=== PATIENT | female | born 1960 | race Caucasian/White ===

== ENCOUNTER 2016-05-05 00:14 | Inpatient (IN) | payer OTHER ==
[~2016-05-05] VITALS: Ht 170.2 cm; Wt 103.9 kg
[2016-05-05] VITALS (23 sets, daily range): BP systolic 76–121; BP diastolic 41–84
[2016-05-05 00:36] LABS: BASO % 1 % (0-3); EOS % 6 % (0-3); HEMATOCRIT 30.6 % (36.0-47.0); HEMOGLOBIN 10.4 g/dL (12.0-15.5); LYMPH % 30 % (24-48); MEAN CORPUSCULAR HEMOGLOBIN 32 pg (25-35); MEAN CORPUSCULAR HGB CONC 34 g/dL (31-37); MEAN CORPUSCULAR VOLUME 94 fL (79-100); MONO % 10 % (0-9); NEUT % 53 % (31-73); PLATELET COUNT 68 x10^3/uL (140-400); RED BLOOD COUNT 3.24 x10^6/uL (3.50-5.40); RED CELL DISTRIBUTION WIDTH 15.7 % (11.5-14.5); WHITE BLOOD COUNT 3.2 x10^3/uL (4.0-11.0)
[2016-05-05 00:43] LABS: INR 1.5 (0.8-1.1); PROTHROMBIN TIME PATIENT 17.4 SEC (11.7-14.0)
[2016-05-05 00:46] LABS: CALCIUM 8.6 mg/dL (8.5-10.1); CREATININE 0.8 mg/dL (0.6-1.0); GFR 74.2
[2016-05-05 00:52] LABS: ETHANOL < 10 mg/dL (0-10)
[2016-05-05 00:53] LABS: ALBUMIN 1.8 g/dL (3.4-5.0); DIRECT BILIRUBIN 0.4 mg/dL (0.0-0.2); TOTAL BILIRUBIN 1.1 mg/dL (0.2-1.0); TOTAL PROTEIN 4.9 g/dL (6.4-8.2)
--- NOTE | 2016-05-05 01:23 | PHYS DOC ---
Past Medical History Past Medical History: Asthma, Depression, GERD, Hypertension, Other Additional Past Medical Histor: PTSD, CIRRHOSIS Past Surgical History: Other Additional Past Surgical Histo: UNKOWN Alcohol Use: None Drug Use: None Adult General Chief Complaint Chief Complaint: OVERDOSE HPI HPI Patient is a 55 year old female who presents by EMS after calling her sister stating that she took multiple drugs to kill herself. Nursing spoke to sister via phone, who stated that the patient called her threatening to kill herself because she cannot stay with her today. Sister has been staying with her because of recent depression. Patient denies suicidality. Patient admits to taking medications today, but she will not tell when she took it, what she took , or how much she took. An empty bottle of Seroquel was found in her home by EMS , this bottle was filled 2 months. She denies Tylenol, aspirin, alcohol intake. She denies hallucinations, headache, vision changes, dizziness, numbness , tingling, weakness, chest pain, dyspnea, abdominal pain, nausea or vomiting, diarrhea, dysuria, fever or chills. Review of Systems Review of Systems Constitutional: Denies fever or chills [] Eyes: Denies change in visual acuity, redness, or eye pain [] HENT: Denies nasal congestion or sore throat [] Respiratory: Denies cough or shortness of breath [] Cardiovascular: No additional information not addressed in HPI [] GI: Denies abdominal pain, nausea, vomiting, bloody stools or diarrhea [] : Denies dysuria or hematuria [] Musculoskeletal: Denies back pain or joint pain [] Integument: Denies rash or skin lesions [] Neurologic: Denies headache, focal weakness or sensory changes [] Endocrine: Denies polyuria or polydipsia [] Current Medications Current Medications Current Medications Medications (Trade) Dose Ordered Sig/Sarah Start Time Stop Time Status Last Admin Dose Admin Acetaminophen (Tylenol) 650 mg PRN Q4HRS PRN 05/05/16 01:30 05/06/16 01:29 Lorazepam (Ativan) 1 mg 1X ONCE 05/05/16 01:45 05/05/16 01:46 UNV 05/05/16 01:45 1 MG Ondansetron HCl (Zofran) 4 mg PRN Q8HRS PRN 05/05/16 01:30 05/06/16 01:29 Allergies Allergies Allergies Coded Allergies Type Severity Reaction Last Updated Verified azithromycin Allergy Intermediate 05/05/16 Yes diphenhydramine Allergy Intermediate 05/05/16 Yes morphine Allergy Intermediate 05/05/16 Yes Physical Exam Physical Exam Constitutional: Well developed, well nourished, no acute distress, non-toxic appearance. [] HENT: Normocephalic, atraumatic, bilateral external ears normal, oropharynx moist, no oral exudates, nose normal. [] Eyes: PERRLA, EOMI, conjunctiva normal, no discharge. [] Neck: Normal range of motion, no tenderness, supple, no stridor. [] Cardiovascular:Heart rate regular rhythm [] Lungs & Thorax: Bilateral breath sounds clear to auscultation [] Abdomen: Bowel sounds normal, soft, no tenderness. [] Skin: Warm, dry, no erythema, no rash. [] Back: No tenderness, no CVA tenderness. [] Extremities: No tenderness, ROM intact, no edema. [] Neurologic: Alert and oriented to self only, normal motor function, normal sensory function, no focal deficits noted, cranial nerves II through XII intact , slightly slurred speech. [] Psychologic: Affect normal, judgement impaired by suspected intoxication, mood tearful. [] Current Patient Data Vital Signs Vital Signs Date Time Temp Pulse Resp B/P Pulse Ox O2 Delivery O2 Flow Rate FiO2 05/05/16 00:15 97.8 69 12 101/55 97 Nasal Cannula 2 97.8 Lab Values Laboratory Tests Test 05/05/16 00:20 White Blood Count 3.2x10^3/uL (4.0-11.0) L Red Blood Count 3.24x10^6/uL (3.50-5.40) L Hemoglobin 10.4g/dL (12.0-15.5) L Hematocrit 30.6% (36.0-47.0) L Mean Corpuscular Volume 94fL (79-100) Mean Corpuscular Hemoglobin 32pg (25-35) Mean Corpuscular Hemoglobin Concent 34g/dL (31-37) Red Cell Distribution Width 15.7% (11.5-14.5) H Platelet Count 68x10^3/uL (140-400) L Neutrophils (%) (Auto) 53% (31-73) Lymphocytes (%) (Auto) 30% (24-48) Monocytes (%) (Auto) 10% (0-9) H Eosinophils (%) (Auto) 6% (0-3) H Basophils (%) (Auto) 1% (0-3) Neutrophils # (Auto) 1.7x10^3uL (1.8-7.7) L Lymphocytes # (Auto) 1.0x10^3/uL (1.0-4.8) Monocytes # (Auto) 0.3x10^3/uL (0.0-1.1) Eosinophils # (Auto) 0.2x10^3/uL (0.0-0.7) Basophils # (Auto) 0.0x10^3/uL (0.0-0.2) Prothrombin Time 17.4SEC (11.7-14.0) H Prothrombin Time INR 1.5 (0.8-1.1) H Sodium Level 143mmol/L (136-145) Potassium Level 4.0mmol/L (3.5-5.1) Chloride Level 110mmol/L (98-107) H Carbon Dioxide Level 28mmol/L (21-32) Anion Gap 5 (6-14) L Blood Urea Nitrogen 16mg/dL (7-20) Creatinine 0.8mg/dL (0.6-1.0) Estimated GFR (Cockcroft-Gault) 74.2 Glucose Level 111mg/dL (70-99) H Calcium Level 8.6mg/dL (8.5-10.1) Total Bilirubin 1.1mg/dL (0.2-1.0) H Direct Bilirubin 0.4mg/dL (0.0-0.2) H Aspartate Amino Transferase (AST) 72U/L (15-37) H Alanine Aminotransferase (ALT) 39U/L (14-59) Alkaline Phosphatase 89U/L (46-116) Total Protein 4.9g/dL (6.4-8.2) L Albumin 1.8g/dL (3.4-5.0) L Salicylates Level < 2.8mg/dL (2.8-20.0) L Salicylate Last Dose Date Unk Salicylate Last Dose Time Unk Acetaminophen Level 4.1mcg/ml (10-30) L Acetaminophen Last Dose Date Unk Acetaminophen Last Dose Time Unk Ethyl Alcohol Level < 10mg/dL (0-10) Laboratory Tests 05/05/16 00:20 Laboratory Tests 05/05/16 00:20 EKG EKG EKG as interpreted by me as normal sinus rhythm, rate 66, no ST-T changes, normal intervals, no ectopy Radiology/Procedures Radiology/Procedures Chest xray as interpreted by me with no acute cardiopulmonary disease process Course & Med Decision Making Course & Med Decision Making Pertinent Labs and Imaging studies reviewed. (See chart for details) Workup is unremarkable. Her vital signs have stayed stable, other than being on 2 L nasal cannula. She has some agitation, of which she was given ativan IV. Due to unknown time of ingestion, the patient remains critical as intoxicants could up titrate. Will admit to ICU for close monitoring of unknown substance overdose. Discussed case with Dr. Bang, who will admit. Dragon Disclaimer Dragon Disclaimer This electronic medical record was generated, in whole or in part, using a voice recognition dictation system. Departure Departure Impression: Primary Impression: Suicidal overdose Additional Impression: Altered mental status Disposition: 09 ADMITTED INPATIENT Condition: CRITICAL Referrals: ILDA WILKINS MD (PCP) Problem Qualifiers Primary Impression: Suicidal overdose Encounter type: initial encounter Qualified Code: T50.902A - Poisoning by unspecified drugs, medicaments and biological substances, intentional self-harm , initial encounter Additional Impression: Altered mental status Altered mental status type: disorientation Qualified Code: R41.0 - Disorientation, unspecified Kevin FREITAS MD May 05, 2016 01:23
[2016-05-05] MEDS ORDERED: ACETAMINOPHEN 325 MG TABLET. PO PRN (01:30)
[2016-05-05] MEDS ORDERED: ONDANSETRON PF 4 MG/2 ML VIAL. IV PRN (01:30)
[2016-05-05] MEDS ORDERED: LORAZEPAM 2 MG/ML VIAL IV ONE (01:45)
[2016-05-05] MEDS ORDERED: RIFA550T PO (04:32)
[2016-05-05] MEDS ORDERED: LANS30CA PO (04:32)
[2016-05-05] MEDS ORDERED: ONDA4TAB12 PO (04:32)
[2016-05-05] MEDS ORDERED: CIPR500T PO (04:32)
[2016-05-05] MEDS ORDERED: SPIR50TA2 PO (04:33)
[2016-05-05] MEDS ORDERED: PROAIR HFA8.5 GM INH (04:33)
[2016-05-05] MEDS ORDERED: PROP10TA PO (04:33)
[2016-05-05] MEDS ORDERED: FOLI1TAB16 PO (04:33)
--- NOTE | 2016-05-05 05:23 | ACF ---
Admission Forms Criteria PSYCHIATRIC DISORDERS Clinical Indications for Inpatient Care (Place 'X' for any and all applicable criteria): Ongoing inpatient care may be needed for ANY ONE of the following(1)(2)(3)(4)(6) (7)(8): [X]I. Danger to self or others not manageable at lower level of care. [ ]II. Grave disability (eg, inability to perform self care necessary at lower level of care) [ ]III. Agitation or inappropriate behavior interfering with care for primary condition (eg, attempting to discontinue lines or drains prematurely, unable to cooperate with respiratory care) [ ]IV. Severe disability or disorder indicated by ALL of the following: [ ]a) Severe behavioral health disorder-related symptoms or condition indicated by ANY ONE of the following: [ ]i) Severe problem with cognition, memory, judgment, or impulse control [ ]ii) Severe clinical manifestations (eg, hallucinations, delusions, other acute psychotic symptoms, jesse, extreme agitation or anxiety) [ ]b) Patient management at lower level of care is not feasible until acute intervention or modification is initiated. Extended stay beyond goal length of stay for the primary condition may be indicated when ANY ONE of the following is present: (1)(2)(3)(4): [ ]a) Patient is a danger to self or others and not manageable at lower level of care. [ ]b) Behavior crisis management, including physical or chemical restraints, is required and is not available at a lower level of care. [ ]c) Behavioral symptoms (e.g., agitation, somnolence, inappropriate behavior) are present, and are not manageable at a lower level of care. [ ]d) Patient cannot understand follow-up treatment and crisis plan. [ ]e) Provider and supports are not sufficiently available at lower level of care. [ ]f) Patient cannot participate (e.g., verify absence of plan for harm) and is in needed of monitoring. The original [employer] content created by [employer] has been revised. The portions of the content which have been revised are identified through the use of italic text or in bold, and [facility] has neither reviewed nor approved the modified material. All other unmodified content is copyright [facility] [employer]. Please see references footnoted in the original [facility] edition 2016 Admission Criteria Met?: Yes TIAN STEWART May 05, 2016 05:23
[2016-05-05] MEDS: IV NORMAL SALINE 1000ML BAG 1,000 ML IV SCH ×2 (07:55→16:45)
--- NOTE | 2016-05-05 08:33 | RAD ---
EXAM: Chest one view. HISTORY: Altered mental status. COMPARISON: 08/23/2009. FINDINGS: A frontal view of the chest is obtained. There are no confluent infiltrates. There is no pneumothorax or pleural effusion. The heart is not enlarged. IMPRESSION: 1. No confluent infiltrates.
[2016-05-05] MEDS: PROPRANOLOL 10 MG TABLET. PO SCH ×2 (09:00→21:00)
[2016-05-05] MEDS: FOLIC ACID 1 MG TABLET PO SCH (09:00)
--- NOTE | 2016-05-05 09:01 | PDOC1 ---
History and Physical Date of Admission Date of Admission DATE: 05/05/16 TIME: 08:53 Identification/Chief Complaint Chief Complaint suicide attempt Source Source: Caregiver, Chart review History of Present Illness History of Present Illness Ms. Powell, is a 55 year old female admit to ICU, admit fos suicide attempt. She called her sister stating that she took multiple drugs to kill herself. Reported full bottle of seroquel. maybe 2 months of doses Given ativan in the ER for restlessness, agitated in the ER, was talking to the ER MD, but now is obtunded and not verbal. reported that her sister has been staying with her because of recent depression. Past Medical History GI: GERD, Irritable bowel disease Psych: Depression Current Problem List Problem List Problems Medical Problems: (1) Altered mental status Status: Acute (2) Suicidal overdose Status: Acute Problems: Current Medications Current Medications Current Medications Ondansetron HCl (Zofran) 4 mg PRN Q8HRS PRN IV NAUSEA/VOMITING; Start 05/05/16 at 01:30; Stop 05/06/16 at 01:29 Acetaminophen (Tylenol) 650 mg PRN Q4HRS PRN PO FEVER; Start 05/05/16 at 01:30 ; Stop 05/06/16 at 01:29 Lorazepam 1 mg 1 mg 1X ONCE IV Last administered on 05/05/16 01:45; Start 02/09 at 01:45; Stop 05/05/16 at 03:23; Status DC Sodium Chloride (Iv Sodium Chloride 0.9% 1000ml Bag) 1,000 ml @ 100 mls/hr Q10H IV Last administered on 05/05/16 07:55; Start 05/05/16 at 08:00 Active Scripts Active Reported Proair Hfa Inhaler (Albuterol Sulfate) 8.5 Gm Hfa.aer.ad 1 Puff INH Folic Acid 1 Mg Tablet 1 Mg PO Spironolactone 50 Mg Tablet 50 Mg PO Propranolol Hcl 10 Mg Tablet 10 Mg PO Lansoprazole 30 Mg Capsule.dr 30 Mg PO Xifaxan (Rifaximin) 550 Mg Tablet 1 Tab PO Ciprofloxacin Hcl 500 Mg Tablet 1 Tab PO Ondansetron Odt (Ondansetron) 4 Mg Tab.rapdis 1 Tab PO Allergies Allergies: Coded Allergies: azithromycin (Verified Allergy, Intermediate, 05/05/16) diphenhydramine (Verified Allergy, Intermediate, 05/05/16) morphine (Verified Allergy, Intermediate, 05/05/16) ROS Review of System unable, pt obtunded Physical Exam Physical Exam tele, reg sinus 65 General: No acute distress, Other (obtunded) HEENT: Atraumatic, PERRLA Lungs: Clear to auscultation, Normal air movement Heart: RRR, no murmurs Abdomen: Normal bowel sounds, Soft Extremities: No clubbing, No edema Skin: No rashes, No significant lesion Neuro: Normal tone, Other Psych/Mental Status: Other Vitals Vitals Vital Signs Date Time Temp Pulse Resp B/P Pulse Ox O2 Delivery O2 Flow Rate FiO2 05/05/16 08:00 98.0 68 13 83/42 99 Nasal Cannula 2.0 98.0 Labs Labs Laboratory Tests Test 05/05/16 00:20 White Blood Count 3.2x10^3/uL (4.0-11.0) Red Blood Count 3.24x10^6/uL (3.50-5.40) Hemoglobin 10.4g/dL (12.0-15.5) Hematocrit 30.6% (36.0-47.0) Mean Corpuscular Volume 94fL (79-100) Mean Corpuscular Hemoglobin 32pg (25-35) Mean Corpuscular Hemoglobin Concent 34g/dL (31-37) Red Cell Distribution Width 15.7% (11.5-14.5) Platelet Count 68x10^3/uL (140-400) Neutrophils (%) (Auto) 53% (31-73) Lymphocytes (%) (Auto) 30% (24-48) Monocytes (%) (Auto) 10% (0-9) Eosinophils (%) (Auto) 6% (0-3) Basophils (%) (Auto) 1% (0-3) Neutrophils # (Auto) 1.7x10^3uL (1.8-7.7) Lymphocytes # (Auto) 1.0x10^3/uL (1.0-4.8) Monocytes # (Auto) 0.3x10^3/uL (0.0-1.1) Eosinophils # (Auto) 0.2x10^3/uL (0.0-0.7) Basophils # (Auto) 0.0x10^3/uL (0.0-0.2) Prothrombin Time 17.4SEC (11.7-14.0) Prothromb Time International Ratio 1.5 (0.8-1.1) Sodium Level 143mmol/L (136-145) Potassium Level 4.0mmol/L (3.5-5.1) Chloride Level 110mmol/L (98-107) Carbon Dioxide Level 28mmol/L (21-32) Anion Gap 5 (6-14) Blood Urea Nitrogen 16mg/dL (7-20) Creatinine 0.8mg/dL (0.6-1.0) Estimated GFR (Cockcroft-Gault) 74.2 Glucose Level 111mg/dL (70-99) Calcium Level 8.6mg/dL (8.5-10.1) Total Bilirubin 1.1mg/dL (0.2-1.0) Direct Bilirubin 0.4mg/dL (0.0-0.2) Aspartate Amino Transf (AST/SGOT) 72U/L (15-37) Alanine Aminotransferase (ALT/SGPT) 39U/L (14-59) Alkaline Phosphatase 89U/L (46-116) Total Protein 4.9g/dL (6.4-8.2) Albumin 1.8g/dL (3.4-5.0) Salicylates Level < 2.8mg/dL (2.8-20.0) Salicylate Last Dose Date Unk Salicylate Last Dose Time Unk Acetaminophen Level 4.1mcg/ml (10-30) Acetaminophen Last Dose Date Unk Acetaminophen Last Dose Time Unk Ethyl Alcohol Level < 10mg/dL (0-10) Laboratory Tests Test 05/05/16 00:20 White Blood Count 3.2x10^3/uL (4.0-11.0) Red Blood Count 3.24x10^6/uL (3.50-5.40) Hemoglobin 10.4g/dL (12.0-15.5) Hematocrit 30.6% (36.0-47.0) Mean Corpuscular Volume 94fL (79-100) Mean Corpuscular Hemoglobin 32pg (25-35) Mean Corpuscular Hemoglobin Concent 34g/dL (31-37) Red Cell Distribution Width 15.7% (11.5-14.5) Platelet Count 68x10^3/uL (140-400) Neutrophils (%) (Auto) 53% (31-73) Lymphocytes (%) (Auto) 30% (24-48) Monocytes (%) (Auto) 10% (0-9) Eosinophils (%) (Auto) 6% (0-3) Basophils (%) (Auto) 1% (0-3) Neutrophils # (Auto) 1.7x10^3uL (1.8-7.7) Lymphocytes # (Auto) 1.0x10^3/uL (1.0-4.8) Monocytes # (Auto) 0.3x10^3/uL (0.0-1.1) Eosinophils # (Auto) 0.2x10^3/uL (0.0-0.7) Basophils # (Auto) 0.0x10^3/uL (0.0-0.2) Prothrombin Time 17.4SEC (11.7-14.0) Prothromb Time International Ratio 1.5 (0.8-1.1) Sodium Level 143mmol/L (136-145) Potassium Level 4.0mmol/L (3.5-5.1) Chloride Level 110mmol/L (98-107) Carbon Dioxide Level 28mmol/L (21-32) Anion Gap 5 (6-14) Blood Urea Nitrogen 16mg/dL (7-20) Creatinine 0.8mg/dL (0.6-1.0) Estimated GFR (Cockcroft-Gault) 74.2 Glucose Level 111mg/dL (70-99) Calcium Level 8.6mg/dL (8.5-10.1) Total Bilirubin 1.1mg/dL (0.2-1.0) Direct Bilirubin 0.4mg/dL (0.0-0.2) Aspartate Amino Transf (AST/SGOT) 72U/L (15-37) Alanine Aminotransferase (ALT/SGPT) 39U/L (14-59) Alkaline Phosphatase 89U/L (46-116) Total Protein 4.9g/dL (6.4-8.2) Albumin 1.8g/dL (3.4-5.0) Salicylates Level < 2.8mg/dL (2.8-20.0) Salicylate Last Dose Date Unk Salicylate Last Dose Time Unk Acetaminophen Level 4.1mcg/ml (10-30) Acetaminophen Last Dose Date Unk Acetaminophen Last Dose Time Unk Ethyl Alcohol Level < 10mg/dL (0-10) VTE Prophylaxis Ordered VTE Prophylaxis Devices: No VTE Pharmacological Prophylaxi: No Assessment/Plan Assessment/Plan suicide attempt seroquel overdose, tele 24 hours, monitor QT interval on EKG major depression ICU admit, 1:1 GERD, irritable bowel overweight, BMI 30 LIZ COULTER MD May 05, 2016 09:01
[2016-05-05] MEDS: PANTOPRAZOLE 40 MG TABLET. PO SCH (09:10)
[2016-05-05] MEDS: RIFAXIMIN 550 MG TABLET PO SCH (09:10)
--- NOTE | 2016-05-05 12:52 | EKG ---
[facility] [address] [place] [address] Test Date: 2016-05-05 Test Time: 00:25:54 Pat Name: ANTONIO LUNDY Department: Room: Gender: F Data Migration Consultant: : 1960 Requested By: Kevin FREITAS Order Number: [id number] Reading MD: Measurements Intervals [place] Rate: 66 P: 59 CT: 142 QRS: 54 QRSD: 78 T: 38 QT: 436 QTc: 459 Interpretive Statements SINUS RHYTHM QRS(T) CONTOUR ABNORMALITY CONSIDER ANTEROLATERAL MYOCARDIAL DAMAGE CONSIDER INFERIOR MYOCARDIAL DAMAGE RI6.01 Unconfirmed report No previous ECG available for comparison
--- NOTE | 2016-05-05 18:24 | RAD ---
PROCEDURE Chest 1 view. HISTORY Wheezing. COMPARISON 05/05/2016 at 1:47. FINDINGS There is a new mild airspace opacity in the right base. Hyperinflation suggests chronic obstructive pulmonary disease or air trapping. There is no pneumothorax or pleural effusion. The heart is not enlarged. IMPRESSION - Hyperinflation suggests air trapping. - New mild atelectasis or infiltrate in the right base. Electronically signed by: Alex Gray (May 05, 2016 18:23:20)
[2016-05-06] VITALS (17 sets, daily range): BP systolic 94–153; BP diastolic 47–83
[2016-05-06] MEDS: IV NORMAL SALINE 1000ML BAG 1,000 ML IV SCH ×3 (01:53→20:26)
[2016-05-06 05:27] LABS: BASO % 1 % (0-3); EOS % 5 % (0-3); HEMATOCRIT 30.6 % (36.0-47.0); HEMOGLOBIN 10.4 g/dL (12.0-15.5); LYMPH # 0.6 x10^3/uL (1.0-4.8); LYMPH % 32 % (24-48); MEAN CORPUSCULAR HEMOGLOBIN 32 pg (25-35); MEAN CORPUSCULAR HGB CONC 34 g/dL (31-37); MEAN CORPUSCULAR VOLUME 94 fL (79-100); MONO % 10 % (0-9); NEUT % 52 % (31-73); PLATELET COUNT 52 x10^3/uL (140-400); RED BLOOD COUNT 3.26 x10^6/uL (3.50-5.40); RED CELL DISTRIBUTION WIDTH 16.2 % (11.5-14.5)
[2016-05-06 05:51] LABS: ALBUMIN 1.7 g/dL (3.4-5.0); ALBUMIN/GLOBULIN RATIO 0.5 (1.0-1.7); CALCIUM 7.8 mg/dL (8.5-10.1); CREATININE 0.7 mg/dL (0.6-1.0); GFR 86.6; POTASSIUM 3.9 mmol/L (3.5-5.1); TOTAL BILIRUBIN 0.8 mg/dL (0.2-1.0); TOTAL PROTEIN 4.8 g/dL (6.4-8.2)
[2016-05-06] MEDS: RIFAXIMIN 550 MG TABLET PO SCH (08:48)
[2016-05-06] MEDS: PANTOPRAZOLE 40 MG TABLET. PO SCH (08:48)
[2016-05-06] MEDS: PROPRANOLOL 10 MG TABLET. PO SCH ×2 (08:48→20:27)
[2016-05-06] MEDS: FOLIC ACID 1 MG TABLET PO SCH (08:48)
--- NOTE | 2016-05-06 09:50 | PDOC ---
PROGRESS NOTES Chief Complaint Chief Complaint Intentional drug overdose Suicide attempt ASSESSMENT AND PLAN: 1. Drug overdose: Seroquel ingestion w/o cardiac impairment. monitor on tele for now 2. Sedation: drug induced. await spontaneous recovery 3. SA: PAT team osiris 4. Dispo: transfer to floor Vitals Vitals Vital Signs Date Time Temp Pulse Resp B/P Pulse Ox O2 Delivery O2 Flow Rate FiO2 05/06/16 09:00 69 14 138/71 97 Nasal Cannula 2.0 05/06/16 07:00 97.6 97.6 Physical Exam General: No acute distress, Other (lethargic) Heart: Regular rate Lungs: Clear Abdomen: Normal bowel sounds, Soft Extremities: No clubbing, No edema Skin: No rashes Labs LABS Laboratory Tests Test 05/06/16 04:47 White Blood Count 2.0x10^3/uL (4.0-11.0) Red Blood Count 3.26x10^6/uL (3.50-5.40) Hemoglobin 10.4g/dL (12.0-15.5) Hematocrit 30.6% (36.0-47.0) Mean Corpuscular Volume 94fL (79-100) Mean Corpuscular Hemoglobin 32pg (25-35) Mean Corpuscular Hemoglobin Concent 34g/dL (31-37) Red Cell Distribution Width 16.2% (11.5-14.5) Platelet Count 52x10^3/uL (140-400) Neutrophils (%) (Auto) 52% (31-73) Lymphocytes (%) (Auto) 32% (24-48) Monocytes (%) (Auto) 10% (0-9) Eosinophils (%) (Auto) 5% (0-3) Basophils (%) (Auto) 1% (0-3) Neutrophils # (Auto) 1.1x10^3uL (1.8-7.7) Lymphocytes # (Auto) 0.6x10^3/uL (1.0-4.8) Monocytes # (Auto) 0.2x10^3/uL (0.0-1.1) Eosinophils # (Auto) 0.1x10^3/uL (0.0-0.7) Basophils # (Auto) 0.0x10^3/uL (0.0-0.2) Sodium Level 143mmol/L (136-145) Potassium Level 3.9mmol/L (3.5-5.1) Chloride Level 113mmol/L (98-107) Carbon Dioxide Level 26mmol/L (21-32) Anion Gap 4 (6-14) Blood Urea Nitrogen 14mg/dL (7-20) Creatinine 0.7mg/dL (0.6-1.0) Estimated GFR (Cockcroft-Gault) 86.6 BUN/Creatinine Ratio 20 (6-20) Glucose Level 78mg/dL (70-99) Calcium Level 7.8mg/dL (8.5-10.1) Total Bilirubin 0.8mg/dL (0.2-1.0) Aspartate Amino Transf (AST/SGOT) 93U/L (15-37) Alanine Aminotransferase (ALT/SGPT) 45U/L (14-59) Alkaline Phosphatase 69U/L (46-116) Total Protein 4.8g/dL (6.4-8.2) Albumin 1.7g/dL (3.4-5.0) Albumin/Globulin Ratio 0.5 (1.0-1.7) Review of Systems Review of Systems lethargic, states she is tired, but denies pain. not hungry DASIA SHARP MD May 06, 2016 09:50
[2016-05-07] VITALS (7 sets, daily range): BP systolic 119–145; BP diastolic 68–85
[2016-05-07] MEDS: TRAMADOL 50 MG TABLET. PO PRN ×2 (02:26→20:07)
[2016-05-07] MEDS ORDERED: IPRATRPIUM/ALBUTEROL 0.5/2.5MG 3 ML NEBU. ONE (03:41)
[2016-05-07] MEDS: IV NORMAL SALINE 1000ML BAG 1,000 ML IV SCH ×2 (06:05→18:00)
[2016-05-07] MEDS: PANTOPRAZOLE 40 MG TABLET. PO SCH (09:04)
[2016-05-07] MEDS: RIFAXIMIN 550 MG TABLET PO SCH (09:04)
[2016-05-07] MEDS: FOLIC ACID 1 MG TABLET PO SCH (09:04)
[2016-05-07] MEDS: PROPRANOLOL 10 MG TABLET. PO SCH ×2 (09:04→20:36)
--- NOTE | 2016-05-07 11:52 | PDOC ---
PROGRESS NOTES Chief Complaint Chief Complaint Intentional drug overdose Suicide attempt History of Present Illness History of Present Illness Patient was transferred from the ICU. No acute events overnight. She remains slightly groggy but responds to questions. She is now stating that she does not want to receive inpatient psychiatric treatment. Social work is following and helping with re-evaluation and placement. Vitals Vitals Vital Signs Date Time Temp Pulse Resp B/P Pulse Ox O2 Delivery O2 Flow Rate FiO2 05/07/16 11:04 98.4 72 18 132/73 94 Nasal Cannula 2.0 98.4 Physical Exam General: Alert, Cooperative, No acute distress, Other (lethargic) Heart: Regular rate, No murmurs Lungs: Clear, Other (no wheezing) Abdomen: Soft, No tenderness Extremities: No cyanosis, No edema Skin: No breakdown Review of Systems Review of Systems Denies chest pain and shortness of breath. Denies fever and chills. Assessment and Plan Assessmemt and Plan Problems Medical Problems: (1) Altered mental status Status: Acute (2) Suicidal overdose Status: Acute ASSESSMENT: 1. Drug overdose: Seroquel ingestion w/o cardiac impairment. 2. Sedation: drug induced. 3. Suicide attempt PLAN: Awaiting re-evaluation for possibility of outpatient psychiatric treatment since patient is no longer agreeable to inpatient treatment Continue tramadol Continue IVF, NS at 100ml/hr Continue 1:1 monitoring Continue to monitor daily labs PT/OT eval and treat Problems: Comment Review of Relevant I have reviewed the following items taamr (where applicable) has been applied. Labs Laboratory Tests Test 05/06/16 04:47 White Blood Count 2.0x10^3/uL (4.0-11.0) Red Blood Count 3.26x10^6/uL (3.50-5.40) Hemoglobin 10.4g/dL (12.0-15.5) Hematocrit 30.6% (36.0-47.0) Mean Corpuscular Volume 94fL (79-100) Mean Corpuscular Hemoglobin 32pg (25-35) Mean Corpuscular Hemoglobin Concent 34g/dL (31-37) Red Cell Distribution Width 16.2% (11.5-14.5) Platelet Count 52x10^3/uL (140-400) Neutrophils (%) (Auto) 52% (31-73) Lymphocytes (%) (Auto) 32% (24-48) Monocytes (%) (Auto) 10% (0-9) Eosinophils (%) (Auto) 5% (0-3) Basophils (%) (Auto) 1% (0-3) Neutrophils # (Auto) 1.1x10^3uL (1.8-7.7) Lymphocytes # (Auto) 0.6x10^3/uL (1.0-4.8) Monocytes # (Auto) 0.2x10^3/uL (0.0-1.1) Eosinophils # (Auto) 0.1x10^3/uL (0.0-0.7) Basophils # (Auto) 0.0x10^3/uL (0.0-0.2) Sodium Level 143mmol/L (136-145) Potassium Level 3.9mmol/L (3.5-5.1) Chloride Level 113mmol/L (98-107) Carbon Dioxide Level 26mmol/L (21-32) Anion Gap 4 (6-14) Blood Urea Nitrogen 14mg/dL (7-20) Creatinine 0.7mg/dL (0.6-1.0) Estimated GFR (Cockcroft-Gault) 86.6 BUN/Creatinine Ratio 20 (6-20) Glucose Level 78mg/dL (70-99) Calcium Level 7.8mg/dL (8.5-10.1) Total Bilirubin 0.8mg/dL (0.2-1.0) Aspartate Amino Transf (AST/SGOT) 93U/L (15-37) Alanine Aminotransferase (ALT/SGPT) 45U/L (14-59) Alkaline Phosphatase 69U/L (46-116) Total Protein 4.8g/dL (6.4-8.2) Albumin 1.7g/dL (3.4-5.0) Albumin/Globulin Ratio 0.5 (1.0-1.7) Medications Current Medications Ondansetron HCl (Zofran) 4 mg PRN Q8HRS PRN IV NAUSEA/VOMITING; Start 05/05/16 at 01:30; Stop 05/06/16 at 01:29; Status DC Acetaminophen (Tylenol) 650 mg PRN Q4HRS PRN PO FEVER Last administered on 05/05t 21:30; Start 05/05/16 at 01:30; Stop 05/06/16 at 01:29; Status DC Lorazepam 1 mg 1 mg 1X ONCE IV Last administered on 05/05/16 01:45; Start 02/09 at 01:45; Stop 05/05/16 at 03:23; Status DC Sodium Chloride (Iv Sodium Chloride 0.9% 1000ml Bag) 1,000 ml @ 100 mls/hr Q10H IV Last administered on 05/07/16 06:05; Start 05/05/16 at 08:00 Folic Acid (Folic Acid) 1 mg DAILY PO Last administered on 05/07/16 09:04; Start 05/05/16 at 09:00 Propranolol HCl (Inderal) 10 mg BID PO Last administered on 05/07/16 09:04; Start 05/05/16 at 09:00 Rifaximin (Xifaxan) 550 mg DAILY PO Last administered on 05/07/16 09:04; Start 05/05/16 at 10:00 Pantoprazole Sodium (Protonix) 40 mg DAILYAC PO Last administered on 05/07/16 09:04; Start 05/05/16 at 10:00 Tramadol HCl (Ultram) 50 mg PRN Q6HRS PRN PO PAIN Last administered on 02:26; Start 05/07/16 at 02:15 Albuterol Sulfate (Ventolin Neb Soln) 2.5 mg PRN QID PRN NEB COUGH; Start 05/07 at 03:15 Albuterol/ Ipratropium (Duoneb) 3 ml STK-MED ONCE .ROUTE ; Start 05/07/16 at 03: 41; Stop 05/07/16 at 03:51; Status DC Active Scripts Active Reported Proair Hfa Inhaler (Albuterol Sulfate) 8.5 Gm Hfa.aer.ad 1 Puff INH Folic Acid 1 Mg Tablet 1 Mg PO Spironolactone 50 Mg Tablet 50 Mg PO Propranolol Hcl 10 Mg Tablet 10 Mg PO Lansoprazole 30 Mg Capsule.dr 30 Mg PO Xifaxan (Rifaximin) 550 Mg Tablet 1 Tab PO Ciprofloxacin Hcl 500 Mg Tablet 1 Tab PO Ondansetron Odt (Ondansetron) 4 Mg Tab.rapdis 1 Tab PO Vitals/I & O Vital Sign - Last 24 Hours 05/06/16 05/06/16 05/06/16 05/06/16 12:00 12:00 16:00 16:42 Temp 98.0 98.3 98.0 98.3 Pulse 73 71 74 Resp 24 14 22 B/P 128/71 113/70 133/72 Pulse Ox 97 97 95 O2 Delivery Nasal Cannula Nasal Cannula Nasal Cannula Nasal Cannula O2 Flow Rate 2.0 2.0 2.0 2.0 05/06/16 05/06/16 05/06/16 05/06/16 19:22 20:00 20:27 23:14 Temp 98.0 98.3 98.0 98.3 Pulse 75 75 75 Resp 16 16 B/P 137/65 137/65 130/72 Pulse Ox 93 94 O2 Delivery Nasal Cannula Nasal Cannula Nasal Cannula O2 Flow Rate 2.0 2.0 2.0 05/07/16 05/07/16 05/07/16 05/07/16 02:26 03:00 04:00 07:15 Temp 97.9 98.7 97.9 98.7 Pulse 85 73 Resp 18 30 22 20 B/P 135/82 140/85 Pulse Ox 91 95 O2 Delivery Nasal Cannula Nasal Cannula Nasal Cannula Nasal Cannula O2 Flow Rate 2.0 2.0 2.0 2.0 05/07/16 05/07/16 05/07/16 09:04 09:06 11:04 Temp 98.4 98.4 Pulse 73 72 Resp 18 B/P 140/85 132/73 Pulse Ox 89 94 O2 Delivery Room Air Nasal Cannula O2 Flow Rate 2.0 Intake and Output 05/06/16 05/06/16 05/07/16 15:00 23:00 07:00 Intake Total 160 ml 1037 ml 600 ml Output Total 510 ml 60 ml 850 ml Balance -350 ml 977 ml -250 ml SIRISHA LEMONS III DO May 07, 2016 11:52
[2016-05-08] MEDS: IV NORMAL SALINE 1000ML BAG 1,000 ML IV SCH ×2 (01:57→11:33)
[2016-05-08 02:50] VITALS: BP 130/66
[2016-05-08] MEDS: TRAMADOL 50 MG TABLET. PO PRN ×2 (03:10→11:32)
[2016-05-08 06:51] LABS: CALCIUM 7.4 mg/dL (8.5-10.1); CREATININE 0.5 mg/dL (0.6-1.0); GFR 127.6; POTASSIUM 4.1 mmol/L (3.5-5.1)
[2016-05-08] MEDS: PANTOPRAZOLE 40 MG TABLET. PO SCH (07:18)
[2016-05-08 07:33] VITALS: BP 137/75
[2016-05-08 07:40] LABS: BASO # 0.1 x10^3/uL (0.0-0.2); BASO % 1 % (0-3); EOS % 7 % (0-3); HEMATOCRIT 36.4 % (36.0-47.0); HEMOGLOBIN 12.1 g/dL (12.0-15.5); LYMPH # 1.3 x10^3/uL (1.0-4.8); LYMPH % 20 % (24-48); MEAN CORPUSCULAR HEMOGLOBIN 32 pg (25-35); MEAN CORPUSCULAR HGB CONC 33 g/dL (31-37); MEAN CORPUSCULAR VOLUME 96 fL (79-100); MONO % 9 % (0-9); NEUT % 63 % (31-73); PLATELET COUNT 88 x10^3/uL (140-400); RED BLOOD COUNT 3.78 x10^6/uL (3.50-5.40); RED CELL DISTRIBUTION WIDTH 16.2 % (11.5-14.5); WHITE BLOOD COUNT 6.4 x10^3/uL (4.0-11.0)
[2016-05-08] MEDS: PROPRANOLOL 10 MG TABLET. PO SCH ×2 (08:39→21:10)
[2016-05-08] MEDS: FOLIC ACID 1 MG TABLET PO SCH (08:39)
[2016-05-08] MEDS: RIFAXIMIN 550 MG TABLET PO SCH (08:39)
[2016-05-08 10:54] VITALS: BP 160/84
[2016-05-08] MEDS: ALBUTEROL SULFATE 2.5 MG/3 ML NEBU. NEB PRN ×2 (12:02→14:51)
[2016-05-08 12:33] LABS: HCO3 ABG 27 mmol/L (21-28); PCO2 ABG 59 mmHg (35-46); PH ABG 7.28 (7.35-7.45); PO2 ABG 78 mmHg (75-108); SAT O2 ABG 95 % (92-99)
[2016-05-08 12:36] LABS: FIO2 ABG 32
--- NOTE | 2016-05-08 12:52 | RAD ---
Indication: Change in respiratory status. Technique: Upright portable chest radiograph was obtained. Comparison is from 3 days earlier. Findings: There is basilar atelectasis and/or infiltrate, right greater than left, with the right hemidiaphragm now obscured and the left hemidiaphragm partially obscured. The heart is not enlarged and there is no definite heart failure. Bony structures are intact. Impression: New basilar atelectasis and or infiltrate, right greater than left.
--- NOTE | 2016-05-08 13:55 | PDOC ---
PROGRESS NOTES Chief Complaint Chief Complaint Intentional drug overdose Suicide attempt History of Present Illness History of Present Illness Patient sitting up in bed with son at bedside when evaluated this AM. 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 [place] [facility] [place] reports that pt was hypoxic with O2 sat of 82 when trialed on room air. Pt now with obvious wheeze and has some shortness of breath. Pt agreeable to pulmonary workup. Vitals Vitals Vital Signs Date Time Temp Pulse Resp B/P Pulse Ox O2 Delivery O2 Flow Rate FiO2 05/08/16 12:07 95 Nasal Cannula 3.0 05/08/16 10:54 97.5 67 24 160/84 97.5 Physical Exam General: Alert, Cooperative, No acute distress, Other (lethargic) Heart: Regular rate, No murmurs Lungs: Wheezing Abdomen: Soft, No tenderness Extremities: No cyanosis, No edema Skin: No breakdown Labs LABS Laboratory Tests Test 05/08/16 06:15 05/08/16 12:01 White Blood Count 6.4x10^3/uL (4.0-11.0) Red Blood Count 3.78x10^6/uL (3.50-5.40) Hemoglobin 12.1g/dL (12.0-15.5) Hematocrit 36.4% (36.0-47.0) Mean Corpuscular Volume 96fL (79-100) Mean Corpuscular Hemoglobin 32pg (25-35) Mean Corpuscular Hemoglobin Concent 33g/dL (31-37) Red Cell Distribution Width 16.2% (11.5-14.5) Platelet Count 88x10^3/uL (140-400) Neutrophils (%) (Auto) 63% (31-73) Lymphocytes (%) (Auto) 20% (24-48) Monocytes (%) (Auto) 9% (0-9) Eosinophils (%) (Auto) 7% (0-3) Basophils (%) (Auto) 1% (0-3) Neutrophils # (Auto) 4.0x10^3uL (1.8-7.7) Lymphocytes # (Auto) 1.3x10^3/uL (1.0-4.8) Monocytes # (Auto) 0.6x10^3/uL (0.0-1.1) Eosinophils # (Auto) 0.5x10^3/uL (0.0-0.7) Basophils # (Auto) 0.1x10^3/uL (0.0-0.2) Sodium Level 141mmol/L (136-145) Potassium Level 4.1mmol/L (3.5-5.1) Chloride Level 111mmol/L (98-107) Carbon Dioxide Level 28mmol/L (21-32) Anion Gap 2 (6-14) Blood Urea Nitrogen 9mg/dL (7-20) Creatinine 0.5mg/dL (0.6-1.0) Estimated GFR (Cockcroft-Gault) 127.6 Glucose Level 115mg/dL (70-99) Calcium Level 7.4mg/dL (8.5-10.1) O2 Saturation 95% (92-99) Arterial Blood pH 7.28 (7.35-7.45) Arterial Blood pCO2 at Patient Temp 59mmHg (35-46) Arterial Blood pO2 at Patient Temp 78mmHg (75-108) Arterial Blood HCO3 27mmol/L (21-28) Arterial Blood Base Excess -1mmol/L (-3-3) FiO2 32 Review of Systems Review of Systems denies fever, chills + wheeze, shortness of air, hypoxia denies chest pain Assessment and Plan Assessmemt and Plan ASSESSMENT: 1. Drug overdose: Seroquel ingestion w/o cardiac impairment. 2. Sedation: drug induced. 3. Suicide attempt PLAN: - director agricultural services working on psych placement. [facility], admission acceptance pending. - consult Pulmonology; pt now with wheeze and has been hypoxic when off supplemental O2. - ABG and CXR in preparation for Pulmonary visit - cont tramadol - cont IVF, NS at 100ml/hr - cont 1:1 monitoring - cont to monitor daily labs - PT/OT eval and treat Problems: Comment Review of Relevant I have reviewed the following items tamar (where applicable) has been applied. Labs Laboratory Tests Test 05/08/16 06:15 05/08/16 12:01 White Blood Count 6.4x10^3/uL (4.0-11.0) Red Blood Count 3.78x10^6/uL (3.50-5.40) Hemoglobin 12.1g/dL (12.0-15.5) Hematocrit 36.4% (36.0-47.0) Mean Corpuscular Volume 96fL (79-100) Mean Corpuscular Hemoglobin 32pg (25-35) Mean Corpuscular Hemoglobin Concent 33g/dL (31-37) Red Cell Distribution Width 16.2% (11.5-14.5) Platelet Count 88x10^3/uL (140-400) Neutrophils (%) (Auto) 63% (31-73) Lymphocytes (%) (Auto) 20% (24-48) Monocytes (%) (Auto) 9% (0-9) Eosinophils (%) (Auto) 7% (0-3) Basophils (%) (Auto) 1% (0-3) Neutrophils # (Auto) 4.0x10^3uL (1.8-7.7) Lymphocytes # (Auto) 1.3x10^3/uL (1.0-4.8) Monocytes # (Auto) 0.6x10^3/uL (0.0-1.1) Eosinophils # (Auto) 0.5x10^3/uL (0.0-0.7) Basophils # (Auto) 0.1x10^3/uL (0.0-0.2) Sodium Level 141mmol/L (136-145) Potassium Level 4.1mmol/L (3.5-5.1) Chloride Level 111mmol/L (98-107) Carbon Dioxide Level 28mmol/L (21-32) Anion Gap 2 (6-14) Blood Urea Nitrogen 9mg/dL (7-20) Creatinine 0.5mg/dL (0.6-1.0) Estimated GFR (Cockcroft-Gault) 127.6 Glucose Level 115mg/dL (70-99) Calcium Level 7.4mg/dL (8.5-10.1) O2 Saturation 95% (92-99) Arterial Blood pH 7.28 (7.35-7.45) Arterial Blood pCO2 at Patient Temp 59mmHg (35-46) Arterial Blood pO2 at Patient Temp 78mmHg (75-108) Arterial Blood HCO3 27mmol/L (21-28) Arterial Blood Base Excess -1mmol/L (-3-3) FiO2 32 Laboratory Tests Test 05/08/16 06:15 05/08/16 12:01 White Blood Count 6.4x10^3/uL (4.0-11.0) Red Blood Count 3.78x10^6/uL (3.50-5.40) Hemoglobin 12.1g/dL (12.0-15.5) Hematocrit 36.4% (36.0-47.0) Mean Corpuscular Volume 96fL (79-100) Mean Corpuscular Hemoglobin 32pg (25-35) Mean Corpuscular Hemoglobin Concent 33g/dL (31-37) Red Cell Distribution Width 16.2% (11.5-14.5) Platelet Count 88x10^3/uL (140-400) Neutrophils (%) (Auto) 63% (31-73) Lymphocytes (%) (Auto) 20% (24-48) Monocytes (%) (Auto) 9% (0-9) Eosinophils (%) (Auto) 7% (0-3) Basophils (%) (Auto) 1% (0-3) Neutrophils # (Auto) 4.0x10^3uL (1.8-7.7) Lymphocytes # (Auto) 1.3x10^3/uL (1.0-4.8) Monocytes # (Auto) 0.6x10^3/uL (0.0-1.1) Eosinophils # (Auto) 0.5x10^3/uL (0.0-0.7) Basophils # (Auto) 0.1x10^3/uL (0.0-0.2) Sodium Level 141mmol/L (136-145) Potassium Level 4.1mmol/L (3.5-5.1) Chloride Level 111mmol/L (98-107) Carbon Dioxide Level 28mmol/L (21-32) Anion Gap 2 (6-14) Blood Urea Nitrogen 9mg/dL (7-20) Creatinine 0.5mg/dL (0.6-1.0) Estimated GFR (Cockcroft-Gault) 127.6 Glucose Level 115mg/dL (70-99) Calcium Level 7.4mg/dL (8.5-10.1) O2 Saturation 95% (92-99) Arterial Blood pH 7.28 (7.35-7.45) Arterial Blood pCO2 at Patient Temp 59mmHg (35-46) Arterial Blood pO2 at Patient Temp 78mmHg (75-108) Arterial Blood HCO3 27mmol/L (21-28) Arterial Blood Base Excess -1mmol/L (-3-3) FiO2 32 Medications Current Medications Ondansetron HCl (Zofran) 4 mg PRN Q8HRS PRN IV NAUSEA/VOMITING; Start 05/05/16 at 01:30; Stop 05/06/16 at 01:29; Status DC Acetaminophen (Tylenol) 650 mg PRN Q4HRS PRN PO FEVER Last administered on 05/05 21:30; Start 05/05/16 at 01:30; Stop 05/06/16 at 01:29; Status DC Lorazepam 1 mg 1 mg 1X ONCE IV Last administered on 05/05/16 01:45; Start 02/09 at 01:45; Stop 05/05/16 at 03:23; Status DC Sodium Chloride (Iv Sodium Chloride 0.9% 1000ml Bag) 1,000 ml @ 100 mls/hr Q10H IV Last administered on 05/08/16 11:33; Start 05/05/16 at 08:00 Folic Acid (Folic Acid) 1 mg DAILY PO Last administered on 05/08/16 08:39; Start 05/05/16 at 09:00 Propranolol HCl (Inderal) 10 mg BID PO Last administered on 05/08/16 08:39; Start 05/05/16 at 09:00 Rifaximin (Xifaxan) 550 mg DAILY PO Last administered on 05/08/16 08:39; Start 05/05/16 at 10:00 Pantoprazole Sodium (Protonix) 40 mg DAILYAC PO Last administered on 05/08/16 07:18; Start 05/05/16 at 10:00 Tramadol HCl (Ultram) 50 mg PRN Q6HRS PRN PO PAIN Last administered on 11:32; Start 05/07/16 at 02:15 Albuterol Sulfate (Ventolin Neb Soln) 2.5 mg PRN QID PRN NEB COUGH Last administered on 05/08/16 12:02; Start 05/07/16 at 03:15 Albuterol/ Ipratropium (Duoneb) 3 ml STK-MED ONCE .ROUTE ; Start 05/07/16 at 03: 41; Stop 05/07/16 at 03:51; Status DC Active Scripts Active Reported Proair Hfa Inhaler (Albuterol Sulfate) 8.5 Gm Hfa.aer.ad 1 Puff INH Folic Acid 1 Mg Tablet 1 Mg PO Spironolactone 50 Mg Tablet 50 Mg PO Propranolol Hcl 10 Mg Tablet 10 Mg PO Lansoprazole 30 Mg Capsule.dr 30 Mg PO Xifaxan (Rifaximin) 550 Mg Tablet 1 Tab PO Ciprofloxacin Hcl 500 Mg Tablet 1 Tab PO Ondansetron Odt (Ondansetron) 4 Mg Tab.rapdis 1 Tab PO Vitals/I & O Vital Sign - Last 24 Hours 05/07/16 05/07/16 05/07/16 05/07/16 15:10 19:00 20:00 20:07 Temp 98.0 98.2 98.0 98.2 Pulse 70 62 Resp 20 18 20 B/P 130/75 145/82 Pulse Ox 94 94 95 O2 Delivery Nasal Cannula Nasal Cannula Nasal Cannula Nasal Cannula O2 Flow Rate 2.0 2.0 2.0 2.0 05/07/16 05/07/16 05/07/16 05/08/16 20:34 20:36 23:03 02:50 Temp 97.6 97.9 97.6 97.9 Pulse 64 64 67 63 Resp 18 20 B/P 119/68 119/68 126/69 130/66 Pulse Ox 97 94 O2 Delivery Nasal Cannula Nasal Cannula O2 Flow Rate 2.0 2.0 05/08/16 05/08/16 05/08/16 05/08/16 03:10 04:15 07:33 08:05 Temp 97.6 97.6 Pulse 63 Resp 18 20 16 B/P 137/75 Pulse Ox 94 93 95 O2 Delivery Nasal Cannula Nasal Cannula Nasal Cannula Nasal Cannula O2 Flow Rate 2.0 2.0 2.0 2.0 05/08/16 05/08/16 05/08/16 05/08/16 08:39 10:54 11:32 12:07 Temp 97.5 97.5 Pulse 63 67 Resp 24 B/P 137/75 160/84 Pulse Ox 94 95 O2 Delivery Nasal Cannula Nasal Cannula Nasal Cannula O2 Flow Rate 4.0 2.0 3.0 Intake and Output 05/07/16 05/07/1605/08/17 15:00 23:00 07:00 Intake Total 280 ml 120 ml 620 ml Output Total 400 ml 425 ml Balance 280 ml -280 ml 195 ml SIRISHA LEMONS III DO May 08, 2016 13:55
[2016-05-08 15:13] VITALS: BP 155/80
[2016-05-08] MEDS ORDERED: ALBUTEROL SULFATE 2.5 MG/3 ML NEBU. NEB PRN (17:45)
[2016-05-08] MEDS: PREDNISONE 20 MG TABLET PO SCH (18:19)
[2016-05-08] MEDS: AMOXICILLIN/K CLAV 875/125MG TABLET. PO SCH ×2 (18:19→21:09)
[2016-05-08 19:00] VITALS: BP 134/82
[2016-05-08 22:58] VITALS: BP 138/68
[2016-05-09] MEDS: IV NORMAL SALINE 1000ML BAG 1,000 ML IV SCH ×3 (02:00→20:54)
[2016-05-09 03:00] VITALS: BP 145/85
--- NOTE | 2016-05-09 03:55 | CONS ---
DATE OF CONSULTATION: 05/08/2016 ATTENDING PHYSICIAN: Dr. Kramer. REASON FOR CONSULTATION: The patient is seen in pulmonary consultation at the request of Dr. Peguero for increasing shortness of air. HISTORY OF PRESENT ILLNESS: The patient is a 55-year-old that was admitted with suicide attempt. Today, she was having increasing shortness of air, some wheezing. I was asked to see her in consultation. Chest x-ray was obtained. I reviewed the x-ray. There is some basilar atelectasis and/or infiltrate, right greater than left, which is new. The patient denies productive cough, no hemoptysis. No fever, chills or night sweats. She thinks she is slightly more short of breath than when she first came in. PAST MEDICAL HISTORY: Depression, gastroesophageal reflux and irritable bowel disease. ALLERGIES: TO ____, DIPHENHYDRAMINE, MORPHINE. CURRENT MEDICATIONS: List was reviewed. Please see the MRAD. SOCIAL HISTORY: She ____ smokes. Denies any significant alcohol intake. REVIEW OF SYSTEMS: As indicated above, otherwise, a 10-point system was reviewed and negative. PHYSICAL EXAMINATION: VITAL SIGNS: Stable. O2 saturation currently on 2 liters was 92%. HEENT: Eyes, the sclerae were nonicteric. NECK: Jugular venous distention was not elevated. No lymphadenopathy. CHEST: Full expansion. LUNGS: Adequate airway flow with no wheezes. CARDIOVASCULAR: Regular rate and rhythm with S1, S2. No S3. ABDOMEN: Soft, nontender, nondistended. EXTREMITIES: No clubbing, cyanosis or edema. NEUROLOGIC: The patient was awake, was sleepy, but arousable, in no significant respiratory distress. Arterial blood gas revealed a pH of 7.28, PaCO2 of 59, pO2 of 78. White count was not elevated. Chest x-ray today revealed new atelectasis or infiltrate, right greater than left. IMPRESSION: 1. Abnormal x-ray, possible pneumonia. 2. Acute exacerbation of chronic obstructive pulmonary disease. 3. Suicide attempt. 4. Acute hypercapnic respiratory failure. PLAN: 1. Avoid over sedation. 2. Initiate Augmentin p.o. 3. Nebulized treatments. 4. Oxygen supplementation. I do appreciate the privilege in sharing in the patient's care. SHANTELL PAL MD DR: [place] JOB#: [id number] / [id number]
[2016-05-09 04:51] LABS: BASO # 0.1 x10^3/uL (0.0-0.2); BASO % 1 % (0-3); EOS % 1 % (0-3); HEMATOCRIT 38.5 % (36.0-47.0); LYMPH % 13 % (24-48); MEAN CORPUSCULAR HEMOGLOBIN 32 pg (25-35); MEAN CORPUSCULAR HGB CONC 34 g/dL (31-37); MEAN CORPUSCULAR VOLUME 96 fL (79-100); MONO % 4 % (0-9); NEUT % 80 % (31-73); PLATELET COUNT 113 x10^3/uL (140-400); RED BLOOD COUNT 4.02 x10^6/uL (3.50-5.40); RED CELL DISTRIBUTION WIDTH 16.1 % (11.5-14.5); WHITE BLOOD COUNT 7.4 x10^3/uL (4.0-11.0)
[2016-05-09 05:15] LABS: CALCIUM 7.7 mg/dL (8.5-10.1); CREATININE 0.5 mg/dL (0.6-1.0); GFR 127.6; POTASSIUM 4.2 mmol/L (3.5-5.1)
[2016-05-09 06:53] VITALS: BP 142/84
[2016-05-09] MEDS: ALBUTEROL SULFATE 2.5 MG/3 ML NEBU. NEB SCH ×3 (07:41→20:28)
[2016-05-09] MEDS: PREDNISONE 20 MG TABLET PO SCH (08:10)
[2016-05-09] MEDS: AMOXICILLIN/K CLAV 875/125MG TABLET. PO SCH ×2 (08:10→20:53)
[2016-05-09] MEDS: RIFAXIMIN 550 MG TABLET PO SCH (08:11)
[2016-05-09] MEDS: PANTOPRAZOLE 40 MG TABLET. PO SCH (08:11)
[2016-05-09] MEDS: PROPRANOLOL 10 MG TABLET. PO SCH ×2 (08:11→20:53)
[2016-05-09] MEDS: FOLIC ACID 1 MG TABLET PO SCH (08:11)
[2016-05-09 10:42] VITALS: BP 142/73
--- NOTE | 2016-05-09 11:12 | PDOC ---
PULMONARY PROGRESS NOTES Subjective pt still sleepy no soa Vitals Vital Signs Date Time Temp Pulse Resp B/P Pulse Ox O2 Delivery O2 Flow Rate FiO2 05/09/16 10:42 97.9 65 18 142/73 95 Nasal Cannula 2.0 97.9 General: Lethargic Lungs: Clear Cardiovascular: S1, S2 Abdomen: Soft Extremities: No Edema Skin: Warm Labs Laboratory Tests Test 05/08/16 06:15 05/08/16 12:01 05/09/16 04:27 White Blood Count 6.4x10^3/uL (4.0-11.0) 7.4x10^3/uL (4.0-11.0) Red Blood Count 3.78x10^6/uL (3.50-5.40) 4.02x10^6/uL (3.50-5.40) Hemoglobin 12.1g/dL (12.0-15.5) 13.0g/dL (12.0-15.5) Hematocrit 36.4% (36.0-47.0) 38.5% (36.0-47.0) Mean Corpuscular Volume 96fL (79-100) 96fL (79-100) Mean Corpuscular Hemoglobin 32pg (25-35) 32pg (25-35) Mean Corpuscular Hemoglobin Concent 33g/dL (31-37) 34g/dL (31-37) Red Cell Distribution Width 16.2% (11.5-14.5) 16.1% (11.5-14.5) Platelet Count 88x10^3/uL (140-400) 113x10^3/uL (140-400) Neutrophils (%) (Auto) 63% (31-73) 80% (31-73) Lymphocytes (%) (Auto) 20% (24-48) 13% (24-48) Monocytes (%) (Auto) 9% (0-9) 4% (0-9) Eosinophils (%) (Auto) 7% (0-3) 1% (0-3) Basophils (%) (Auto) 1% (0-3) 1% (0-3) Neutrophils # (Auto) 4.0x10^3uL (1.8-7.7) 6.0x10^3uL (1.8-7.7) Lymphocytes # (Auto) 1.3x10^3/uL (1.0-4.8) 1.0x10^3/uL (1.0-4.8) Monocytes # (Auto) 0.6x10^3/uL (0.0-1.1) 0.3x10^3/uL (0.0-1.1) Eosinophils # (Auto) 0.5x10^3/uL (0.0-0.7) 0.1x10^3/uL (0.0-0.7) Basophils # (Auto) 0.1x10^3/uL (0.0-0.2) 0.1x10^3/uL (0.0-0.2) Sodium Level 141mmol/L (136-145) 142mmol/L (136-145) Potassium Level 4.1mmol/L (3.5-5.1) 4.2mmol/L (3.5-5.1) Chloride Level 111mmol/L (98-107) 110mmol/L (98-107) Carbon Dioxide Level 28mmol/L (21-32) 29mmol/L (21-32) Anion Gap 2 (6-14) 3 (6-14) Blood Urea Nitrogen 9mg/dL (7-20) 9mg/dL (7-20) Creatinine 0.5mg/dL (0.6-1.0) 0.5mg/dL (0.6-1.0) Estimated GFR (Cockcroft-Gault) 127.6 127.6 Glucose Level 115mg/dL (70-99) 152mg/dL (70-99) Calcium Level 7.4mg/dL (8.5-10.1) 7.7mg/dL (8.5-10.1) O2 Saturation 95% (92-99) Arterial Blood pH 7.28 (7.35-7.45) Arterial Blood pCO2 at Patient Temp 59mmHg (35-46) Arterial Blood pO2 at Patient Temp 78mmHg (75-108) Arterial Blood HCO3 27mmol/L (21-28) Arterial Blood Base Excess -1mmol/L (-3-3) FiO2 32 Laboratory Tests Test 05/08/16 12:01 3/16/17 04:27 O2 Saturation 95% (92-99) Arterial Blood pH 7.28 (7.35-7.45) Arterial Blood pCO2 at Patient Temp 59mmHg (35-46) Arterial Blood pO2 at Patient Temp 78mmHg (75-108) Arterial Blood HCO3 27mmol/L (21-28) Arterial Blood Base Excess -1mmol/L (-3-3) FiO2 32 White Blood Count 7.4x10^3/uL (4.0-11.0) Red Blood Count 4.02x10^6/uL (3.50-5.40) Hemoglobin 13.0g/dL (12.0-15.5) Hematocrit 38.5% (36.0-47.0) Mean Corpuscular Volume 96fL (79-100) Mean Corpuscular Hemoglobin 32pg (25-35) Mean Corpuscular Hemoglobin Concent 34g/dL (31-37) Red Cell Distribution Width 16.1% (11.5-14.5) Platelet Count 113x10^3/uL (140-400) Neutrophils (%) (Auto) 80% (31-73) Lymphocytes (%) (Auto) 13% (24-48) Monocytes (%) (Auto) 4% (0-9) Eosinophils (%) (Auto) 1% (0-3) Basophils (%) (Auto) 1% (0-3) Neutrophils # (Auto) 6.0x10^3uL (1.8-7.7) Lymphocytes # (Auto) 1.0x10^3/uL (1.0-4.8) Monocytes # (Auto) 0.3x10^3/uL (0.0-1.1) Eosinophils # (Auto) 0.1x10^3/uL (0.0-0.7) Basophils # (Auto) 0.1x10^3/uL (0.0-0.2) Sodium Level 142mmol/L (136-145) Potassium Level 4.2mmol/L (3.5-5.1) Chloride Level 110mmol/L (98-107) Carbon Dioxide Level 29mmol/L (21-32) Anion Gap 3 (6-14) Blood Urea Nitrogen 9mg/dL (7-20) Creatinine 0.5mg/dL (0.6-1.0) Estimated GFR (Cockcroft-Gault) 127.6 Glucose Level 152mg/dL (70-99) Calcium Level 7.7mg/dL (8.5-10.1) Medications Active Scripts Medications Dose Route/Sig Days Date Category Proair Hfa Inhaler (Albuterol Sulfate) 8.5 Gm Hfa.aer.ad 1 Puff INH 05/05/16 Reported Folic Acid 1 Mg Tablet 1 Mg PO 05/05/16 Reported Spironolactone 50 Mg Tablet 50 Mg PO 05/05/16 Reported Propranolol Hcl 10 Mg Tablet 10 Mg PO 05/05/16 Reported Lansoprazole 30 Mg Capsule.dr 30 Mg PO 05/05/16 Reported Xifaxan (Rifaximin) 550 Mg Tablet 1 Tab PO 05/05/16 Reported Ciprofloxacin Hcl 500 Mg Tablet 1 Tab PO 05/05/16 Reported Ondansetron Odt (Ondansetron) 4 Mg Tab.rapdis 1 Tab PO 05/05/16 Reported Impression . 1. Abnormal x-ray, possible pneumonia. 2. Acute exacerbation of chronic obstructive pulmonary disease. 3. Suicide attempt. 4. Acute hypercapnic respiratory failure. Plan . ABG noted needs more time for drugs to wear off. 1. Avoid over sedation. 2. Initiate Augmentin p.o. 3. Nebulized treatments. 4. Oxygen supplementation. SHANTELL PAL MD May 09, 2016 11:12
--- NOTE | 2016-05-09 13:18 | PDOC ---
PROGRESS NOTES Chief Complaint Chief Complaint Intentional drug overdose Suicide attempt depression History of Present Illness History of Present Illness Patient sitting up in chair when evaluated this AM without new complaints. Overall, pt was more alert and coherent. Pt reports that she does not feel suicidal, and didn't feel suicidal at the time of the ingestion of seroquel. She state that had she wanted to kill herself, she would have finished off the bottle instead of just taking a couple pills. It remains unclear what her motives were when she overdosed. She does admit to a longstanding depression that has been worsened with the of two daughters last fall; both suicides. She reports that the seroquel was prescribed for the treatment of her depression. Vitals Vitals Vital Signs Date Time Temp Pulse Resp B/P Pulse Ox O2 Delivery O2 Flow Rate FiO2 05/09/16 10:42 97.9 65 18 142/73 95 Nasal Cannula 2.0 97.9 Physical Exam General: Alert, Cooperative, No acute distress Heart: Regular rate, No murmurs Lungs: Wheezing Abdomen: Soft, No tenderness Extremities: No cyanosis, No edema Skin: No breakdown Labs LABS Laboratory Tests Test 05/09/16 04:27 White Blood Count 7.4x10^3/uL (4.0-11.0) Red Blood Count 4.02x10^6/uL (3.50-5.40) Hemoglobin 13.0g/dL (12.0-15.5) Hematocrit 38.5% (36.0-47.0) Mean Corpuscular Volume 96fL (79-100) Mean Corpuscular Hemoglobin 32pg (25-35) Mean Corpuscular Hemoglobin Concent 34g/dL (31-37) Red Cell Distribution Width 16.1% (11.5-14.5) Platelet Count 113x10^3/uL (140-400) Neutrophils (%) (Auto) 80% (31-73) Lymphocytes (%) (Auto) 13% (24-48) Monocytes (%) (Auto) 4% (0-9) Eosinophils (%) (Auto) 1% (0-3) Basophils (%) (Auto) 1% (0-3) Neutrophils # (Auto) 6.0x10^3uL (1.8-7.7) Lymphocytes # (Auto) 1.0x10^3/uL (1.0-4.8) Monocytes # (Auto) 0.3x10^3/uL (0.0-1.1) Eosinophils # (Auto) 0.1x10^3/uL (0.0-0.7) Basophils # (Auto) 0.1x10^3/uL (0.0-0.2) Sodium Level 142mmol/L (136-145) Potassium Level 4.2mmol/L (3.5-5.1) Chloride Level 110mmol/L (98-107) Carbon Dioxide Level 29mmol/L (21-32) Anion Gap 3 (6-14) Blood Urea Nitrogen 9mg/dL (7-20) Creatinine 0.5mg/dL (0.6-1.0) Estimated GFR (Cockcroft-Gault) 127.6 Glucose Level 152mg/dL (70-99) Calcium Level 7.7mg/dL (8.5-10.1) Review of Systems Review of Systems denies fever, chills denies chest pain denies suicidality + wheeze, shortness of air Assessment and Plan Assessmemt and Plan ASSESSMENT: 1. drug overdose: Seroquel ingestion w/o cardiac impairment. 2. sedation: drug induced. 3. suicide attempt 4. depression PLAN: - psych placement pending; but pt states she is not suicidal at this time - CXR showing new basilar atelectasis or infiltrate R worse than L. compared to 05/05 - cont antibiotics - cont tramadol - cont IVF, NS at 100ml/hr - cont 1:1 monitoring - cont to monitor daily labs - PT/OT - appreciate subspecialist input Problems: Comment Review of Relevant I have reviewed the following items tamar (where applicable) has been applied. Labs Laboratory Tests Test 05/08/16 06:15 05/08/16 12:01 05/09/16 04:27 White Blood Count 6.4x10^3/uL (4.0-11.0) 7.4x10^3/uL (4.0-11.0) Red Blood Count 3.78x10^6/uL (3.50-5.40) 4.02x10^6/uL (3.50-5.40) Hemoglobin 12.1g/dL (12.0-15.5) 13.0g/dL (12.0-15.5) Hematocrit 36.4% (36.0-47.0) 38.5% (36.0-47.0) Mean Corpuscular Volume 96fL (79-100) 96fL (79-100) Mean Corpuscular Hemoglobin 32pg (25-35) 32pg (25-35) Mean Corpuscular Hemoglobin Concent 33g/dL (31-37) 34g/dL (31-37) Red Cell Distribution Width 16.2% (11.5-14.5) 16.1% (11.5-14.5) Platelet Count 88x10^3/uL (140-400) 113x10^3/uL (140-400) Neutrophils (%) (Auto) 63% (31-73) 80% (31-73) Lymphocytes (%) (Auto) 20% (24-48) 13% (24-48) Monocytes (%) (Auto) 9% (0-9) 4% (0-9) Eosinophils (%) (Auto) 7% (0-3) 1% (0-3) Basophils (%) (Auto) 1% (0-3) 1% (0-3) Neutrophils # (Auto) 4.0x10^3uL (1.8-7.7) 6.0x10^3uL (1.8-7.7) Lymphocytes # (Auto) 1.3x10^3/uL (1.0-4.8) 1.0x10^3/uL (1.0-4.8) Monocytes # (Auto) 0.6x10^3/uL (0.0-1.1) 0.3x10^3/uL (0.0-1.1) Eosinophils # (Auto) 0.5x10^3/uL (0.0-0.7) 0.1x10^3/uL (0.0-0.7) Basophils # (Auto) 0.1x10^3/uL (0.0-0.2) 0.1x10^3/uL (0.0-0.2) Sodium Level 141mmol/L (136-145) 142mmol/L (136-145) Potassium Level 4.1mmol/L (3.5-5.1) 4.2mmol/L (3.5-5.1) Chloride Level 111mmol/L (98-107) 110mmol/L (98-107) Carbon Dioxide Level 28mmol/L (21-32) 29mmol/L (21-32) Anion Gap 2 (6-14) 3 (6-14) Blood Urea Nitrogen 9mg/dL (7-20) 9mg/dL (7-20) Creatinine 0.5mg/dL (0.6-1.0) 0.5mg/dL (0.6-1.0) Estimated GFR (Cockcroft-Gault) 127.6 127.6 Glucose Level 115mg/dL (70-99) 152mg/dL (70-99) Calcium Level 7.4mg/dL (8.5-10.1) 7.7mg/dL (8.5-10.1) O2 Saturation 95% (92-99) Arterial Blood pH 7.28 (7.35-7.45) Arterial Blood pCO2 at Patient Temp 59mmHg (35-46) Arterial Blood pO2 at Patient Temp 78mmHg (75-108) Arterial Blood HCO3 27mmol/L (21-28) Arterial Blood Base Excess -1mmol/L (-3-3) FiO2 32 Laboratory Tests Test 05/09/16 04:27 White Blood Count 7.4x10^3/uL (4.0-11.0) Red Blood Count 4.02x10^6/uL (3.50-5.40) Hemoglobin 13.0g/dL (12.0-15.5) Hematocrit 38.5% (36.0-47.0) Mean Corpuscular Volume 96fL (79-100) Mean Corpuscular Hemoglobin 32pg (25-35) Mean Corpuscular Hemoglobin Concent 34g/dL (31-37) Red Cell Distribution Width 16.1% (11.5-14.5) Platelet Count 113x10^3/uL (140-400) Neutrophils (%) (Auto) 80% (31-73) Lymphocytes (%) (Auto) 13% (24-48) Monocytes (%) (Auto) 4% (0-9) Eosinophils (%) (Auto) 1% (0-3) Basophils (%) (Auto) 1% (0-3) Neutrophils # (Auto) 6.0x10^3uL (1.8-7.7) Lymphocytes # (Auto) 1.0x10^3/uL (1.0-4.8) Monocytes # (Auto) 0.3x10^3/uL (0.0-1.1) Eosinophils # (Auto) 0.1x10^3/uL (0.0-0.7) Basophils # (Auto) 0.1x10^3/uL (0.0-0.2) Sodium Level 142mmol/L (136-145) Potassium Level 4.2mmol/L (3.5-5.1) Chloride Level 110mmol/L (98-107) Carbon Dioxide Level 29mmol/L (21-32) Anion Gap 3 (6-14) Blood Urea Nitrogen 9mg/dL (7-20) Creatinine 0.5mg/dL (0.6-1.0) Estimated GFR (Cockcroft-Gault) 127.6 Glucose Level 152mg/dL (70-99) Calcium Level 7.7mg/dL (8.5-10.1) Medications Current Medications Ondansetron HCl (Zofran) 4 mg PRN Q8HRS PRN IV NAUSEA/VOMITING; Start 05/05/16 at 01:30; Stop 05/06/16 at 01:29; Status DC Acetaminophen (Tylenol) 650 mg PRN Q4HRS PRN PO FEVER Last administered on 05/05 21:30; Start 05/05/16 at 01:30; Stop 05/06/16 at 01:29; Status DC Lorazepam 1 mg 1 mg 1X ONCE IV Last administered on 05/05/16 01:45; Start 02/09 at 01:45; Stop 05/05/16 at 03:23; Status DC Sodium Chloride (Iv Sodium Chloride 0.9% 1000ml Bag) 1,000 ml @ 100 mls/hr Q10H IV Last administered on 05/08/16 11:33; Start 05/05/16 at 08:00 Folic Acid (Folic Acid) 1 mg DAILY PO Last administered on 05/09/16 08:11; Start 05/05/16 at 09:00 Propranolol HCl (Inderal) 10 mg BID PO Last administered on 05/09/16 08:11; Start 05/05/16 at 09:00 Rifaximin (Xifaxan) 550 mg DAILY PO Last administered on 05/09/16 08:11; Start 05/05/16 at 10:00 Pantoprazole Sodium (Protonix) 40 mg DAILYAC PO Last administered on 05/09/16 08:11; Start 05/05/16 at 10:00 Tramadol HCl (Ultram) 50 mg PRN Q6HRS PRN PO PAIN Last administered on 11:32; Start 05/07/16 at 02:15 Albuterol Sulfate (Ventolin Neb Soln) 2.5 mg PRN QID PRN NEB COUGH Last administered on 05/08/16 14:51; Start 05/07/16 at 03:15; Stop 05/08/16 at 17:48 ; Status DC Albuterol/ Ipratropium (Duoneb) 3 ml STK-MED ONCE .ROUTE ; Start 05/07/16 at 03: 41; Stop 05/07/16 at 03:51; Status DC Amoxicillin/ Clavulanate Potassium (Augmentin 875/ 125mg) 1 tab BID PO Last administered on 05/09/16 08:10; Start 05/08/16 at 18:30 Albuterol Sulfate (Ventolin Neb Soln) 2.5 mg QID NEB Last administered on 07:41; Start 05/08/16 at 21:00 Albuterol Sulfate (Ventolin Neb Soln) 2.5 mg PRN Q2HR PRN NEB DYSPNEA; Start at 17:45 Prednisone (Prednisone) 20 mg DAILY PO Last administered on 05/09/16 08:10; Start 05/08/16 at 18:30 Active Scripts Active Reported Proair Hfa Inhaler (Albuterol Sulfate) 8.5 Gm Hfa.aer.ad 1 Puff INH Folic Acid 1 Mg Tablet 1 Mg PO Spironolactone 50 Mg Tablet 50 Mg PO Propranolol Hcl 10 Mg Tablet 10 Mg PO Lansoprazole 30 Mg Capsule.dr 30 Mg PO Xifaxan (Rifaximin) 550 Mg Tablet 1 Tab PO Ciprofloxacin Hcl 500 Mg Tablet 1 Tab PO Ondansetron Odt (Ondansetron) 4 Mg Tab.rapdis 1 Tab PO Vitals/I & O Vital Sign - Last 24 Hours 05/08/16 05/08/16 05/08/16 05/08/16 14:54 15:13 19:00 20:15 Temp 97.4 97.7 97.4 97.7 Pulse 64 63 Resp 22 19 B/P 155/80 134/82 Pulse Ox 90 95 O2 Delivery Nasal Cannula Nasal Cannula Nasal Cannula Nasal Cannula O2 Flow Rate 2.0 2.0 2.0 2.0 05/08/16 05/08/16 05/09/16 05/09/16 21:10 22:58 03:00 06:53 Temp 98.2 98.0 98.0 98.2 98.0 98.0 Pulse 69 71 69 70 Resp 20 18 18 B/P 148/87 138/68 145/85 142/84 Pulse Ox 94 95 95 O2 Delivery Nasal Cannula Nasal Cannula Nasal Cannula O2 Flow Rate 2.0 2.0 2.0 05/09/16 05/09/16 05/09/16 05/09/16 07:42 08:00 08:11 10:42 Temp 97.9 97.9 Pulse 70 65 Resp 18 B/P 142/84 142/73 Pulse Ox 96 95 O2 Delivery Nasal Cannula Nasal Cannula Nasal Cannula O2 Flow Rate 2.0 2.0 2.0 Intake and Output 05/08/16 05/08/16 05/09/16 15:00 23:00 07:00 Intake Total 520 ml Output Total 500 ml 300 ml Balance 20 ml -300 ml SIRISHA LEMONS III DO May 09, 2016 13:18
[2016-05-09] MEDS ORDERED: ONDANSETRON PF 4 MG/2 ML VIAL. IV PRN (13:45)
[2016-05-09 14:47] VITALS: BP 145/80
[2016-05-09 19:00] VITALS: BP 137/67
[2016-05-09 23:00] VITALS: BP 149/69
[2016-05-10 03:00] VITALS: BP 149/72
[2016-05-10 06:58] LABS: BASO % 1 % (0-3); EOS % 9 % (0-3); HEMATOCRIT 38.2 % (36.0-47.0); HEMOGLOBIN 12.9 g/dL (12.0-15.5); LYMPH % 28 % (24-48); MEAN CORPUSCULAR HEMOGLOBIN 32 pg (25-35); MEAN CORPUSCULAR HGB CONC 34 g/dL (31-37); MEAN CORPUSCULAR VOLUME 95 fL (79-100); MONO % 7 % (0-9); NEUT % 56 % (31-73); PLATELET COUNT 109 x10^3/uL (140-400); RED BLOOD COUNT 4.02 x10^6/uL (3.50-5.40); RED CELL DISTRIBUTION WIDTH 16.5 % (11.5-14.5); WHITE BLOOD COUNT 7.2 x10^3/uL (4.0-11.0)
[2016-05-10 07:06] LABS: CALCIUM 7.9 mg/dL (8.5-10.1); CREATININE 0.5 mg/dL (0.6-1.0); GFR 127.6; POTASSIUM 3.7 mmol/L (3.5-5.1)
[2016-05-10 07:17] VITALS: BP 137/71
[2016-05-10] MEDS: IV NORMAL SALINE 1000ML BAG 1,000 ML IV SCH ×2 (08:00→18:00)
[2016-05-10] MEDS: PROPRANOLOL 10 MG TABLET. PO SCH ×2 (08:23→21:04)
[2016-05-10] MEDS: PANTOPRAZOLE 40 MG TABLET. PO SCH (08:23)
[2016-05-10] MEDS: RIFAXIMIN 550 MG TABLET PO SCH (08:24)
[2016-05-10] MEDS: PREDNISONE 20 MG TABLET PO SCH (08:24)
[2016-05-10] MEDS: AMOXICILLIN/K CLAV 875/125MG TABLET. PO SCH ×2 (08:24→21:03)
[2016-05-10] MEDS: FOLIC ACID 1 MG TABLET PO SCH (08:24)
--- NOTE | 2016-05-10 10:36 | PDOC ---
PULMONARY PROGRESS NOTES Subjective pt still sleepy, has cough, sob, no pain, is tired Vitals Vital Signs Date Time Temp Pulse Resp B/P Pulse Ox O2 Delivery O2 Flow Rate FiO2 05/10/16 08:23 64 137/71 05/10/16 07:41 98 Nasal Cannula 2.0 05/10/16 07:17 97.9 18 97.9 Comments ros as mentioned as above other sys otherwise neg General: Lethargic HEENT: Other (nc at perrl ) Lungs: Clear Cardiovascular: S1, S2 Abdomen: Soft Extremities: No Edema Skin: Warm Labs Laboratory Tests Test 05/08/16 12:01 05/09/16 04:27 05/10/16 06:12 O2 Saturation 95% (92-99) Arterial Blood pH 7.28 (7.35-7.45) Arterial Blood pCO2 at Patient Temp 59mmHg (35-46) Arterial Blood pO2 at Patient Temp 78mmHg (75-108) Arterial Blood HCO3 27mmol/L (21-28) Arterial Blood Base Excess -1mmol/L (-3-3) FiO2 32 White Blood Count 7.4x10^3/uL (4.0-11.0) 7.2x10^3/uL (4.0-11.0) Red Blood Count 4.02x10^6/uL (3.50-5.40) 4.02x10^6/uL (3.50-5.40) Hemoglobin 13.0g/dL (12.0-15.5) 12.9g/dL (12.0-15.5) Hematocrit 38.5% (36.0-47.0) 38.2% (36.0-47.0) Mean Corpuscular Volume 96fL (79-100) 95fL (79-100) Mean Corpuscular Hemoglobin 32pg (25-35) 32pg (25-35) Mean Corpuscular Hemoglobin Concent 34g/dL (31-37) 34g/dL (31-37) Red Cell Distribution Width 16.1% (11.5-14.5) 16.5% (11.5-14.5) Platelet Count 113x10^3/uL (140-400) 109x10^3/uL (140-400) Neutrophils (%) (Auto) 80% (31-73) 56% (31-73) Lymphocytes (%) (Auto) 13% (24-48) 28% (24-48) Monocytes (%) (Auto) 4% (0-9) 7% (0-9) Eosinophils (%) (Auto) 1% (0-3) 9% (0-3) Basophils (%) (Auto) 1% (0-3) 1% (0-3) Neutrophils # (Auto) 6.0x10^3uL (1.8-7.7) 4.0x10^3uL (1.8-7.7) Lymphocytes # (Auto) 1.0x10^3/uL (1.0-4.8) 2.0x10^3/uL (1.0-4.8) Monocytes # (Auto) 0.3x10^3/uL (0.0-1.1) 0.5x10^3/uL (0.0-1.1) Eosinophils # (Auto) 0.1x10^3/uL (0.0-0.7) 0.6x10^3/uL (0.0-0.7) Basophils # (Auto) 0.1x10^3/uL (0.0-0.2) 0.0x10^3/uL (0.0-0.2) Sodium Level 142mmol/L (136-145) 143mmol/L (136-145) Potassium Level 4.2mmol/L (3.5-5.1) 3.7mmol/L (3.5-5.1) Chloride Level 110mmol/L (98-107) 110mmol/L (98-107) Carbon Dioxide Level 29mmol/L (21-32) 32mmol/L (21-32) Anion Gap 3 (6-14) 1 (6-14) Blood Urea Nitrogen 9mg/dL (7-20) 11mg/dL (7-20) Creatinine 0.5mg/dL (0.6-1.0) 0.5mg/dL (0.6-1.0) Estimated GFR (Cockcroft-Gault) 127.6 127.6 Glucose Level 152mg/dL (70-99) 98mg/dL (70-99) Calcium Level 7.7mg/dL (8.5-10.1) 7.9mg/dL (8.5-10.1) Laboratory Tests Test 05/10/16 06:12 White Blood Count 7.2x10^3/uL (4.0-11.0) Red Blood Count 4.02x10^6/uL (3.50-5.40) Hemoglobin 12.9g/dL (12.0-15.5) Hematocrit 38.2% (36.0-47.0) Mean Corpuscular Volume 95fL (79-100) Mean Corpuscular Hemoglobin 32pg (25-35) Mean Corpuscular Hemoglobin Concent 34g/dL (31-37) Red Cell Distribution Width 16.5% (11.5-14.5) Platelet Count 109x10^3/uL (140-400) Neutrophils (%) (Auto) 56% (31-73) Lymphocytes (%) (Auto) 28% (24-48) Monocytes (%) (Auto) 7% (0-9) Eosinophils (%) (Auto) 9% (0-3) Basophils (%) (Auto) 1% (0-3) Neutrophils # (Auto) 4.0x10^3uL (1.8-7.7) Lymphocytes # (Auto) 2.0x10^3/uL (1.0-4.8) Monocytes # (Auto) 0.5x10^3/uL (0.0-1.1) Eosinophils # (Auto) 0.6x10^3/uL (0.0-0.7) Basophils # (Auto) 0.0x10^3/uL (0.0-0.2) Sodium Level 143mmol/L (136-145) Potassium Level 3.7mmol/L (3.5-5.1) Chloride Level 110mmol/L (98-107) Carbon Dioxide Level 32mmol/L (21-32) Anion Gap 1 (6-14) Blood Urea Nitrogen 11mg/dL (7-20) Creatinine 0.5mg/dL (0.6-1.0) Estimated GFR (Cockcroft-Gault) 127.6 Glucose Level 98mg/dL (70-99) Calcium Level 7.9mg/dL (8.5-10.1) Medications Active Scripts Medications Dose Route/Sig Days Date Category Proair Hfa Inhaler (Albuterol Sulfate) 8.5 Gm Hfa.aer.ad 1 Puff INH 05/05/16 Reported Folic Acid 1 Mg Tablet 1 Mg PO 05/05/16 Reported Spironolactone 50 Mg Tablet 50 Mg PO 05/05/16 Reported Propranolol Hcl 10 Mg Tablet 10 Mg PO 05/05/16 Reported Lansoprazole 30 Mg Capsule.dr 30 Mg PO 05/05/16 Reported Xifaxan (Rifaximin) 550 Mg Tablet 1 Tab PO 05/05/16 Reported Ciprofloxacin Hcl 500 Mg Tablet 1 Tab PO 05/05/16 Reported Ondansetron Odt (Ondansetron) 4 Mg Tab.rapdis 1 Tab PO 05/05/16 Reported Comments cxr reviewed. Impression . 1. Abnormal x-ray, possible pneumonia. 2. Acute exacerbation of chronic obstructive pulmonary disease. 3. Suicide attempt. 4. Acute hypercapnic respiratory failure. Plan . ABG noted needs more time for drugs to wear off. 1. Avoid over sedation. 2. Initiate Augmentin p.o. 3. Nebulized treatments. 4. Oxygen supplementation. 5. elevate hob discussed w pt and rn MIKO MOROCHO MD May 10, 2016 10:36
--- NOTE | 2016-05-10 11:04 | PDOC ---
PROGRESS NOTES Chief Complaint Chief Complaint Intentional drug overdose Suicide attempt depression History of Present Illness History of Present Illness Patient sleeping and difficult to arouse this AM. Just yesterday she was up in the chair and conversing. However, since yesterday afternoon the pt has been increasingly sleepy and lethargic. Pt only briefly able to answer questions in one word answers. 1:1 sitter reports that pt was a bit more talkative this AM while eating breakfast. Vitals Vitals Vital Signs Date Time Temp Pulse Resp B/P Pulse Ox O2 Delivery O2 Flow Rate FiO2 05/10/16 08:23 64 137/71 05/10/16 07:41 98 Nasal Cannula 2.0 05/10/16 07:17 97.9 18 97.9 Physical Exam General: No acute distress, Other (sleepy, decreased alertness) Heart: Regular rate, No murmurs Lungs: Clear Abdomen: Soft, No tenderness Extremities: No cyanosis, No edema Skin: No breakdown Labs LABS Laboratory Tests Test 05/10/16 06:12 White Blood Count 7.2x10^3/uL (4.0-11.0) Red Blood Count 4.02x10^6/uL (3.50-5.40) Hemoglobin 12.9g/dL (12.0-15.5) Hematocrit 38.2% (36.0-47.0) Mean Corpuscular Volume 95fL (79-100) Mean Corpuscular Hemoglobin 32pg (25-35) Mean Corpuscular Hemoglobin Concent 34g/dL (31-37) Red Cell Distribution Width 16.5% (11.5-14.5) Platelet Count 109x10^3/uL (140-400) Neutrophils (%) (Auto) 56% (31-73) Lymphocytes (%) (Auto) 28% (24-48) Monocytes (%) (Auto) 7% (0-9) Eosinophils (%) (Auto) 9% (0-3) Basophils (%) (Auto) 1% (0-3) Neutrophils # (Auto) 4.0x10^3uL (1.8-7.7) Lymphocytes # (Auto) 2.0x10^3/uL (1.0-4.8) Monocytes # (Auto) 0.5x10^3/uL (0.0-1.1) Eosinophils # (Auto) 0.6x10^3/uL (0.0-0.7) Basophils # (Auto) 0.0x10^3/uL (0.0-0.2) Sodium Level 143mmol/L (136-145) Potassium Level 3.7mmol/L (3.5-5.1) Chloride Level 110mmol/L (98-107) Carbon Dioxide Level 32mmol/L (21-32) Anion Gap 1 (6-14) Blood Urea Nitrogen 11mg/dL (7-20) Creatinine 0.5mg/dL (0.6-1.0) Estimated GFR (Cockcroft-Gault) 127.6 Glucose Level 98mg/dL (70-99) Calcium Level 7.9mg/dL (8.5-10.1) Review of Systems Review of Systems mostly unobtainable due to decreased alertness + wheeze, shortness of air Assessment and Plan Assessmemt and Plan ASSESSMENT: 1. drug overdose: Seroquel ingestion w/o cardiac impairment. 2. sedation: drug induced. 3. suicide attempt 4. depression PLAN: - CT head and Neurology consult for altered consciousness - check ammonia level - SW coordinating psych placement - cont antibiotics - cont tramadol - cont IVF, NS at 100ml/hr - cont 1:1 monitoring - cont to monitor daily labs - appreciate subspecialist input Problems: Comment Review of Relevant I have reviewed the following items tamar (where applicable) has been applied. Labs Laboratory Tests Test 05/08/16 12:01 05/09/16 04:27 05/10/16 06:12 O2 Saturation 95% (92-99) Arterial Blood pH 7.28 (7.35-7.45) Arterial Blood pCO2 at Patient Temp 59mmHg (35-46) Arterial Blood pO2 at Patient Temp 78mmHg (75-108) Arterial Blood HCO3 27mmol/L (21-28) Arterial Blood Base Excess -1mmol/L (-3-3) FiO2 32 White Blood Count 7.4x10^3/uL (4.0-11.0) 7.2x10^3/uL (4.0-11.0) Red Blood Count 4.02x10^6/uL (3.50-5.40) 4.02x10^6/uL (3.50-5.40) Hemoglobin 13.0g/dL (12.0-15.5) 12.9g/dL (12.0-15.5) Hematocrit 38.5% (36.0-47.0) 38.2% (36.0-47.0) Mean Corpuscular Volume 96fL (79-100) 95fL (79-100) Mean Corpuscular Hemoglobin 32pg (25-35) 32pg (25-35) Mean Corpuscular Hemoglobin Concent 34g/dL (31-37) 34g/dL (31-37) Red Cell Distribution Width 16.1% (11.5-14.5) 16.5% (11.5-14.5) Platelet Count 113x10^3/uL (140-400) 109x10^3/uL (140-400) Neutrophils (%) (Auto) 80% (31-73) 56% (31-73) Lymphocytes (%) (Auto) 13% (24-48) 28% (24-48) Monocytes (%) (Auto) 4% (0-9) 7% (0-9) Eosinophils (%) (Auto) 1% (0-3) 9% (0-3) Basophils (%) (Auto) 1% (0-3) 1% (0-3) Neutrophils # (Auto) 6.0x10^3uL (1.8-7.7) 4.0x10^3uL (1.8-7.7) Lymphocytes # (Auto) 1.0x10^3/uL (1.0-4.8) 2.0x10^3/uL (1.0-4.8) Monocytes # (Auto) 0.3x10^3/uL (0.0-1.1) 0.5x10^3/uL (0.0-1.1) Eosinophils # (Auto) 0.1x10^3/uL (0.0-0.7) 0.6x10^3/uL (0.0-0.7) Basophils # (Auto) 0.1x10^3/uL (0.0-0.2) 0.0x10^3/uL (0.0-0.2) Sodium Level 142mmol/L (136-145) 143mmol/L (136-145) Potassium Level 4.2mmol/L (3.5-5.1) 3.7mmol/L (3.5-5.1) Chloride Level 110mmol/L (98-107) 110mmol/L (98-107) Carbon Dioxide Level 29mmol/L (21-32) 32mmol/L (21-32) Anion Gap 3 (6-14) 1 (6-14) Blood Urea Nitrogen 9mg/dL (7-20) 11mg/dL (7-20) Creatinine 0.5mg/dL (0.6-1.0) 0.5mg/dL (0.6-1.0) Estimated GFR (Cockcroft-Gault) 127.6 127.6 Glucose Level 152mg/dL (70-99) 98mg/dL (70-99) Calcium Level 7.7mg/dL (8.5-10.1) 7.9mg/dL (8.5-10.1) Laboratory Tests Test 05/10/16 06:12 White Blood Count 7.2x10^3/uL (4.0-11.0) Red Blood Count 4.02x10^6/uL (3.50-5.40) Hemoglobin 12.9g/dL (12.0-15.5) Hematocrit 38.2% (36.0-47.0) Mean Corpuscular Volume 95fL (79-100) Mean Corpuscular Hemoglobin 32pg (25-35) Mean Corpuscular Hemoglobin Concent 34g/dL (31-37) Red Cell Distribution Width 16.5% (11.5-14.5) Platelet Count 109x10^3/uL (140-400) Neutrophils (%) (Auto) 56% (31-73) Lymphocytes (%) (Auto) 28% (24-48) Monocytes (%) (Auto) 7% (0-9) Eosinophils (%) (Auto) 9% (0-3) Basophils (%) (Auto) 1% (0-3) Neutrophils # (Auto) 4.0x10^3uL (1.8-7.7) Lymphocytes # (Auto) 2.0x10^3/uL (1.0-4.8) Monocytes # (Auto) 0.5x10^3/uL (0.0-1.1) Eosinophils # (Auto) 0.6x10^3/uL (0.0-0.7) Basophils # (Auto) 0.0x10^3/uL (0.0-0.2) Sodium Level 143mmol/L (136-145) Potassium Level 3.7mmol/L (3.5-5.1) Chloride Level 110mmol/L (98-107) Carbon Dioxide Level 32mmol/L (21-32) Anion Gap 1 (6-14) Blood Urea Nitrogen 11mg/dL (7-20) Creatinine 0.5mg/dL (0.6-1.0) Estimated GFR (Cockcroft-Gault) 127.6 Glucose Level 98mg/dL (70-99) Calcium Level 7.9mg/dL (8.5-10.1) Medications Current Medications Ondansetron HCl (Zofran) 4 mg PRN Q8HRS PRN IV NAUSEA/VOMITING; Start 05/05/16 at 01:30; Stop 05/06/16 at 01:29; Status DC Acetaminophen (Tylenol) 650 mg PRN Q4HRS PRN PO FEVER Last administered on 05/05 21:30; Start 05/05/16 at 01:30; Stop 05/06/16 at 01:29; Status DC Lorazepam 1 mg 1 mg 1X ONCE IV Last administered on 05/05/16 01:45; Start 02/09 at 01:45; Stop 05/05/16 at 03:23; Status DC Sodium Chloride (Iv Sodium Chloride 0.9% 1000ml Bag) 1,000 ml @ 100 mls/hr Q10H IV Last administered on 05/08/16 11:33; Start 05/05/16 at 08:00 Folic Acid (Folic Acid) 1 mg DAILY PO Last administered on 05/10/16 08:24; Start 05/05/16 at 09:00 Propranolol HCl (Inderal) 10 mg BID PO Last administered on 05/10/16 08:23; Start 05/05/16 at 09:00 Rifaximin (Xifaxan) 550 mg DAILY PO Last administered on 05/10/16 08:24; Start 05/05/16 at 10:00 Pantoprazole Sodium (Protonix) 40 mg DAILYAC PO Last administered on 05/10/16 08:23; Start 05/05/16 at 10:00 Tramadol HCl (Ultram) 50 mg PRN Q6HRS PRN PO PAIN Last administered on 11:32; Start 05/07/16 at 02:15 Albuterol Sulfate (Ventolin Neb Soln) 2.5 mg PRN QID PRN NEB COUGH Last administered on 05/08/16 14:51; Start 05/07/16 at 03:15; Stop 05/08/16 at 17:48 ; Status DC Albuterol/ Ipratropium (Duoneb) 3 ml STK-MED ONCE .ROUTE Last administered on 07:37; Start 05/07/16 at 03:41; Stop 05/07/16 at 03:51; Status DC Amoxicillin/ Clavulanate Potassium (Augmentin 875/ 125mg) 1 tab BID PO Last administered on 05/10/16 08:24; Start 05/08/16 at 18:30 Albuterol Sulfate (Ventolin Neb Soln) 2.5 mg QID NEB Last administered on 20:28; Start 05/08/16 at 21:00 Albuterol Sulfate (Ventolin Neb Soln) 2.5 mg PRN Q2HR PRN NEB DYSPNEA; Start at 17:45 Prednisone (Prednisone) 20 mg DAILY PO Last administered on 05/10/16 08:24; Start 05/08/16 at 18:30 Ondansetron HCl (Zofran) 4 mg PRN Q6HRS PRN IV NAUSEA/VOMITING; Start 05/09/16 at 13:45 Active Scripts Active Reported Proair Hfa Inhaler (Albuterol Sulfate) 8.5 Gm Hfa.aer.ad 1 Puff INH Folic Acid 1 Mg Tablet 1 Mg PO Spironolactone 50 Mg Tablet 50 Mg PO Propranolol Hcl 10 Mg Tablet 10 Mg PO Lansoprazole 30 Mg Capsule.dr 30 Mg PO Xifaxan (Rifaximin) 550 Mg Tablet 1 Tab PO Ciprofloxacin Hcl 500 Mg Tablet 1 Tab PO Ondansetron Odt (Ondansetron) 4 Mg Tab.rapdis 1 Tab PO Vitals/I & O Vital Sign - Last 24 Hours 05/09/16 05/09/16 05/09/16 05/09/16 14:47 15:27 19:00 20:00 Temp 97.9 97.8 97.9 97.8 Pulse 67 68 Resp 18 20 B/P 145/80 137/67 Pulse Ox 94 97 O2 Delivery Nasal Cannula Nasal Cannula Nasal Cannula Nasal Cannula O2 Flow Rate 2.0 2.0 2.0 2.0 05/09/16 05/09/16 05/09/16 05/10/16 20:28 20:53 23:00 03:00 Temp 98.2 97.6 98.2 97.6 Pulse 60 61 63 Resp 20 20 B/P 137/67 149/69 149/72 Pulse Ox 98 93 94 O2 Delivery Nasal Cannula Nasal Cannula Nasal Cannula O2 Flow Rate 2.0 2.0 2.0 05/10/16 05/10/16 05/10/16 07:17 07:41 08:23 Temp 97.9 97.9 Pulse 64 64 Resp 18 B/P 137/71 137/71 Pulse Ox 95 98 O2 Delivery Nasal Cannula Nasal Cannula O2 Flow Rate 2.0 2.0 Intake and Output 05/09/16 05/09/16 05/10/16 15:00 23:00 07:00 Intake Total 540 ml 520 ml 100 ml Output Total 200 ml 600 ml Balance 540 ml 320 ml -500 ml SIRISHA LEMONS III DO May 10, 2016 11:04
[2016-05-10 11:21] VITALS: BP 122/60
--- NOTE | 2016-05-10 13:08 | RAD ---
Examination: CT head without contrast History: History of altered mental status. Comparison: 10/29/2008 Technique: Axial CT images of the head was performed without contrast. PQRS Compliance Statement: One or more of the following individualized dose reduction techniques were utilized for this examination: 1. Automated exposure control 2. Adjustment of the mA and/or kV according to patient size 3. Use of iterative reconstruction technique Findings: There is no evidence of midline shift. There is no acute intracranial bleed or extra axial fluid collection identified. Aneurysmal coiling changes identified on the right, which causes streak artifact limiting evaluation. Grossly no obvious mass effect visualized. The basal cisterns are uneffaced Mild bilateral periventricular white matter hypodensities likely chronic small vessel ischemic disease. The visualized paranasal sinuses, mastoid air cells are clear. Impression: No acute intracranial findings. Examination limited due to aneurysmal coiling changes artifact.
--- NOTE | 2016-05-10 13:17 | PDOC2 ---
NEUROLOGY CONSULT Date of Admission Date of Admission DATE: 05/10/16 TIME: 13:08 Reason for Consult Reason for Consult: Altered mental status Referring Physician Referring Physician: Dr. Peguero Source Source: Chart review, Patient History of Present Illness History of Present Illness The patient is a 55-year-old right-handed female admitted 5 days ago for a Seroquel overdose. She is mourning the of 2 of her daughters in the past 2 years. She has long-standing bipolar disorder. There is also history of intracranial aneurysm. The patient has had no history of stroke or seizure. At baseline, she lives on her own, a sister lives down the hallway, but the patient does her own cooking, cleaning, driving, and shopping. osIt was decided to consult neurology as she has been intermittently drowsy and confused. Past Medical History Cardiovascular: HTN Pulmonary: Asthma, Other CENTRAL NERVOUS SYSTEM: Other (intracranial aneurysm) GI: GERD Hepatobiliary: Hep A/B/C (C) Psych: Bipolar, Other (PTSD) Past Surgical History Past Surgical History: Other (aneurysm resection) Family History Family History: No pertinent hx (negative for seizures) Social History Social History No alcohol, tobacco, street drugs, lives on her own, recent deaths of her 2 daughters as already described above Current Medications Current Medications Current Medications Ondansetron HCl (Zofran) 4 mg PRN Q8HRS PRN IV NAUSEA/VOMITING; Start 05/05/16 at 01:30; Stop 05/06/16 at 01:29; Status DC Acetaminophen (Tylenol) 650 mg PRN Q4HRS PRN PO FEVER Last administered on 05/05 21:30; Start 05/05/16 at 01:30; Stop 05/06/16 at 01:29; Status DC Lorazepam 1 mg 1 mg 1X ONCE IV Last administered on 05/05/16 01:45; Start 02/09 at 01:45; Stop 05/05/16 at 03:23; Status DC Sodium Chloride (Iv Sodium Chloride 0.9% 1000ml Bag) 1,000 ml @ 100 mls/hr Q10H IV Last administered on 05/08/16 11:33; Start 05/05/16 at 08:00 Folic Acid (Folic Acid) 1 mg DAILY PO Last administered on 05/10/16 08:24; Start 05/05/16 at 09:00 Propranolol HCl (Inderal) 10 mg BID PO Last administered on 05/10/16 08:23; Start 05/05/16 at 09:00 Rifaximin (Xifaxan) 550 mg DAILY PO Last administered on 05/10/16 08:24; Start 05/05/16 at 10:00 Pantoprazole Sodium (Protonix) 40 mg DAILYAC PO Last administered on 05/10/16 08:23; Start 05/05/16 at 10:00 Tramadol HCl (Ultram) 50 mg PRN Q6HRS PRN PO PAIN Last administered on 11:32; Start 05/07/16 at 02:15 Albuterol Sulfate (Ventolin Neb Soln) 2.5 mg PRN QID PRN NEB COUGH Last administered on 05/08/16 14:51; Start 05/07/16 at 03:15; Stop 05/08/16 at 17:48 ; Status DC Albuterol/ Ipratropium (Duoneb) 3 ml STK-MED ONCE .ROUTE Last administered on 07:37; Start 05/07/16 at 03:41; Stop 05/07/16 at 03:51; Status DC Amoxicillin/ Clavulanate Potassium (Augmentin 875/ 125mg) 1 tab BID PO Last administered on 05/10/16 08:24; Start 05/08/16 at 18:30 Albuterol Sulfate (Ventolin Neb Soln) 2.5 mg QID NEB Last administered on 20:28; Start 05/08/16 at 21:00 Albuterol Sulfate (Ventolin Neb Soln) 2.5 mg PRN Q2HR PRN NEB DYSPNEA; Start at 17:45 Prednisone (Prednisone) 20 mg DAILY PO Last administered on 05/10/16 08:24; Start 05/08/16 at 18:30 Ondansetron HCl (Zofran) 4 mg PRN Q6HRS PRN IV NAUSEA/VOMITING; Start 05/09/16 at 13:45 Active Scripts Active Reported Proair Hfa Inhaler (Albuterol Sulfate) 8.5 Gm Hfa.aer.ad 1 Puff INH Folic Acid 1 Mg Tablet 1 Mg PO Spironolactone 50 Mg Tablet 50 Mg PO Propranolol Hcl 10 Mg Tablet 10 Mg PO Lansoprazole 30 Mg Capsule.dr 30 Mg PO Xifaxan (Rifaximin) 550 Mg Tablet 1 Tab PO Ciprofloxacin Hcl 500 Mg Tablet 1 Tab PO Ondansetron Odt (Ondansetron) 4 Mg Tab.rapdis 1 Tab PO Allergies Allergies: Coded Allergies: azithromycin (Verified Allergy, Intermediate, 05/05/16) diphenhydramine (Verified Allergy, Intermediate, 05/05/16) morphine (Verified Allergy, Intermediate, 05/05/16) ROS Review of System Patient denies fevers, chills, weight loss, dyspnea, angina, abdominal pain, change in bowels, or dysuria. 14 point review of systems is negative. Physical Exam Physical Examination PHYSICAL EXAMINATION: Vital signs: see above. General appearance is normal and in no acute distress. HEENT: Normocephalic and nontraumatic. Eyes, nose, ears, and throat are unremarkable. Neck is supple. No lymphadenopathy. No bruits are heard over the carotid artery. No crepitus. Cardiovascular: S1, S2, regular rate and rhythm. NEUROLOGICAL EXAMINATION: Mental Status Examination: Alert. She is sitting in the bed with a one-to-one sitter. She walks back and forth. She tells me her name and she says that she is in the hospital, but on the date, she Keeps repeating the word, "March." Then I asked her about her aneurysm, and she fluently tells me that it was a long time ago and that she has had no problems from it. Then I asked her to name objects and she goes back to saying "March." She does follow commands. She is able to lie down in the bed without any difficulties. At first I thought she may be having some mild clonus, but these movements all appear voluntary. Pupils are equal round and reactive to light and accommodation. Funduscopic exam: No papilledema. Extraocular movements are intact. Visual field exam shows no defect on the direct confrontation. No motor or sensory deficits on the facial exam. Uvula in the midline and the soft palate elevated symmetrically. No deviation of the tongue to any direction. Gross hearing is normal. Shoulder shrug normal. Muscle tone is normal. Muscle strength is 5. Deep tendon reflexes are 2+ all around. Plantar reflex is with flexion response bilaterally. [id number] test performance is accurate. Alternative movements are accurate. Gait not tested. Sensory exam shows no deficits. No cerebellar signs are elicited. Vitals VITALS Vital Signs Date Time Temp Pulse Resp B/P Pulse Ox O2 Delivery O2 Flow Rate FiO2 05/10/16 11:21 98.1 60 18 122/60 97 Nasal Cannula 2.0 98.1 Labs Labs Laboratory Tests Test 05/09/16 04:27 05/10/16 06:12 White Blood Count 7.4x10^3/uL (4.0-11.0) 7.2x10^3/uL (4.0-11.0) Red Blood Count 4.02x10^6/uL (3.50-5.40) 4.02x10^6/uL (3.50-5.40) Hemoglobin 13.0g/dL (12.0-15.5) 12.9g/dL (12.0-15.5) Hematocrit 38.5% (36.0-47.0) 38.2% (36.0-47.0) Mean Corpuscular Volume 96fL (79-100) 95fL (79-100) Mean Corpuscular Hemoglobin 32pg (25-35) 32pg (25-35) Mean Corpuscular Hemoglobin Concent 34g/dL (31-37) 34g/dL (31-37) Red Cell Distribution Width 16.1% (11.5-14.5) 16.5% (11.5-14.5) Platelet Count 113x10^3/uL (140-400) 109x10^3/uL (140-400) Neutrophils (%) (Auto) 80% (31-73) 56% (31-73) Lymphocytes (%) (Auto) 13% (24-48) 28% (24-48) Monocytes (%) (Auto) 4% (0-9) 7% (0-9) Eosinophils (%) (Auto) 1% (0-3) 9% (0-3) Basophils (%) (Auto) 1% (0-3) 1% (0-3) Neutrophils # (Auto) 6.0x10^3uL (1.8-7.7) 4.0x10^3uL (1.8-7.7) Lymphocytes # (Auto) 1.0x10^3/uL (1.0-4.8) 2.0x10^3/uL (1.0-4.8) Monocytes # (Auto) 0.3x10^3/uL (0.0-1.1) 0.5x10^3/uL (0.0-1.1) Eosinophils # (Auto) 0.1x10^3/uL (0.0-0.7) 0.6x10^3/uL (0.0-0.7) Basophils # (Auto) 0.1x10^3/uL (0.0-0.2) 0.0x10^3/uL (0.0-0.2) Sodium Level 142mmol/L (136-145) 143mmol/L (136-145) Potassium Level 4.2mmol/L (3.5-5.1) 3.7mmol/L (3.5-5.1) Chloride Level 110mmol/L (98-107) 110mmol/L (98-107) Carbon Dioxide Level 29mmol/L (21-32) 32mmol/L (21-32) Anion Gap 3 (6-14) 1 (6-14) Blood Urea Nitrogen 9mg/dL (7-20) 11mg/dL (7-20) Creatinine 0.5mg/dL (0.6-1.0) 0.5mg/dL (0.6-1.0) Estimated GFR (Cockcroft-Gault) 127.6 127.6 Glucose Level 152mg/dL (70-99) 98mg/dL (70-99) Calcium Level 7.7mg/dL (8.5-10.1) 7.9mg/dL (8.5-10.1) Laboratory Tests Test 05/10/16 06:12 White Blood Count 7.2x10^3/uL (4.0-11.0) Red Blood Count 4.02x10^6/uL (3.50-5.40) Hemoglobin 12.9g/dL (12.0-15.5) Hematocrit 38.2% (36.0-47.0) Mean Corpuscular Volume 95fL (79-100) Mean Corpuscular Hemoglobin 32pg (25-35) Mean Corpuscular Hemoglobin Concent 34g/dL (31-37) Red Cell Distribution Width 16.5% (11.5-14.5) Platelet Count 109x10^3/uL (140-400) Neutrophils (%) (Auto) 56% (31-73) Lymphocytes (%) (Auto) 28% (24-48) Monocytes (%) (Auto) 7% (0-9) Eosinophils (%) (Auto) 9% (0-3) Basophils (%) (Auto) 1% (0-3) Neutrophils # (Auto) 4.0x10^3uL (1.8-7.7) Lymphocytes # (Auto) 2.0x10^3/uL (1.0-4.8) Monocytes # (Auto) 0.5x10^3/uL (0.0-1.1) Eosinophils # (Auto) 0.6x10^3/uL (0.0-0.7) Basophils # (Auto) 0.0x10^3/uL (0.0-0.2) Sodium Level 143mmol/L (136-145) Potassium Level 3.7mmol/L (3.5-5.1) Chloride Level 110mmol/L (98-107) Carbon Dioxide Level 32mmol/L (21-32) Anion Gap 1 (6-14) Blood Urea Nitrogen 11mg/dL (7-20) Creatinine 0.5mg/dL (0.6-1.0) Estimated GFR (Cockcroft-Gault) 127.6 Glucose Level 98mg/dL (70-99) Calcium Level 7.9mg/dL (8.5-10.1) Images Images CT head shows an aneurysm clip, nothing acute, radiology interpretation pending Assessment/Plan Assessment/Plan Impression: At first I was worried that she was having myoclonus, even truncal ataxia, but after I looked at the CT scan I went back to see her, and she was fluently able to tell me about her aneurysm. Thus, I believe that any of these neurological issues such as unresponsiveness, aphasia, and movement abnormalities are all psychogenic. I do not believe that she is having an acute central nervous system infection or seizures. Recommendations: Hold off on additional studies such as EEG, lumbar puncture, and MRI Continue to observe I recommend inpatient psychiatric stay. I discussed my findings with the patient's daughter. Thank you for letting me help with the patient's care. BETH CASTRO MD May 10, 2016 13:17
[2016-05-10 15:23] VITALS: BP 145/72
[2016-05-10 19:00] VITALS: BP 135/74
[2016-05-10] MEDS: ALBUTEROL SULFATE 2.5 MG/3 ML NEBU. NEB SCH ×2 (21:00→21:01)
[2016-05-10] MEDS ORDERED: ACETAMINOPHEN 325 MG TABLET. PO PRN (21:30)
[2016-05-10] MEDS ORDERED: KETOROLAC 15 MG/ML VIAL. IM ONE (21:30)
[2016-05-10 23:00] VITALS: BP 116/58
[2016-05-11 03:00] VITALS: BP 137/67
[2016-05-11] MEDS: IV NORMAL SALINE 1000ML BAG 1,000 ML IV SCH ×2 (04:00→14:00)
[2016-05-11 05:26] LABS: BASO % 1 % (0-3); EOS % 7 % (0-3); HEMOGLOBIN 12.1 g/dL (12.0-15.5); LYMPH # 2.2 x10^3/uL (1.0-4.8); LYMPH % 32 % (24-48); MEAN CORPUSCULAR HEMOGLOBIN 33 pg (25-35); MEAN CORPUSCULAR HGB CONC 35 g/dL (31-37); MEAN CORPUSCULAR VOLUME 94 fL (79-100); MONO % 9 % (0-9); NEUT % 51 % (31-73); PLATELET COUNT 95 x10^3/uL (140-400); RED BLOOD COUNT 3.74 x10^6/uL (3.50-5.40); RED CELL DISTRIBUTION WIDTH 16.3 % (11.5-14.5); WHITE BLOOD COUNT 6.8 x10^3/uL (4.0-11.0)
[2016-05-11 05:50] LABS: CALCIUM 7.8 mg/dL (8.5-10.1); CREATININE 0.6 mg/dL (0.6-1.0); GFR 103.4; POTASSIUM 3.5 mmol/L (3.5-5.1)
[2016-05-11 07:00] VITALS: BP 139/78
[2016-05-11] MEDS: FOLIC ACID 1 MG TABLET PO SCH (07:41)
[2016-05-11] MEDS: PREDNISONE 20 MG TABLET PO SCH (07:41)
[2016-05-11] MEDS: PROPRANOLOL 10 MG TABLET. PO SCH ×2 (07:41→22:01)
[2016-05-11] MEDS: PANTOPRAZOLE 40 MG TABLET. PO SCH (07:41)
[2016-05-11] MEDS: AMOXICILLIN/K CLAV 875/125MG TABLET. PO SCH ×2 (07:41→22:00)
[2016-05-11] MEDS: ALBUTEROL SULFATE 2.5 MG/3 ML NEBU. NEB SCH ×4 (09:00→20:21)
[2016-05-11] MEDS: ONDANSETRON ODT 4 MG TAB.RAPDIS PO PRN (10:00)
--- NOTE | 2016-05-11 10:04 | PDOC ---
PULMONARY PROGRESS NOTES Subjective more alert, has cough, sob is better off o2, no pain, is tired Vitals Vital Signs Date Time Temp Pulse Resp B/P Pulse Ox O2 Delivery O2 Flow Rate FiO2 05/11/16 07:41 64 139/78 05/11/16 07:00 98.1 14 92 Room Air 98.1 05/11/16 03:00 2.0 Comments ros as mentioned as above other sys otherwise neg General: Alert, Lethargic HEENT: Other (nc at perrl ) Lungs: Clear Cardiovascular: S1, S2 Abdomen: Soft Neuro Exam: Alert Extremities: No Edema Skin: Warm Labs Laboratory Tests Test 05/10/16 06:12 05/10/16 11:55 05/11/16 04:25 White Blood Count 7.2x10^3/uL (4.0-11.0) 6.8x10^3/uL (4.0-11.0) Red Blood Count 4.02x10^6/uL (3.50-5.40) 3.74x10^6/uL (3.50-5.40) Hemoglobin 12.9g/dL (12.0-15.5) 12.1g/dL (12.0-15.5) Hematocrit 38.2% (36.0-47.0) 35.0% (36.0-47.0) Mean Corpuscular Volume 95fL (79-100) 94fL (79-100) Mean Corpuscular Hemoglobin 32pg (25-35) 33pg (25-35) Mean Corpuscular Hemoglobin Concent 34g/dL (31-37) 35g/dL (31-37) Red Cell Distribution Width 16.5% (11.5-14.5) 16.3% (11.5-14.5) Platelet Count 109x10^3/uL (140-400) 95x10^3/uL (140-400) Neutrophils (%) (Auto) 56% (31-73) 51% (31-73) Lymphocytes (%) (Auto) 28% (24-48) 32% (24-48) Monocytes (%) (Auto) 7% (0-9) 9% (0-9) Eosinophils (%) (Auto) 9% (0-3) 7% (0-3) Basophils (%) (Auto) 1% (0-3) 1% (0-3) Neutrophils # (Auto) 4.0x10^3uL (1.8-7.7) 3.5x10^3uL (1.8-7.7) Lymphocytes # (Auto) 2.0x10^3/uL (1.0-4.8) 2.2x10^3/uL (1.0-4.8) Monocytes # (Auto) 0.5x10^3/uL (0.0-1.1) 0.6x10^3/uL (0.0-1.1) Eosinophils # (Auto) 0.6x10^3/uL (0.0-0.7) 0.5x10^3/uL (0.0-0.7) Basophils # (Auto) 0.0x10^3/uL (0.0-0.2) 0.0x10^3/uL (0.0-0.2) Sodium Level 143mmol/L (136-145) 147mmol/L (136-145) Potassium Level 3.7mmol/L (3.5-5.1) 3.5mmol/L (3.5-5.1) Chloride Level 110mmol/L (98-107) 111mmol/L (98-107) Carbon Dioxide Level 32mmol/L (21-32) 32mmol/L (21-32) Anion Gap 1 (6-14) 4 (6-14) Blood Urea Nitrogen 11mg/dL (7-20) 17mg/dL (7-20) Creatinine 0.5mg/dL (0.6-1.0) 0.6mg/dL (0.6-1.0) Estimated GFR (Cockcroft-Gault) 127.6 103.4 Glucose Level 98mg/dL (70-99) 93mg/dL (70-99) Calcium Level 7.9mg/dL (8.5-10.1) 7.8mg/dL (8.5-10.1) Ammonia 65mcmol/L (11-34) Laboratory Tests Test 05/10/16 11:55 05/11/16 04:25 Ammonia 65mcmol/L (11-34) White Blood Count 6.8x10^3/uL (4.0-11.0) Red Blood Count 3.74x10^6/uL (3.50-5.40) Hemoglobin 12.1g/dL (12.0-15.5) Hematocrit 35.0% (36.0-47.0) Mean Corpuscular Volume 94fL (79-100) Mean Corpuscular Hemoglobin 33pg (25-35) Mean Corpuscular Hemoglobin Concent 35g/dL (31-37) Red Cell Distribution Width 16.3% (11.5-14.5) Platelet Count 95x10^3/uL (140-400) Neutrophils (%) (Auto) 51% (31-73) Lymphocytes (%) (Auto) 32% (24-48) Monocytes (%) (Auto) 9% (0-9) Eosinophils (%) (Auto) 7% (0-3) Basophils (%) (Auto) 1% (0-3) Neutrophils # (Auto) 3.5x10^3uL (1.8-7.7) Lymphocytes # (Auto) 2.2x10^3/uL (1.0-4.8) Monocytes # (Auto) 0.6x10^3/uL (0.0-1.1) Eosinophils # (Auto) 0.5x10^3/uL (0.0-0.7) Basophils # (Auto) 0.0x10^3/uL (0.0-0.2) Sodium Level 147mmol/L (136-145) Potassium Level 3.5mmol/L (3.5-5.1) Chloride Level 111mmol/L (98-107) Carbon Dioxide Level 32mmol/L (21-32) Anion Gap 4 (6-14) Blood Urea Nitrogen 17mg/dL (7-20) Creatinine 0.6mg/dL (0.6-1.0) Estimated GFR (Cockcroft-Gault) 103.4 Glucose Level 93mg/dL (70-99) Calcium Level 7.8mg/dL (8.5-10.1) Medications Active Scripts Medications Dose Route/Sig Days Date Category Proair Hfa Inhaler (Albuterol Sulfate) 8.5 Gm Hfa.aer.ad 1 Puff INH 3/12/17 Reported Folic Acid 1 Mg Tablet 1 Mg PO 05/05/16 Reported Spironolactone 50 Mg Tablet 50 Mg PO 05/05/16 Reported Propranolol Hcl 10 Mg Tablet 10 Mg PO 05/05/16 Reported Lansoprazole 30 Mg Capsule.dr 30 Mg PO 05/05/16 Reported Xifaxan (Rifaximin) 550 Mg Tablet 1 Tab PO 05/05/16 Reported Ciprofloxacin Hcl 500 Mg Tablet 1 Tab PO 05/05/16 Reported Ondansetron Odt (Ondansetron) 4 Mg Tab.rapdis 1 Tab PO 05/05/16 Reported Comments cxr reviewed. Impression . 1. Abnormal x-ray, possible pneumonia. 2. Acute exacerbation of chronic obstructive pulmonary disease. 3. Suicide attempt. 4. Acute hypercapnic respiratory failure. Plan . 1. Avoid over sedation. 2. Augmentin p.o. for total of 7 days. 3. Nebulized treatments. 4. Oxygen supplementation. 5. elevate hob 6. prednisone w taper by 10 mg q 3d. discussed w pt and rn will sign off but available for any help. MIKO MOROCHO MD May 11, 2016 10:03
--- NOTE | 2016-05-11 10:37 | PDOC ---
PROGRESS NOTES Chief Complaint Chief Complaint Intentional drug overdose Suicide attempt depression History of Present Illness History of Present Illness Patient up walking when seen this AM. More alert and able to communicate, but not overly talkative. Pt seemingly agreeable at this point to be admitted to inpatient psych once social work confirms an available bed. Neurology saw the pt yesterday and determined her condition to be likely psychogenic. Vitals Vitals Vital Signs Date Time Temp Pulse Resp B/P Pulse Ox O2 Delivery O2 Flow Rate FiO2 05/11/16 07:41 64 139/78 05/11/16 07:00 98.1 14 92 Room Air 98.1 05/11/16 03:00 2.0 Physical Exam General: No acute distress, Other (improved alertness, up and walking) Heart: Regular rate, No murmurs Lungs: Clear Abdomen: Soft, No tenderness Extremities: No cyanosis, No edema Skin: No breakdown Labs LABS Laboratory Tests Test 05/10/16 11:55 05/11/16 04:25 Ammonia 65mcmol/L (11-34) White Blood Count 6.8x10^3/uL (4.0-11.0) Red Blood Count 3.74x10^6/uL (3.50-5.40) Hemoglobin 12.1g/dL (12.0-15.5) Hematocrit 35.0% (36.0-47.0) Mean Corpuscular Volume 94fL (79-100) Mean Corpuscular Hemoglobin 33pg (25-35) Mean Corpuscular Hemoglobin Concent 35g/dL (31-37) Red Cell Distribution Width 16.3% (11.5-14.5) Platelet Count 95x10^3/uL (140-400) Neutrophils (%) (Auto) 51% (31-73) Lymphocytes (%) (Auto) 32% (24-48) Monocytes (%) (Auto) 9% (0-9) Eosinophils (%) (Auto) 7% (0-3) Basophils (%) (Auto) 1% (0-3) Neutrophils # (Auto) 3.5x10^3uL (1.8-7.7) Lymphocytes # (Auto) 2.2x10^3/uL (1.0-4.8) Monocytes # (Auto) 0.6x10^3/uL (0.0-1.1) Eosinophils # (Auto) 0.5x10^3/uL (0.0-0.7) Basophils # (Auto) 0.0x10^3/uL (0.0-0.2) Sodium Level 147mmol/L (136-145) Potassium Level 3.5mmol/L (3.5-5.1) Chloride Level 111mmol/L (98-107) Carbon Dioxide Level 32mmol/L (21-32) Anion Gap 4 (6-14) Blood Urea Nitrogen 17mg/dL (7-20) Creatinine 0.6mg/dL (0.6-1.0) Estimated GFR (Cockcroft-Gault) 103.4 Glucose Level 93mg/dL (70-99) Calcium Level 7.8mg/dL (8.5-10.1) Review of Systems Review of Systems denies fever, chills improved wheeze, shortness of air more coherent ambulating Assessment and Plan Assessmemt and Plan ASSESSMENT: 1. drug overdose: Seroquel ingestion w/o cardiac impairment. 2. sedation: drug induced. 3. suicide attempt 4. depression PLAN: - Neurology determined AMS to be likely of psychogenic origin; CT head negative for acute pathology/changes - SW coordinating psych placement - cont antibiotics - cont IVF, NS at 100ml/hr - cont 1:1 monitoring - cont to monitor daily labs - appreciate subspecialist input Problems: Comment Review of Relevant I have reviewed the following items tamar (where applicable) has been applied. Labs Laboratory Tests Test 05/10/16 06:12 05/10/16 11:55 05/11/16 04:25 White Blood Count 7.2x10^3/uL (4.0-11.0) 6.8x10^3/uL (4.0-11.0) Red Blood Count 4.02x10^6/uL (3.50-5.40) 3.74x10^6/uL (3.50-5.40) Hemoglobin 12.9g/dL (12.0-15.5) 12.1g/dL (12.0-15.5) Hematocrit 38.2% (36.0-47.0) 35.0% (36.0-47.0) Mean Corpuscular Volume 95fL (79-100) 94fL (79-100) Mean Corpuscular Hemoglobin 32pg (25-35) 33pg (25-35) Mean Corpuscular Hemoglobin Concent 34g/dL (31-37) 35g/dL (31-37) Red Cell Distribution Width 16.5% (11.5-14.5) 16.3% (11.5-14.5) Platelet Count 109x10^3/uL (140-400) 95x10^3/uL (140-400) Neutrophils (%) (Auto) 56% (31-73) 51% (31-73) Lymphocytes (%) (Auto) 28% (24-48) 32% (24-48) Monocytes (%) (Auto) 7% (0-9) 9% (0-9) Eosinophils (%) (Auto) 9% (0-3) 7% (0-3) Basophils (%) (Auto) 1% (0-3) 1% (0-3) Neutrophils # (Auto) 4.0x10^3uL (1.8-7.7) 3.5x10^3uL (1.8-7.7) Lymphocytes # (Auto) 2.0x10^3/uL (1.0-4.8) 2.2x10^3/uL (1.0-4.8) Monocytes # (Auto) 0.5x10^3/uL (0.0-1.1) 0.6x10^3/uL (0.0-1.1) Eosinophils # (Auto) 0.6x10^3/uL (0.0-0.7) 0.5x10^3/uL (0.0-0.7) Basophils # (Auto) 0.0x10^3/uL (0.0-0.2) 0.0x10^3/uL (0.0-0.2) Sodium Level 143mmol/L (136-145) 147mmol/L (136-145) Potassium Level 3.7mmol/L (3.5-5.1) 3.5mmol/L (3.5-5.1) Chloride Level 110mmol/L (98-107) 111mmol/L (98-107) Carbon Dioxide Level 32mmol/L (21-32) 32mmol/L (21-32) Anion Gap 1 (6-14) 4 (6-14) Blood Urea Nitrogen 11mg/dL (7-20) 17mg/dL (7-20) Creatinine 0.5mg/dL (0.6-1.0) 0.6mg/dL (0.6-1.0) Estimated GFR (Cockcroft-Gault) 127.6 103.4 Glucose Level 98mg/dL (70-99) 93mg/dL (70-99) Calcium Level 7.9mg/dL (8.5-10.1) 7.8mg/dL (8.5-10.1) Ammonia 65mcmol/L (11-34) Laboratory Tests Test 05/10/16 11:55 05/11/16 04:25 Ammonia 65mcmol/L (11-34) White Blood Count 6.8x10^3/uL (4.0-11.0) Red Blood Count 3.74x10^6/uL (3.50-5.40) Hemoglobin 12.1g/dL (12.0-15.5) Hematocrit 35.0% (36.0-47.0) Mean Corpuscular Volume 94fL (79-100) Mean Corpuscular Hemoglobin 33pg (25-35) Mean Corpuscular Hemoglobin Concent 35g/dL (31-37) Red Cell Distribution Width 16.3% (11.5-14.5) Platelet Count 95x10^3/uL (140-400) Neutrophils (%) (Auto) 51% (31-73) Lymphocytes (%) (Auto) 32% (24-48) Monocytes (%) (Auto) 9% (0-9) Eosinophils (%) (Auto) 7% (0-3) Basophils (%) (Auto) 1% (0-3) Neutrophils # (Auto) 3.5x10^3uL (1.8-7.7) Lymphocytes # (Auto) 2.2x10^3/uL (1.0-4.8) Monocytes # (Auto) 0.6x10^3/uL (0.0-1.1) Eosinophils # (Auto) 0.5x10^3/uL (0.0-0.7) Basophils # (Auto) 0.0x10^3/uL (0.0-0.2) Sodium Level 147mmol/L (136-145) Potassium Level 3.5mmol/L (3.5-5.1) Chloride Level 111mmol/L (98-107) Carbon Dioxide Level 32mmol/L (21-32) Anion Gap 4 (6-14) Blood Urea Nitrogen 17mg/dL (7-20) Creatinine 0.6mg/dL (0.6-1.0) Estimated GFR (Cockcroft-Gault) 103.4 Glucose Level 93mg/dL (70-99) Calcium Level 7.8mg/dL (8.5-10.1) Medications Current Medications Ondansetron HCl (Zofran) 4 mg PRN Q8HRS PRN IV NAUSEA/VOMITING; Start 05/05/16 at 01:30; Stop 05/06/16 at 01:29; Status DC Acetaminophen (Tylenol) 650 mg PRN Q4HRS PRN PO FEVER Last administered on 05/05 21:30; Start 05/05/16 at 01:30; Stop 05/06/16 at 01:29; Status DC Lorazepam 1 mg 1 mg 1X ONCE IV Last administered on 05/05/16 01:45; Start 02/09 at 01:45; Stop 05/05/16 at 03:23; Status DC Sodium Chloride (Iv Sodium Chloride 0.9% 1000ml Bag) 1,000 ml @ 100 mls/hr Q10H IV Last administered on 05/08/16 11:33; Start 05/05/16 at 08:00 Folic Acid (Folic Acid) 1 mg DAILY PO Last administered on 05/11/16 07:41; Start 05/05/16 at 09:00 Propranolol HCl (Inderal) 10 mg BID PO Last administered on 05/11/16 07:41; Start 05/05/16 at 09:00 Rifaximin (Xifaxan) 550 mg DAILY PO Last administered on 05/10/16 08:24; Start 05/05/16 at 10:00; Stop 05/10/16 at 21:17; Status DC Pantoprazole Sodium (Protonix) 40 mg DAILYAC PO Last administered on 05/11/16 07:41; Start 05/05/16 at 10:00 Tramadol HCl (Ultram) 50 mg PRN Q6HRS PRN PO PAIN Last administered on 11:32; Start 05/07/16 at 02:15 Albuterol Sulfate (Ventolin Neb Soln) 2.5 mg PRN QID PRN NEB COUGH Last administered on 05/08/16 14:51; Start 05/07/16 at 03:15; Stop 05/08/16 at 17:48 ; Status DC Albuterol/ Ipratropium (Duoneb) 3 ml STK-MED ONCE .ROUTE Last administered on 07:37; Start 05/07/16 at 03:41; Stop 05/07/16 at 03:51; Status DC Amoxicillin/ Clavulanate Potassium (Augmentin 875/ 125mg) 1 tab BID PO Last administered on 05/11/16 07:41; Start 05/08/16 at 18:30 Albuterol Sulfate (Ventolin Neb Soln) 2.5 mg QID NEB Last administered on 21:00; Start 05/08/16 at 21:00 Albuterol Sulfate (Ventolin Neb Soln) 2.5 mg PRN Q2HR PRN NEB DYSPNEA; Start at 17:45 Prednisone (Prednisone) 20 mg DAILY PO Last administered on 05/11/16 07:41; Start 05/08/16 at 18:30 Ondansetron HCl (Zofran) 4 mg PRN Q6HRS PRN IV NAUSEA/VOMITING; Start 05/09/16 at 13:45 Ketorolac Tromethamine (Toradol) 15 mg 1X ONCE IM Last administered on 21:37; Start 05/10/16 at 21:30; Stop 05/10/16 at 21:31; Status DC Acetaminophen (Tylenol) 650 mg PRN Q6HRS PRN PO MILD PAIN / TEMP Last administered on 05/10/16 23:59; Start 05/10/16 at 21:30 Ondansetron HCl (Zofran Odt) 4 mg PRN Q8HRS PRN PO NAUSEA/VOMITING Last administered on 05/11/16 10:00; Start 05/11/16 at 09:45 Active Scripts Active Reported Proair Hfa Inhaler (Albuterol Sulfate) 8.5 Gm Hfa.aer.ad 1 Puff INH Folic Acid 1 Mg Tablet 1 Mg PO Spironolactone 50 Mg Tablet 50 Mg PO Propranolol Hcl 10 Mg Tablet 10 Mg PO Lansoprazole 30 Mg Capsule.dr 30 Mg PO Xifaxan (Rifaximin) 550 Mg Tablet 1 Tab PO Ondansetron Odt (Ondansetron) 4 Mg Tab.rapdis 1 Tab PO Vitals/I & O Vital Sign - Last 24 Hours 05/10/16 05/10/16 05/10/16 05/10/16 11:21 15:23 19:00 20:00 Temp 98.1 97.8 98.2 98.1 97.8 98.2 Pulse 60 69 73 Resp 18 20 20 B/P 122/60 145/72 135/74 Pulse Ox 97 93 O2 Delivery Nasal Cannula Nasal Cannula Nasal Cannula Nasal Cannula O2 Flow Rate 2.0 2.0 2.0 2.0 05/10/16 05/10/16 05/10/16 05/11/16 21:04 21:08 23:00 03:00 Temp 98.6 97.7 98.6 97.7 Pulse 73 67 64 Resp 20 20 B/P 135/74 116/58 137/67 Pulse Ox 98 97 97 O2 Delivery Nasal Cannula Nasal Cannula Nasal Cannula O2 Flow Rate 2.0 2.0 2.0 05/11/16 05/11/16 07:00 07:41 Temp 98.1 98.1 Pulse 64 64 Resp 14 B/P 139/78 139/78 Pulse Ox 92 O2 Delivery Room Air Intake and Output 05/10/16 05/10/16 05/11/16 15:00 23:00 07:00 Intake Total 200 ml 200 ml Output Total 300 ml Balance 200 ml -100 ml SIRISHA LEMONS III DO May 11, 2016 10:37
[2016-05-11 11:00] VITALS: BP 160/88
--- NOTE | 2016-05-11 13:08 | PDOC ---
PROGRESS NOTES Assessment Problems Medical Problems: (1) Altered mental status Status: Acute The encephalopathy is gradually improving. She is generally keeping her eyes closed but able to open her eyes and engage in conversation with appropriate answers. She is following commands well. The exam continues to be nonfocal. Physical combination of drug overdose and psychiatric symptoms. She may be transferred to a psychiatric facility from a neurologic perspective when she is medically stable. (2) Suicidal overdose Status: Acute She will need to be transferred to a psychiatric facility because of her suicidal attempt. Subjective I'm not in any pain. I'm not very hungry. Objective Vital Signs Date Time Temp Pulse Resp B/P Pulse Ox O2 Delivery O2 Flow Rate FiO2 05/11/16 11:00 97.8 62 14 160/88 91 Room Air 97.8 05/11/16 03:00 2.0 Intake and Output 05/11/16 07:00 Intake Total 400 ml Output Total 300 ml Balance 100 ml Intake Oral 400 ml Output Urine Total 300 ml # Voids 1 PHYSICAL EXAM She was sitting up in her bed. A sitter was present at bedside. She had a meal in front of her which she had not started eating. Initially she looked like her head was nodding and she was falling asleep. As I engage during conversation she opened her eyes and was able to talk appropriately. Cranial nerves II through XII are intact. Muscle bulk and tone was normal. There was no drift or asterixis. Power effort was diminished but her power was symmetric. Sensation was intact in upper and lower extremities. Movements were well coordinated. Review of Relevant I have reviewed the following items tamar (where applicable) has been applied. Labs Laboratory Tests Test 05/10/16 06:12 05/10/16 11:55 05/11/16 04:25 White Blood Count 7.2x10^3/uL (4.0-11.0) 6.8x10^3/uL (4.0-11.0) Red Blood Count 4.02x10^6/uL (3.50-5.40) 3.74x10^6/uL (3.50-5.40) Hemoglobin 12.9g/dL (12.0-15.5) 12.1g/dL (12.0-15.5) Hematocrit 38.2% (36.0-47.0) 35.0% (36.0-47.0) Mean Corpuscular Volume 95fL (79-100) 94fL (79-100) Mean Corpuscular Hemoglobin 32pg (25-35) 33pg (25-35) Mean Corpuscular Hemoglobin Concent 34g/dL (31-37) 35g/dL (31-37) Red Cell Distribution Width 16.5% (11.5-14.5) 16.3% (11.5-14.5) Platelet Count 109x10^3/uL (140-400) 95x10^3/uL (140-400) Neutrophils (%) (Auto) 56% (31-73) 51% (31-73) Lymphocytes (%) (Auto) 28% (24-48) 32% (24-48) Monocytes (%) (Auto) 7% (0-9) 9% (0-9) Eosinophils (%) (Auto) 9% (0-3) 7% (0-3) Basophils (%) (Auto) 1% (0-3) 1% (0-3) Neutrophils # (Auto) 4.0x10^3uL (1.8-7.7) 3.5x10^3uL (1.8-7.7) Lymphocytes # (Auto) 2.0x10^3/uL (1.0-4.8) 2.2x10^3/uL (1.0-4.8) Monocytes # (Auto) 0.5x10^3/uL (0.0-1.1) 0.6x10^3/uL (0.0-1.1) Eosinophils # (Auto) 0.6x10^3/uL (0.0-0.7) 0.5x10^3/uL (0.0-0.7) Basophils # (Auto) 0.0x10^3/uL (0.0-0.2) 0.0x10^3/uL (0.0-0.2) Sodium Level 143mmol/L (136-145) 147mmol/L (136-145) Potassium Level 3.7mmol/L (3.5-5.1) 3.5mmol/L (3.5-5.1) Chloride Level 110mmol/L (98-107) 111mmol/L (98-107) Carbon Dioxide Level 32mmol/L (21-32) 32mmol/L (21-32) Anion Gap 1 (6-14) 4 (6-14) Blood Urea Nitrogen 11mg/dL (7-20) 17mg/dL (7-20) Creatinine 0.5mg/dL (0.6-1.0) 0.6mg/dL (0.6-1.0) Estimated GFR (Cockcroft-Gault) 127.6 103.4 Glucose Level 98mg/dL (70-99) 93mg/dL (70-99) Calcium Level 7.9mg/dL (8.5-10.1) 7.8mg/dL (8.5-10.1) Ammonia 65mcmol/L (11-34) Laboratory Tests Test 05/11/16 04:25 White Blood Count 6.8x10^3/uL (4.0-11.0) Red Blood Count 3.74x10^6/uL (3.50-5.40) Hemoglobin 12.1g/dL (12.0-15.5) Hematocrit 35.0% (36.0-47.0) Mean Corpuscular Volume 94fL (79-100) Mean Corpuscular Hemoglobin 33pg (25-35) Mean Corpuscular Hemoglobin Concent 35g/dL (31-37) Red Cell Distribution Width 16.3% (11.5-14.5) Platelet Count 95x10^3/uL (140-400) Neutrophils (%) (Auto) 51% (31-73) Lymphocytes (%) (Auto) 32% (24-48) Monocytes (%) (Auto) 9% (0-9) Eosinophils (%) (Auto) 7% (0-3) Basophils (%) (Auto) 1% (0-3) Neutrophils # (Auto) 3.5x10^3uL (1.8-7.7) Lymphocytes # (Auto) 2.2x10^3/uL (1.0-4.8) Monocytes # (Auto) 0.6x10^3/uL (0.0-1.1) Eosinophils # (Auto) 0.5x10^3/uL (0.0-0.7) Basophils # (Auto) 0.0x10^3/uL (0.0-0.2) Sodium Level 147mmol/L (136-145) Potassium Level 3.5mmol/L (3.5-5.1) Chloride Level 111mmol/L (98-107) Carbon Dioxide Level 32mmol/L (21-32) Anion Gap 4 (6-14) Blood Urea Nitrogen 17mg/dL (7-20) Creatinine 0.6mg/dL (0.6-1.0) Estimated GFR (Cockcroft-Gault) 103.4 Glucose Level 93mg/dL (70-99) Calcium Level 7.8mg/dL (8.5-10.1) Medications Current Medications Ondansetron HCl (Zofran) 4 mg PRN Q8HRS PRN IV NAUSEA/VOMITING; Start 05/05/16 at 01:30; Stop 05/06/16 at 01:29; Status DC Acetaminophen (Tylenol) 650 mg PRN Q4HRS PRN PO FEVER Last administered on 05/05 21:30; Start 05/05/16 at 01:30; Stop 05/06/16 at 01:29; Status DC Lorazepam 1 mg 1 mg 1X ONCE IV Last administered on 05/05/16 01:45; Start 02/09 at 01:45; Stop 05/05/16 at 03:23; Status DC Sodium Chloride (Iv Sodium Chloride 0.9% 1000ml Bag) 1,000 ml @ 100 mls/hr Q10H IV Last administered on 05/08/16 11:33; Start 05/05/16 at 08:00 Folic Acid (Folic Acid) 1 mg DAILY PO Last administered on 05/11/16 07:41; Start 05/05/16 at 09:00 Propranolol HCl (Inderal) 10 mg BID PO Last administered on 05/11/16 07:41; Start 05/05/16 at 09:00 Rifaximin (Xifaxan) 550 mg DAILY PO Last administered on 05/10/16 08:24; Start 05/05/16 at 10:00; Stop 05/10/16 at 21:17; Status DC Pantoprazole Sodium (Protonix) 40 mg DAILYAC PO Last administered on 05/11/16 07:41; Start 05/05/16 at 10:00 Tramadol HCl (Ultram) 50 mg PRN Q6HRS PRN PO PAIN Last administered on 11:32; Start 05/07/16 at 02:15 Albuterol Sulfate (Ventolin Neb Soln) 2.5 mg PRN QID PRN NEB COUGH Last administered on 05/08/16 14:51; Start 05/07/16 at 03:15; Stop 05/08/16 at 17:48 ; Status DC Albuterol/ Ipratropium (Duoneb) 3 ml STK-MED ONCE .ROUTE Last administered on 07:37; Start 05/07/16 at 03:41; Stop 05/07/16 at 03:51; Status DC Amoxicillin/ Clavulanate Potassium (Augmentin 875/ 125mg) 1 tab BID PO Last administered on 05/11/16 07:41; Start 05/08/16 at 18:30 Albuterol Sulfate (Ventolin Neb Soln) 2.5 mg QID NEB Last administered on 21:00; Start 05/08/16 at 21:00 Albuterol Sulfate (Ventolin Neb Soln) 2.5 mg PRN Q2HR PRN NEB DYSPNEA; Start at 17:45 Prednisone (Prednisone) 20 mg DAILY PO Last administered on 05/11/16 07:41; Start 05/08/16 at 18:30 Ondansetron HCl (Zofran) 4 mg PRN Q6HRS PRN IV NAUSEA/VOMITING; Start 05/09/16 at 13:45 Ketorolac Tromethamine (Toradol) 15 mg 1X ONCE IM Last administered on 21:37; Start 05/10/16 at 21:30; Stop 05/10/16 at 21:31; Status DC Acetaminophen (Tylenol) 650 mg PRN Q6HRS PRN PO MILD PAIN / TEMP Last administered on 05/10/16 23:59; Start 05/10/16 at 21:30 Ondansetron HCl (Zofran Odt) 4 mg PRN Q8HRS PRN PO NAUSEA/VOMITING Last administered on 05/11/16 10:00; Start 05/11/16 at 09:45 Active Scripts Active Reported Proair Hfa Inhaler (Albuterol Sulfate) 8.5 Gm Hfa.aer.ad 1 Puff INH Folic Acid 1 Mg Tablet 1 Mg PO Spironolactone 50 Mg Tablet 50 Mg PO Propranolol Hcl 10 Mg Tablet 10 Mg PO Lansoprazole 30 Mg Capsule.dr 30 Mg PO Xifaxan (Rifaximin) 550 Mg Tablet 1 Tab PO Ondansetron Odt (Ondansetron) 4 Mg Tab.rapdis 1 Tab PO Vitals/I & O Vital Sign - Last 24 Hours 05/10/16 05/10/16 05/10/16 05/10/16 15:23 19:00 20:00 21:04 Temp 97.8 98.2 97.8 98.2 Pulse 69 73 73 Resp 20 20 B/P 145/72 135/74 135/74 Pulse Ox 93 O2 Delivery Nasal Cannula Nasal Cannula Nasal Cannula O2 Flow Rate 2.0 2.0 2.0 05/10/16 05/10/16 05/11/16 05/11/16 21:08 23:00 03:00 07:00 Temp 98.6 97.7 98.1 98.6 97.7 98.1 Pulse 67 64 64 Resp 20 20 14 B/P 116/58 137/67 139/78 Pulse Ox 98 97 97 92 O2 Delivery Nasal Cannula Nasal Cannula Nasal Cannula Room Air O2 Flow Rate 2.0 2.0 2.0 05/11/16 05/11/16 07:41 11:00 Temp 97.8 97.8 Pulse 64 62 Resp 14 B/P 139/78 160/88 Pulse Ox 91 O2 Delivery Room Air Intake and Output 05/10/16 05/10/16 05/11/16 15:00 23:00 07:00 Intake Total 200 ml 200 ml Output Total 300 ml Balance 200 ml -100 ml GERI VILLEGAS MD May 11, 2016 13:08
[2016-05-11 14:51] VITALS: BP 144/77
[2016-05-11] MEDS: TRAMADOL 50 MG TABLET. PO PRN (17:15)
[2016-05-11 19:00] VITALS: BP 145/72
[2016-05-11 23:00] VITALS: BP 134/63
[2016-05-12] MEDS: TRAMADOL 50 MG TABLET. PO PRN ×3 (00:43→20:24)
[2016-05-12 03:07] VITALS: BP 159/90
[2016-05-12 05:38] LABS: BASO % 1 % (0-3); EOS % 7 % (0-3); HEMATOCRIT 34.8 % (36.0-47.0); LYMPH # 2.3 x10^3/uL (1.0-4.8); LYMPH % 39 % (24-48); MEAN CORPUSCULAR HEMOGLOBIN 33 pg (25-35); MEAN CORPUSCULAR HGB CONC 35 g/dL (31-37); MEAN CORPUSCULAR VOLUME 94 fL (79-100); MONO % 8 % (0-9); NEUT % 46 % (31-73); PLATELET COUNT 74 x10^3/uL (140-400); RED BLOOD COUNT 3.69 x10^6/uL (3.50-5.40); RED CELL DISTRIBUTION WIDTH 16.2 % (11.5-14.5); WHITE BLOOD COUNT 5.8 x10^3/uL (4.0-11.0)
[2016-05-12 05:48] LABS: CALCIUM 7.8 mg/dL (8.5-10.1); CREATININE 0.5 mg/dL (0.6-1.0); GFR 127.6; POTASSIUM 3.5 mmol/L (3.5-5.1)
[2016-05-12] MEDS: ALBUTEROL SULFATE 2.5 MG/3 ML NEBU. NEB SCH ×4 (06:17→19:49)
[2016-05-12 07:31] VITALS: BP 135/74
--- NOTE | 2016-05-12 07:57 | PDOC ---
PROGRESS NOTES Chief Complaint Chief Complaint CC: Suicidal attempt A/P Intentional drug overdose Suicide attempt depression ? Pneumonia Plan Augmentin steroids inpt psychiatry transfer Monitor rash on L upper extremity, local care not ready for DC to home PAT assessment. History of Present Illness History of Present Illness rash on left upper arm no fever episodic confusion Vitals Vitals Vital Signs Date Time Temp Pulse Resp B/P Pulse Ox O2 Delivery O2 Flow Rate FiO2 05/12/16 07:31 97.6 69 17 135/74 94 Nasal Cannula 2.0 97.6 Physical Exam General: Alert, No acute distress, Other (improved alertness, up and walking) Heart: Regular rate, Normal S1, Normal S2, No murmurs Lungs: Clear Abdomen: Normal bowel sounds, Soft, No tenderness Extremities: No cyanosis, No edema Skin: No breakdown Labs LABS Laboratory Tests Test 05/12/16 05:05 White Blood Count 5.8x10^3/uL (4.0-11.0) Red Blood Count 3.69x10^6/uL (3.50-5.40) Hemoglobin 12.0g/dL (12.0-15.5) Hematocrit 34.8% (36.0-47.0) Mean Corpuscular Volume 94fL (79-100) Mean Corpuscular Hemoglobin 33pg (25-35) Mean Corpuscular Hemoglobin Concent 35g/dL (31-37) Red Cell Distribution Width 16.2% (11.5-14.5) Platelet Count 74x10^3/uL (140-400) Neutrophils (%) (Auto) 46% (31-73) Lymphocytes (%) (Auto) 39% (24-48) Monocytes (%) (Auto) 8% (0-9) Eosinophils (%) (Auto) 7% (0-3) Basophils (%) (Auto) 1% (0-3) Neutrophils # (Auto) 2.7x10^3uL (1.8-7.7) Lymphocytes # (Auto) 2.3x10^3/uL (1.0-4.8) Monocytes # (Auto) 0.5x10^3/uL (0.0-1.1) Eosinophils # (Auto) 0.4x10^3/uL (0.0-0.7) Basophils # (Auto) 0.0x10^3/uL (0.0-0.2) Sodium Level 147mmol/L (136-145) Potassium Level 3.5mmol/L (3.5-5.1) Chloride Level 112mmol/L (98-107) Carbon Dioxide Level 30mmol/L (21-32) Anion Gap 5 (6-14) Blood Urea Nitrogen 15mg/dL (7-20) Creatinine 0.5mg/dL (0.6-1.0) Estimated GFR (Cockcroft-Gault) 127.6 Glucose Level 87mg/dL (70-99) Calcium Level 7.8mg/dL (8.5-10.1) Assessment and Plan Assessmemt and Plan Problems Medical Problems: (1) Altered mental status Status: Acute (2) Suicidal overdose Status: Acute Problems: Comment Review of Relevant I have reviewed the following items tamar (where applicable) has been applied. Labs Laboratory Tests Test 05/10/16 11:55 05/11/16 04:25 05/12/16 05:05 Ammonia 65mcmol/L (11-34) White Blood Count 6.8x10^3/uL (4.0-11.0) 5.8x10^3/uL (4.0-11.0) Red Blood Count 3.74x10^6/uL (3.50-5.40) 3.69x10^6/uL (3.50-5.40) Hemoglobin 12.1g/dL (12.0-15.5) 12.0g/dL (12.0-15.5) Hematocrit 35.0% (36.0-47.0) 34.8% (36.0-47.0) Mean Corpuscular Volume 94fL (79-100) 94fL (79-100) Mean Corpuscular Hemoglobin 33pg (25-35) 33pg (25-35) Mean Corpuscular Hemoglobin Concent 35g/dL (31-37) 35g/dL (31-37) Red Cell Distribution Width 16.3% (11.5-14.5) 16.2% (11.5-14.5) Platelet Count 95x10^3/uL (140-400) 74x10^3/uL (140-400) Neutrophils (%) (Auto) 51% (31-73) 46% (31-73) Lymphocytes (%) (Auto) 32% (24-48) 39% (24-48) Monocytes (%) (Auto) 9% (0-9) 8% (0-9) Eosinophils (%) (Auto) 7% (0-3) 7% (0-3) Basophils (%) (Auto) 1% (0-3) 1% (0-3) Neutrophils # (Auto) 3.5x10^3uL (1.8-7.7) 2.7x10^3uL (1.8-7.7) Lymphocytes # (Auto) 2.2x10^3/uL (1.0-4.8) 2.3x10^3/uL (1.0-4.8) Monocytes # (Auto) 0.6x10^3/uL (0.0-1.1) 0.5x10^3/uL (0.0-1.1) Eosinophils # (Auto) 0.5x10^3/uL (0.0-0.7) 0.4x10^3/uL (0.0-0.7) Basophils # (Auto) 0.0x10^3/uL (0.0-0.2) 0.0x10^3/uL (0.0-0.2) Sodium Level 147mmol/L (136-145) 147mmol/L (136-145) Potassium Level 3.5mmol/L (3.5-5.1) 3.5mmol/L (3.5-5.1) Chloride Level 111mmol/L (98-107) 112mmol/L (98-107) Carbon Dioxide Level 32mmol/L (21-32) 30mmol/L (21-32) Anion Gap 4 (6-14) 5 (6-14) Blood Urea Nitrogen 17mg/dL (7-20) 15mg/dL (7-20) Creatinine 0.6mg/dL (0.6-1.0) 0.5mg/dL (0.6-1.0) Estimated GFR (Cockcroft-Gault) 103.4 127.6 Glucose Level 93mg/dL (70-99) 87mg/dL (70-99) Calcium Level 7.8mg/dL (8.5-10.1) 7.8mg/dL (8.5-10.1) Laboratory Tests Test 05/12/16 05:05 White Blood Count 5.8x10^3/uL (4.0-11.0) Red Blood Count 3.69x10^6/uL (3.50-5.40) Hemoglobin 12.0g/dL (12.0-15.5) Hematocrit 34.8% (36.0-47.0) Mean Corpuscular Volume 94fL (79-100) Mean Corpuscular Hemoglobin 33pg (25-35) Mean Corpuscular Hemoglobin Concent 35g/dL (31-37) Red Cell Distribution Width 16.2% (11.5-14.5) Platelet Count 74x10^3/uL (140-400) Neutrophils (%) (Auto) 46% (31-73) Lymphocytes (%) (Auto) 39% (24-48) Monocytes (%) (Auto) 8% (0-9) Eosinophils (%) (Auto) 7% (0-3) Basophils (%) (Auto) 1% (0-3) Neutrophils # (Auto) 2.7x10^3uL (1.8-7.7) Lymphocytes # (Auto) 2.3x10^3/uL (1.0-4.8) Monocytes # (Auto) 0.5x10^3/uL (0.0-1.1) Eosinophils # (Auto) 0.4x10^3/uL (0.0-0.7) Basophils # (Auto) 0.0x10^3/uL (0.0-0.2) Sodium Level 147mmol/L (136-145) Potassium Level 3.5mmol/L (3.5-5.1) Chloride Level 112mmol/L (98-107) Carbon Dioxide Level 30mmol/L (21-32) Anion Gap 5 (6-14) Blood Urea Nitrogen 15mg/dL (7-20) Creatinine 0.5mg/dL (0.6-1.0) Estimated GFR (Cockcroft-Gault) 127.6 Glucose Level 87mg/dL (70-99) Calcium Level 7.8mg/dL (8.5-10.1) Medications Current Medications Ondansetron HCl (Zofran) 4 mg PRN Q8HRS PRN IV NAUSEA/VOMITING; Start 05/05/16 at 01:30; Stop 05/06/16 at 01:29; Status DC Acetaminophen (Tylenol) 650 mg PRN Q4HRS PRN PO FEVER Last administered on 05/05 21:30; Start 05/05/16 at 01:30; Stop 05/06/16 at 01:29; Status DC Lorazepam 1 mg 1 mg 1X ONCE IV Last administered on 05/05/16 01:45; Start 02/09 at 01:45; Stop 05/05/16 at 03:23; Status DC Sodium Chloride (Iv Sodium Chloride 0.9% 1000ml Bag) 1,000 ml @ 100 mls/hr Q10H IV Last administered on 05/08/16 11:33; Start 05/05/16 at 08:00 Folic Acid (Folic Acid) 1 mg DAILY PO Last administered on 05/11/16 07:41; Start 05/05/16 at 09:00 Propranolol HCl (Inderal) 10 mg BID PO Last administered on 05/11/16 22:01; Start 05/05/16 at 09:00 Rifaximin (Xifaxan) 550 mg DAILY PO Last administered on 05/10/16 08:24; Start 05/05/16 at 10:00; Stop 05/10/16 at 21:17; Status DC Pantoprazole Sodium (Protonix) 40 mg DAILYAC PO Last administered on 05/11/16 07:41; Start 05/05/16 at 10:00 Tramadol HCl (Ultram) 50 mg PRN Q6HRS PRN PO PAIN Last administered on 00:43; Start 05/07/16 at 02:15 Albuterol Sulfate (Ventolin Neb Soln) 2.5 mg PRN QID PRN NEB COUGH Last administered on 05/08/16 14:51; Start 05/07/16 at 03:15; Stop 05/08/16 at 17:48 ; Status DC Albuterol/ Ipratropium (Duoneb) 3 ml STK-MED ONCE .ROUTE Last administered on 07:37; Start 05/07/16 at 03:41; Stop 05/07/16 at 03:51; Status DC Amoxicillin/ Clavulanate Potassium (Augmentin 875/ 125mg) 1 tab BID PO Last administered on 05/11/16 22:00; Start 05/08/16 at 18:30 Albuterol Sulfate (Ventolin Neb Soln) 2.5 mg QID NEB Last administered on 06:17; Start 05/08/16 at 21:00 Albuterol Sulfate (Ventolin Neb Soln) 2.5 mg PRN Q2HR PRN NEB DYSPNEA; Start at 17:45 Prednisone (Prednisone) 20 mg DAILY PO Last administered on 05/11/16 07:41; Start 05/08/16 at 18:30 Ondansetron HCl (Zofran) 4 mg PRN Q6HRS PRN IV NAUSEA/VOMITING; Start 05/09/16 at 13:45 Ketorolac Tromethamine (Toradol) 15 mg 1X ONCE IM Last administered on 21:37; Start 05/10/16 at 21:30; Stop 05/10/16 at 21:31; Status DC Acetaminophen (Tylenol) 650 mg PRN Q6HRS PRN PO MILD PAIN / TEMP Last administered on 05/10/16 23:59; Start 05/10/16 at 21:30 Ondansetron HCl (Zofran Odt) 4 mg PRN Q8HRS PRN PO NAUSEA/VOMITING Last administered on 05/11/16 10:00; Start 05/11/16 at 09:45 Active Scripts Active Reported Proair Hfa Inhaler (Albuterol Sulfate) 8.5 Gm Hfa.aer.ad 1 Puff INH Folic Acid 1 Mg Tablet 1 Mg PO Spironolactone 50 Mg Tablet 50 Mg PO Propranolol Hcl 10 Mg Tablet 10 Mg PO Lansoprazole 30 Mg Capsule.dr 30 Mg PO Xifaxan (Rifaximin) 550 Mg Tablet 1 Tab PO Ondansetron Odt (Ondansetron) 4 Mg Tab.rapdis 1 Tab PO Vitals/I & O Vital Sign - Last 24 Hours 05/11/16 05/11/16 05/11/16 05/11/16 11:00 14:51 19:00 20:00 Temp 97.8 97.9 97.7 97.8 97.9 97.7 Pulse 62 83 83 Resp 14 18 B/P 160/88 144/77 145/72 Pulse Ox 91 93 94 O2 Delivery Room Air Room Air Room Air Room Air 05/11/16 05/11/16 05/11/16 05/12/16 20:22 22:01 23:00 00:43 Temp 97.7 97.7 Pulse 68 70 Resp 18 B/P 132/66 134/63 Pulse Ox 91 92 O2 Delivery Room Air Room Air Room Air 05/12/16 05/12/16 05/12/16 03:07 06:18 07:31 Temp 97.7 97.6 97.7 97.6 Pulse 64 69 Resp 18 17 B/P 159/90 135/74 Pulse Ox 91 93 94 O2 Delivery Room Air Room Air Nasal Cannula O2 Flow Rate 2.0 Intake and Output 05/11/16 05/11/16 05/12/16 15:00 23:00 07:00 Intake Total 0 ml 360 ml Balance 0 ml 360 ml MIGUEL ANGEL MENDOZA MD May 12, 2016 07:57
[2016-05-12] MEDS: PREDNISONE 20 MG TABLET PO SCH (08:16)
[2016-05-12] MEDS: AMOXICILLIN/K CLAV 875/125MG TABLET. PO SCH ×2 (08:16→20:23)
[2016-05-12] MEDS: FOLIC ACID 1 MG TABLET PO SCH (08:17)
[2016-05-12] MEDS: PANTOPRAZOLE 40 MG TABLET. PO SCH (08:17)
[2016-05-12] MEDS: IV NORMAL SALINE 1000ML BAG 1,000 ML IV SCH ×3 (08:17→20:00)
[2016-05-12] MEDS: PROPRANOLOL 10 MG TABLET. PO SCH ×2 (08:17→20:25)
[2016-05-12 11:20] VITALS: BP 130/75
[2016-05-12] MEDS: ONDANSETRON ODT 4 MG TAB.RAPDIS PO PRN (13:39)
[2016-05-12 15:27] VITALS: BP 139/83
[2016-05-12 19:24] VITALS: BP 148/69
[2016-05-12 22:01] VITALS: BP 147/64
[2016-05-13] MEDS: ONDANSETRON ODT 4 MG TAB.RAPDIS PO PRN ×2 (01:13→11:14)
[2016-05-13 02:00] VITALS: BP 166/83
[2016-05-13] MEDS: IV NORMAL SALINE 1000ML BAG 1,000 ML IV SCH ×2 (06:00→16:00)
[2016-05-13 06:25] LABS: BASO % 0 % (0-3); EOS % 5 % (0-3); HEMATOCRIT 36.9 % (36.0-47.0); HEMOGLOBIN 12.5 g/dL (12.0-15.5); LYMPH % 28 % (24-48); MEAN CORPUSCULAR HEMOGLOBIN 33 pg (25-35); MEAN CORPUSCULAR HGB CONC 34 g/dL (31-37); MEAN CORPUSCULAR VOLUME 96 fL (79-100); MONO % 8 % (0-9); NEUT % 59 % (31-73); PLATELET COUNT 73 x10^3/uL (140-400); RED BLOOD COUNT 3.85 x10^6/uL (3.50-5.40); RED CELL DISTRIBUTION WIDTH 16.4 % (11.5-14.5); WHITE BLOOD COUNT 7.2 x10^3/uL (4.0-11.0)
[2016-05-13 06:55] LABS: CALCIUM 7.8 mg/dL (8.5-10.1); CREATININE 0.5 mg/dL (0.6-1.0); GFR 127.6; POTASSIUM 3.4 mmol/L (3.5-5.1)
[2016-05-13 07:00] VITALS: BP 156/85
[2016-05-13] MEDS: ALBUTEROL SULFATE 2.5 MG/3 ML NEBU. NEB SCH ×3 (07:08→15:09)
[2016-05-13] MEDS: FOLIC ACID 1 MG TABLET PO SCH (09:11)
[2016-05-13] MEDS: AMOXICILLIN/K CLAV 875/125MG TABLET. PO SCH (09:12)
[2016-05-13] MEDS: PANTOPRAZOLE 40 MG TABLET. PO SCH (09:12)
[2016-05-13] MEDS: PREDNISONE 20 MG TABLET PO SCH (09:12)
[2016-05-13] MEDS: PROPRANOLOL 10 MG TABLET. PO SCH (09:12)
[2016-05-13] MEDS: TRAMADOL 50 MG TABLET. PO PRN (09:28)
[2016-05-13 10:54] VITALS: BP 152/79
[2016-05-13] MEDS ORDERED: AMOX1TAB11 PO (11:18)
[2016-05-13] MEDS ORDERED: POLY17PO5 PO (11:18)
[2016-05-13] MEDS ORDERED: DOCUSATE SODIUM 100 MG CAPSULE PO SCH (11:30)
[2016-05-13] MEDS ORDERED: MAGNESIUM HYDROXIDE 2,400 MG/30 ML ORAL.SUSP. PO ONE (11:30)
[2016-05-13] MEDS ORDERED: POLYETHYLENE GLYCOL 3350 17 GM PACKET. PO PRN (11:30)
[2016-05-13] MEDS ORDERED: POLYETHYLENE GLYCOL 3350 17 GM PACKET. PO ONE (11:30)
--- NOTE | 2016-05-13 12:20 | PDOC ---
PROGRESS NOTES Assessment Problems Medical Problems: (1) Altered mental status Status: Acute (2) Suicidal overdose Status: Acute Encephalopathy due to drug overdose and psychiatric disease Plan She may be transferred to a psychiatric facility from a neurologic perspective Subjective no complaints Objective Vital Signs Date Time Temp Pulse Resp B/P Pulse Ox O2 Delivery O2 Flow Rate FiO2 05/13/16 11:44 Room Air 05/13/16 10:54 97.9 58 18 152/79 92 97.9 05/12/16 15:27 2.0 Intake and Output 05/13/16 07:00 Intake Total 220 ml Balance 220 ml Intake Oral 220 ml # Voids 5 PHYSICAL EXAM Alert. Oriented to time, place and person. PERRL. EOMI. CN: no focal findings. Muscle tone: normal. Muscle strength: 5/5 DTR: 1+ Plantar reflex: flexor Gait: normal Sensory exam: no abnormal findings. No cerebellar signs elicited. Review of Relevant I have reviewed the following items tamar (where applicable) has been applied. Labs Laboratory Tests Test 05/12/16 05:05 05/13/16 05:30 White Blood Count 5.8x10^3/uL (4.0-11.0) 7.2x10^3/uL (4.0-11.0) Red Blood Count 3.69x10^6/uL (3.50-5.40) 3.85x10^6/uL (3.50-5.40) Hemoglobin 12.0g/dL (12.0-15.5) 12.5g/dL (12.0-15.5) Hematocrit 34.8% (36.0-47.0) 36.9% (36.0-47.0) Mean Corpuscular Volume 94fL (79-100) 96fL (79-100) Mean Corpuscular Hemoglobin 33pg (25-35) 33pg (25-35) Mean Corpuscular Hemoglobin Concent 35g/dL (31-37) 34g/dL (31-37) Red Cell Distribution Width 16.2% (11.5-14.5) 16.4% (11.5-14.5) Platelet Count 74x10^3/uL (140-400) 73x10^3/uL (140-400) Neutrophils (%) (Auto) 46% (31-73) 59% (31-73) Lymphocytes (%) (Auto) 39% (24-48) 28% (24-48) Monocytes (%) (Auto) 8% (0-9) 8% (0-9) Eosinophils (%) (Auto) 7% (0-3) 5% (0-3) Basophils (%) (Auto) 1% (0-3) 0% (0-3) Neutrophils # (Auto) 2.7x10^3uL (1.8-7.7) 4.2x10^3uL (1.8-7.7) Lymphocytes # (Auto) 2.3x10^3/uL (1.0-4.8) 2.0x10^3/uL (1.0-4.8) Monocytes # (Auto) 0.5x10^3/uL (0.0-1.1) 0.5x10^3/uL (0.0-1.1) Eosinophils # (Auto) 0.4x10^3/uL (0.0-0.7) 0.4x10^3/uL (0.0-0.7) Basophils # (Auto) 0.0x10^3/uL (0.0-0.2) 0.0x10^3/uL (0.0-0.2) Sodium Level 147mmol/L (136-145) 145mmol/L (136-145) Potassium Level 3.5mmol/L (3.5-5.1) 3.4mmol/L (3.5-5.1) Chloride Level 112mmol/L (98-107) 109mmol/L (98-107) Carbon Dioxide Level 30mmol/L (21-32) 31mmol/L (21-32) Anion Gap 5 (6-14) 5 (6-14) Blood Urea Nitrogen 15mg/dL (7-20) 13mg/dL (7-20) Creatinine 0.5mg/dL (0.6-1.0) 0.5mg/dL (0.6-1.0) Estimated GFR (Cockcroft-Gault) 127.6 127.6 Glucose Level 87mg/dL (70-99) 84mg/dL (70-99) Calcium Level 7.8mg/dL (8.5-10.1) 7.8mg/dL (8.5-10.1) Laboratory Tests Test 05/13/16 05:30 White Blood Count 7.2x10^3/uL (4.0-11.0) Red Blood Count 3.85x10^6/uL (3.50-5.40) Hemoglobin 12.5g/dL (12.0-15.5) Hematocrit 36.9% (36.0-47.0) Mean Corpuscular Volume 96fL (79-100) Mean Corpuscular Hemoglobin 33pg (25-35) Mean Corpuscular Hemoglobin Concent 34g/dL (31-37) Red Cell Distribution Width 16.4% (11.5-14.5) Platelet Count 73x10^3/uL (140-400) Neutrophils (%) (Auto) 59% (31-73) Lymphocytes (%) (Auto) 28% (24-48) Monocytes (%) (Auto) 8% (0-9) Eosinophils (%) (Auto) 5% (0-3) Basophils (%) (Auto) 0% (0-3) Neutrophils # (Auto) 4.2x10^3uL (1.8-7.7) Lymphocytes # (Auto) 2.0x10^3/uL (1.0-4.8) Monocytes # (Auto) 0.5x10^3/uL (0.0-1.1) Eosinophils # (Auto) 0.4x10^3/uL (0.0-0.7) Basophils # (Auto) 0.0x10^3/uL (0.0-0.2) Sodium Level 145mmol/L (136-145) Potassium Level 3.4mmol/L (3.5-5.1) Chloride Level 109mmol/L (98-107) Carbon Dioxide Level 31mmol/L (21-32) Anion Gap 5 (6-14) Blood Urea Nitrogen 13mg/dL (7-20) Creatinine 0.5mg/dL (0.6-1.0) Estimated GFR (Cockcroft-Gault) 127.6 Glucose Level 84mg/dL (70-99) Calcium Level 7.8mg/dL (8.5-10.1) Medications Current Medications Ondansetron HCl (Zofran) 4 mg PRN Q8HRS PRN IV NAUSEA/VOMITING; Start 05/05/16 at 01:30; Stop 05/06/16 at 01:29; Status DC Acetaminophen (Tylenol) 650 mg PRN Q4HRS PRN PO FEVER Last administered on 05/05 21:30; Start 05/05/16 at 01:30; Stop 05/06/16 at 01:29; Status DC Lorazepam 1 mg 1 mg 1X ONCE IV Last administered on 05/05/16 01:45; Start 02/09 at 01:45; Stop 05/05/16 at 03:23; Status DC Sodium Chloride (Iv Sodium Chloride 0.9% 1000ml Bag) 1,000 ml @ 100 mls/hr Q10H IV Last administered on 05/08/16 11:33; Start 05/05/16 at 08:00 Folic Acid (Folic Acid) 1 mg DAILY PO Last administered on 05/13/16 09:11; Start 05/05/16 at 09:00 Propranolol HCl (Inderal) 10 mg BID PO Last administered on 05/13/16 09:12; Start 05/05/16 at 09:00 Rifaximin (Xifaxan) 550 mg DAILY PO Last administered on 05/10/16 08:24; Start 05/05/16 at 10:00; Stop 05/10/16 at 21:17; Status DC Pantoprazole Sodium (Protonix) 40 mg DAILYAC PO Last administered on 05/13/16 09:12; Start 05/05/16 at 10:00 Tramadol HCl (Ultram) 50 mg PRN Q6HRS PRN PO PAIN Last administered on 20:24; Start 05/07/16 at 02:15 Albuterol Sulfate (Ventolin Neb Soln) 2.5 mg PRN QID PRN NEB COUGH Last administered on 05/08/16 14:51; Start 05/07/16 at 03:15; Stop 05/08/16 at 17:48 ; Status DC Albuterol/ Ipratropium (Duoneb) 3 ml STK-MED ONCE .ROUTE Last administered on 07:37; Start 05/07/16 at 03:41; Stop 05/07/16 at 03:51; Status DC Amoxicillin/ Clavulanate Potassium (Augmentin 875/ 125mg) 1 tab BID PO Last administered on 05/13/16 09:12; Start 05/08/16 at 18:30 Albuterol Sulfate (Ventolin Neb Soln) 2.5 mg QID NEB Last administered on 11:43; Start 05/08/16 at 21:00 Albuterol Sulfate (Ventolin Neb Soln) 2.5 mg PRN Q2HR PRN NEB DYSPNEA Last administered on 05/13/16 01:32; Start 05/08/16 at 17:45 Prednisone (Prednisone) 20 mg DAILY PO Last administered on 05/13/16 09:12; Start 05/08/16 at 18:30 Ondansetron HCl (Zofran) 4 mg PRN Q6HRS PRN IV NAUSEA/VOMITING; Start 05/09/16 at 13:45 Ketorolac Tromethamine (Toradol) 15 mg 1X ONCE IM Last administered on 21:37; Start 05/10/16 at 21:30; Stop 05/10/16 at 21:31; Status DC Acetaminophen (Tylenol) 650 mg PRN Q6HRS PRN PO MILD PAIN / TEMP Last administered on 05/10/16 23:59; Start 05/10/16 at 21:30 Ondansetron HCl (Zofran Odt) 4 mg PRN Q8HRS PRN PO NAUSEA/VOMITING Last administered on 05/13/16 11:14; Start 05/11/16 at 09:45 Docusate Sodium (Colace) 100 mg DAILY PO Last administered on 05/13/16 12:05; Start 05/13/16 at 11:30 Magnesium Hydroxide (Milk Of Magnesia) 2,400 mg 1X ONCE PO Last administered on 05/13/16 12:06; Start 05/13/16 at 11:30; Stop 05/13/16 at 11:31; Status DC Polyethylene Glycol (miraLAX PACKET) 17 gm 1X ONCE PO Last administered on 12:06; Start 05/13/16 at 11:30; Stop 05/13/16 at 11:31; Status DC Polyethylene Glycol (miraLAX PACKET) 17 gm PRN DAILY PRN PO CONSTIPATION; Start 05/13/16 at 11:30 Active Scripts Active Miralax (Polyethylene Glycol 3350) 17 Gm Powd.pack 1 Packet PO DAILY Amox Tr-K Clv 875-125 Mg Tab (Amoxicillin/Potassium Clav) 1 Each Tablet 1 Tab PO BID Reported Proair Hfa Inhaler (Albuterol Sulfate) 8.5 Gm Hfa.aer.ad 1 Puff INH Folic Acid 1 Mg Tablet 1 Mg PO Spironolactone 50 Mg Tablet 50 Mg PO Propranolol Hcl 10 Mg Tablet 10 Mg PO Lansoprazole 30 Mg Capsule.dr 30 Mg PO Xifaxan (Rifaximin) 550 Mg Tablet 1 Tab PO Ondansetron Odt (Ondansetron) 4 Mg Tab.rapdis 1 Tab PO Vitals/I & O Vital Sign - Last 24 Hours 05/12/16 05/12/16 05/12/16 05/12/16 15:27 19:24 19:50 20:00 Temp 98.0 97.5 98.0 97.5 Pulse 62 61 Resp 18 B/P 139/83 148/69 Pulse Ox 93 96 93 O2 Delivery Nasal Cannula Room Air Room Air Room Air O2 Flow Rate 2.0 05/12/16 05/12/16 05/12/16 05/13/16 20:24 20:25 22:01 01:34 Temp 98.6 98.6 Pulse 60 80 Resp 20 B/P 147/74 147/64 Pulse Ox 94 92 O2 Delivery Room Air Room Air Room Air 05/13/16 05/13/16 05/13/16 05/13/16 02:00 07:00 07:08 09:12 Temp 97.3 97.7 97.3 97.7 Pulse 53 73 73 Resp 18 B/P 166/83 156/85 156/85 Pulse Ox 96 94 O2 Delivery Room Air Room Air Room Air 05/13/16 05/13/16 10:54 11:44 Temp 97.9 97.9 Pulse 58 Resp 18 B/P 152/79 Pulse Ox 92 O2 Delivery Room Air Room Air Intake and Output 05/12/16 05/12/16 05/13/16 15:00 23:00 07:00 Intake Total 220 ml Balance 220 ml BETH CASTRO MD May 13, 2016 12:20
--- NOTE | 2016-05-13 12:24 | PDOC ---
PULMONARY PROGRESS NOTES Subjective more alert, has cough, sob is better off o2, no pain, is tired Vitals Vital Signs Date Time Temp Pulse Resp B/P Pulse Ox O2 Delivery O2 Flow Rate FiO2 05/13/16 11:44 Room Air 05/13/16 10:54 97.9 58 18 152/79 92 97.9 05/12/16 15:27 2.0 Comments ros as mentioned as above other sys otherwise neg General: Alert, Lethargic HEENT: Other (nc at perrl ) Lungs: Clear Cardiovascular: S1, S2 Abdomen: Soft Neuro Exam: Alert Extremities: No Edema Skin: Warm Labs Laboratory Tests Test 05/12/16 05:05 05/13/16 05:30 White Blood Count 5.8x10^3/uL (4.0-11.0) 7.2x10^3/uL (4.0-11.0) Red Blood Count 3.69x10^6/uL (3.50-5.40) 3.85x10^6/uL (3.50-5.40) Hemoglobin 12.0g/dL (12.0-15.5) 12.5g/dL (12.0-15.5) Hematocrit 34.8% (36.0-47.0) 36.9% (36.0-47.0) Mean Corpuscular Volume 94fL (79-100) 96fL (79-100) Mean Corpuscular Hemoglobin 33pg (25-35) 33pg (25-35) Mean Corpuscular Hemoglobin Concent 35g/dL (31-37) 34g/dL (31-37) Red Cell Distribution Width 16.2% (11.5-14.5) 16.4% (11.5-14.5) Platelet Count 74x10^3/uL (140-400) 73x10^3/uL (140-400) Neutrophils (%) (Auto) 46% (31-73) 59% (31-73) Lymphocytes (%) (Auto) 39% (24-48) 28% (24-48) Monocytes (%) (Auto) 8% (0-9) 8% (0-9) Eosinophils (%) (Auto) 7% (0-3) 5% (0-3) Basophils (%) (Auto) 1% (0-3) 0% (0-3) Neutrophils # (Auto) 2.7x10^3uL (1.8-7.7) 4.2x10^3uL (1.8-7.7) Lymphocytes # (Auto) 2.3x10^3/uL (1.0-4.8) 2.0x10^3/uL (1.0-4.8) Monocytes # (Auto) 0.5x10^3/uL (0.0-1.1) 0.5x10^3/uL (0.0-1.1) Eosinophils # (Auto) 0.4x10^3/uL (0.0-0.7) 0.4x10^3/uL (0.0-0.7) Basophils # (Auto) 0.0x10^3/uL (0.0-0.2) 0.0x10^3/uL (0.0-0.2) Sodium Level 147mmol/L (136-145) 145mmol/L (136-145) Potassium Level 3.5mmol/L (3.5-5.1) 3.4mmol/L (3.5-5.1) Chloride Level 112mmol/L (98-107) 109mmol/L (98-107) Carbon Dioxide Level 30mmol/L (21-32) 31mmol/L (21-32) Anion Gap 5 (6-14) 5 (6-14) Blood Urea Nitrogen 15mg/dL (7-20) 13mg/dL (7-20) Creatinine 0.5mg/dL (0.6-1.0) 0.5mg/dL (0.6-1.0) Estimated GFR (Cockcroft-Gault) 127.6 127.6 Glucose Level 87mg/dL (70-99) 84mg/dL (70-99) Calcium Level 7.8mg/dL (8.5-10.1) 7.8mg/dL (8.5-10.1) Laboratory Tests Test 05/13/16 05:30 White Blood Count 7.2x10^3/uL (4.0-11.0) Red Blood Count 3.85x10^6/uL (3.50-5.40) Hemoglobin 12.5g/dL (12.0-15.5) Hematocrit 36.9% (36.0-47.0) Mean Corpuscular Volume 96fL (79-100) Mean Corpuscular Hemoglobin 33pg (25-35) Mean Corpuscular Hemoglobin Concent 34g/dL (31-37) Red Cell Distribution Width 16.4% (11.5-14.5) Platelet Count 73x10^3/uL (140-400) Neutrophils (%) (Auto) 59% (31-73) Lymphocytes (%) (Auto) 28% (24-48) Monocytes (%) (Auto) 8% (0-9) Eosinophils (%) (Auto) 5% (0-3) Basophils (%) (Auto) 0% (0-3) Neutrophils # (Auto) 4.2x10^3uL (1.8-7.7) Lymphocytes # (Auto) 2.0x10^3/uL (1.0-4.8) Monocytes # (Auto) 0.5x10^3/uL (0.0-1.1) Eosinophils # (Auto) 0.4x10^3/uL (0.0-0.7) Basophils # (Auto) 0.0x10^3/uL (0.0-0.2) Sodium Level 145mmol/L (136-145) Potassium Level 3.4mmol/L (3.5-5.1) Chloride Level 109mmol/L (98-107) Carbon Dioxide Level 31mmol/L (21-32) Anion Gap 5 (6-14) Blood Urea Nitrogen 13mg/dL (7-20) Creatinine 0.5mg/dL (0.6-1.0) Estimated GFR (Cockcroft-Gault) 127.6 Glucose Level 84mg/dL (70-99) Calcium Level 7.8mg/dL (8.5-10.1) Medications Active Scripts Medications Dose Route/Sig Days Date Category Proair Hfa Inhaler (Albuterol Sulfate) 8.5 Gm Hfa.aer.ad 1 Puff INH 05/05/16 Reported Folic Acid 1 Mg Tablet 1 Mg PO 05/05/16 Reported Spironolactone 50 Mg Tablet 50 Mg PO 05/05/16 Reported Propranolol Hcl 10 Mg Tablet 10 Mg PO 05/05/16 Reported Lansoprazole 30 Mg Capsule.dr 30 Mg PO 05/05/16 Reported Xifaxan (Rifaximin) 550 Mg Tablet 1 Tab PO 05/05/16 Reported Ciprofloxacin Hcl 500 Mg Tablet 1 Tab PO 05/05/16 Reported Ondansetron Odt (Ondansetron) 4 Mg Tab.rapdis 1 Tab PO 05/05/16 Reported Comments cxr reviewed. Impression . 1. Abnormal x-ray, possible pneumonia. 2. Acute exacerbation of chronic obstructive pulmonary disease. 3. Suicide attempt. 4. Acute hypercapnic respiratory failure. Plan . 1. Avoid over sedation. 2. Augmentin p.o. for total of 7 days. 3. Nebulized treatments. 4. Oxygen supplementation. 5. elevate hob 6. prednisone w taper by 10 mg q 3d. discussed w pt and rn will sign off but available for any help. SHANTELL PAL MD May 13, 2016 12:24
[2016-05-13 14:58] VITALS: BP 164/91
--- NOTE | 2016-05-13 16:20 | PDOC3 ---
Discharge Summary Visit Information Date of Admission: May 05, 2016 Date of Discharge: May 13, 2016 Admitting Diagnosis: suidice attempt Final Diagnosis COPD, Acute bronchitis, w/ hypercarbia Intentional drug overdose Suicide attempt depression Pneumonia metabolic encephalopathy thrombocytopenia Problems Medical Problems: (1) Altered mental status Status: Acute (2) Suicidal overdose Status: Acute Brief Hospital Course Allergies Allergies Coded Allergies Type Severity Reaction Last Updated Verified azithromycin Allergy Intermediate 05/05/16 Yes diphenhydramine Allergy Intermediate 05/05/16 Yes morphine Allergy Intermediate 05/05/16 Yes Vital Signs Vital Signs Date Time Temp Pulse Resp B/P Pulse Ox O2 Delivery O2 Flow Rate FiO2 05/13/16 15:10 Room Air 05/13/16 14:58 97.7 63 18 164/91 92 97.7 05/12/16 15:27 2.0 Lab Results Laboratory Tests Test 05/12/16 05:05 05/13/16 05:30 White Blood Count 5.8x10^3/uL (4.0-11.0) 7.2x10^3/uL (4.0-11.0) Red Blood Count 3.69x10^6/uL (3.50-5.40) 3.85x10^6/uL (3.50-5.40) Hemoglobin 12.0g/dL (12.0-15.5) 12.5g/dL (12.0-15.5) Hematocrit 34.8% (36.0-47.0) 36.9% (36.0-47.0) Mean Corpuscular Volume 94fL (79-100) 96fL (79-100) Mean Corpuscular Hemoglobin 33pg (25-35) 33pg (25-35) Mean Corpuscular Hemoglobin Concent 35g/dL (31-37) 34g/dL (31-37) Red Cell Distribution Width 16.2% (11.5-14.5) 16.4% (11.5-14.5) Platelet Count 74x10^3/uL (140-400) 73x10^3/uL (140-400) Neutrophils (%) (Auto) 46% (31-73) 59% (31-73) Lymphocytes (%) (Auto) 39% (24-48) 28% (24-48) Monocytes (%) (Auto) 8% (0-9) 8% (0-9) Eosinophils (%) (Auto) 7% (0-3) 5% (0-3) Basophils (%) (Auto) 1% (0-3) 0% (0-3) Neutrophils # (Auto) 2.7x10^3uL (1.8-7.7) 4.2x10^3uL (1.8-7.7) Lymphocytes # (Auto) 2.3x10^3/uL (1.0-4.8) 2.0x10^3/uL (1.0-4.8) Monocytes # (Auto) 0.5x10^3/uL (0.0-1.1) 0.5x10^3/uL (0.0-1.1) Eosinophils # (Auto) 0.4x10^3/uL (0.0-0.7) 0.4x10^3/uL (0.0-0.7) Basophils # (Auto) 0.0x10^3/uL (0.0-0.2) 0.0x10^3/uL (0.0-0.2) Sodium Level 147mmol/L (136-145) 145mmol/L (136-145) Potassium Level 3.5mmol/L (3.5-5.1) 3.4mmol/L (3.5-5.1) Chloride Level 112mmol/L (98-107) 109mmol/L (98-107) Carbon Dioxide Level 30mmol/L (21-32) 31mmol/L (21-32) Anion Gap 5 (6-14) 5 (6-14) Blood Urea Nitrogen 15mg/dL (7-20) 13mg/dL (7-20) Creatinine 0.5mg/dL (0.6-1.0) 0.5mg/dL (0.6-1.0) Estimated GFR (Cockcroft-Gault) 127.6 127.6 Glucose Level 87mg/dL (70-99) 84mg/dL (70-99) Calcium Level 7.8mg/dL (8.5-10.1) 7.8mg/dL (8.5-10.1) Laboratory Tests Test 3/20/17 05:30 White Blood Count 7.2x10^3/uL (4.0-11.0) Red Blood Count 3.85x10^6/uL (3.50-5.40) Hemoglobin 12.5g/dL (12.0-15.5) Hematocrit 36.9% (36.0-47.0) Mean Corpuscular Volume 96fL (79-100) Mean Corpuscular Hemoglobin 33pg (25-35) Mean Corpuscular Hemoglobin Concent 34g/dL (31-37) Red Cell Distribution Width 16.4% (11.5-14.5) Platelet Count 73x10^3/uL (140-400) Neutrophils (%) (Auto) 59% (31-73) Lymphocytes (%) (Auto) 28% (24-48) Monocytes (%) (Auto) 8% (0-9) Eosinophils (%) (Auto) 5% (0-3) Basophils (%) (Auto) 0% (0-3) Neutrophils # (Auto) 4.2x10^3uL (1.8-7.7) Lymphocytes # (Auto) 2.0x10^3/uL (1.0-4.8) Monocytes # (Auto) 0.5x10^3/uL (0.0-1.1) Eosinophils # (Auto) 0.4x10^3/uL (0.0-0.7) Basophils # (Auto) 0.0x10^3/uL (0.0-0.2) Sodium Level 145mmol/L (136-145) Potassium Level 3.4mmol/L (3.5-5.1) Chloride Level 109mmol/L (98-107) Carbon Dioxide Level 31mmol/L (21-32) Anion Gap 5 (6-14) Blood Urea Nitrogen 13mg/dL (7-20) Creatinine 0.5mg/dL (0.6-1.0) Estimated GFR (Cockcroft-Gault) 127.6 Glucose Level 84mg/dL (70-99) Calcium Level 7.8mg/dL (8.5-10.1) Brief Hospital Course Ms. Glass is a 55 old admitted for a Seroquel overdose. She is mourning the of 2 of her daughters in the past 2 years, and has long-standing bipolar disorder. She also had PNA, treated with abx, and steroid burst, much better at DC cont Augmetin a few more days Discharge Information Condition at Discharge: Improved Follow Up: Weeks Disposition/Orders: D/C to Home Scheduled Amoxicillin/Potassium Clav (Amox Tr-K Clv 875-125 Mg Tab) 1 TAB PO BID Polyethylene Glycol 3350 (Miralax) 1 PACKET PO DAILY Miscellaneous Medications Albuterol Sulfate (Proair Hfa Inhaler) 1 PUFF INH (Reported) Folic Acid (Folic Acid) 1 MG PO (Reported) Lansoprazole (Lansoprazole) 30 MG PO (Reported) Ondansetron (Ondansetron Odt) 1 TAB PO (Reported) Propranolol Hcl (Propranolol Hcl) 10 MG PO (Reported) Rifaximin (Xifaxan) 1 TAB PO (Reported) Spironolactone (Spironolactone) 50 MG PO (Reported) Discontinued Medications Ciprofloxacin Hcl (Ciprofloxacin Hcl) 1 TAB PO (Reported) Patient Instructions Patient Instructions cleared by PAT team to go home, f/u Psych, discussed with Ronan time > 30 min LIZ COULTER MD May 13, 2016 16:20
--- NOTE | 2016-05-15 12:51 | DS ---
DATE OF DISCHARGE: 05/13/2016 ADMISSION DIAGNOSES: Drug overdose with Seroquel and depression. DISCHARGE DIAGNOSIS: Resolving drug overdose. HOSPITAL COURSE: The patient is a pleasant 55-year-old female who presented with some drug overdose with Seroquel. She was admitted. We consulted psychiatric assessment and we watched her for several days. She was a little sleepy. We were concerned that she could have some other underlying disease, but we checked ammonia levels and narcotic levels and gave her Narcan. We scanned her brain. We consulted Neurology and really never found anything. Neurology feels like this is a psychiatric-induced psychosis and sedation. We plan to discharge to inpatient psych. DISPOSITION: Inpatient psych. ACTIVITY: As tolerated. DIET: Low sodium. MEDICATIONS: Please see the MRAD. TOTAL TIME ON DISCHARGE: 38 minutes. SIRISHA LEMONS DO DR: GULSHAN/annita JOB#: [id number] / [id number]
== END 2016-05-13 19:09 | disposition home or self-care (01) | DRG 917 ==
LOC: ER 00:14 → 1 WEST ICU 01:00 → 5 SOUTH 05-06 16:50
PROVIDERS: ADMIT Internal Medicine; ATTEND Internal Medicine
DX: T43.592A Poisoning by other antipsychotics and neuroleptics, intentional self-harm, initial encounter (principal); E43 Unspecified severe protein-calorie malnutrition; G92 Toxic encephalopathy; J18.9 Pneumonia, unspecified organism; J96.01 Acute respiratory failure with hypoxia; J96.02 Acute respiratory failure with hypercapnia; J44.0 Chronic obstructive pulmonary disease with (acute) lower respiratory infection; J44.1 Chronic obstructive pulmonary disease with (acute) exacerbation; K21.9 Gastro-esophageal reflux disease without esophagitis; I10 Essential (primary) hypertension; F43.10 Post-traumatic stress disorder, unspecified; J20.9 Acute bronchitis, unspecified; J45.909 Unspecified asthma, uncomplicated; K58.9 Irritable bowel syndrome, unspecified; K74.60 Unspecified cirrhosis of liver; F31.9 Bipolar disorder, unspecified; F17.200 Nicotine dependence, unspecified, uncomplicated; D69.6 Thrombocytopenia, unspecified; Z68.30 Body mass index [BMI] 30.0-30.9, adult; Z81.8 Family history of other mental and behavioral disorders; Z88.5 Allergy status to narcotic agent; Z88.1 Allergy status to other antibiotic agents; Z88.8 Allergy status to other drugs, medicaments and biological substances; Y92.89 Other specified places as the place of occurrence of the external cause
CPT/HCPCS: 36415; 36600; 70450; 71010; 80048; 80053; 80076; 82140; 82805; 85027; 85610; 87641; 93005; 94250; 94640; 94760; 96374; G0480; G6038; J1885; J2060; J7030; J7512; J7620; Q0162; 80196; 97116; 97530; 97535; 99285-25

== ENCOUNTER 2017-04-15 15:11 | Emergency (ER) | payer OTHER ==
[2017-04-15] MEDS: methylPREDNISolone SOD SUCC PF 125 MG/2 ML VIAL. IV ×2 (16:20)
[2017-04-15 16:22] LABS: ADD MAN DIFF? NO
[2017-04-15 16:25] LABS: BASO % 1 % (0-3); EOS # 0.4 x10^3/uL (0.0-0.7); EOS % 6 % (0-3); HEMATOCRIT 35.4 % (36.0-47.0); HEMOGLOBIN 11.9 g/dL (12.0-15.5); LYMPH # 1.4 x10^3/uL (1.0-4.8); LYMPH % 24 % (24-48); MEAN CORPUSCULAR HEMOGLOBIN 32 pg (25-35); MEAN CORPUSCULAR HGB CONC 34 g/dL (31-37); MEAN CORPUSCULAR VOLUME 96 fL (79-100); MONO # 0.6 x10^3/uL (0.0-1.1); MONO % 10 % (0-9); NEUT # 3.4 x10^3uL (1.8-7.7); NEUT % 59 % (31-73); PLATELET COUNT 101 x10^3/uL (140-400); RED BLOOD COUNT 3.68 x10^6/uL (3.50-5.40); RED CELL DISTRIBUTION WIDTH 14.9 % (11.5-14.5); WHITE BLOOD COUNT 5.8 x10^3/uL (4.0-11.0)
[2017-04-15 16:34] LABS: BLOOD UREA NITROGEN 17 mg/dL (7-20); BUN/CREATININE RATIO 24 (6-20); CARBON DIOXIDE 38 mmol/L (21-32); CHLORIDE 108 mmol/L (98-107); CREATININE 0.7 mg/dL (0.6-1.0); GFR 86.2; GLUCOSE 98 mg/dL (70-99); POTASSIUM 4.3 mmol/L (3.5-5.1); SODIUM 144 mmol/L (136-145)
[2017-04-15 16:40] LABS: ALBUMIN 1.5 g/dL (3.4-5.0); ALBUMIN/GLOBULIN RATIO 0.5 (1.0-1.7); ALK PHOS 143 U/L (46-116); ALT (SGPT) 31 U/L (14-59); AST (SGOT) 55 U/L (15-37); LIPASE 311 U/L (73-393); TOTAL BILIRUBIN 0.7 mg/dL (0.2-1.0); TOTAL PROTEIN 4.7 g/dL (6.4-8.2)
[2017-04-15 16:42] LABS: TROPONINI < 0.017 ng/mL (0.000-0.055)
[2017-04-15 16:46] LABS: NT-PRO BNP 215 pg/mL (0-124)
== END 2017-04-15 19:57 | disposition home or self-care (01) ==
LOC: ER 15:11
DX: J44.1 Chronic obstructive pulmonary disease with (acute) exacerbation (principal); K21.9 Gastro-esophageal reflux disease without esophagitis; I10 Essential (primary) hypertension; F43.10 Post-traumatic stress disorder, unspecified; F32.9 Major depressive disorder, single episode, unspecified
CPT/HCPCS: 36415; 36600; 71045; 80053; 83690; 83880; 84484; 85025; 93005; 96374; 99285-25; J2930

== ENCOUNTER 2017-12-17 15:15 | Inpatient (IN) | payer OTHER ==
[~2017-12-17] VITALS: Ht 170.2 cm; Wt 100.2 kg
[~2017-12-17 15:15] MED LIST: AMOX1TAB11 PO; CIPR500T PO; FOLI1TAB16 PO; LANS30CA PO; ONDA4TAB12 PO; POLY17PO29 PO; PRED50TA PO; PROAIR HFA8.5 GM INH; PROP10TA PO; RIFA550T4 PO; SPIR50TA4 PO
[2017-12-17] MEDS ORDERED: IV NORMAL SALINE 1000ML BAG 1,000 ML IV SCH (15:27)
[2017-12-17 15:42] LABS: BASO # 0.1 x10^3/uL (0.0-0.2); BASO % 1 % (0-3); EOS # 0.1 x10^3/uL (0.0-0.7); EOS % 2 % (0-3); HEMATOCRIT 38.9 % (36.0-47.0); HEMOGLOBIN 13.4 g/dL (12.0-15.5); LYMPH % 14 % (24-48); MEAN CORPUSCULAR HEMOGLOBIN 33 pg (25-35); MEAN CORPUSCULAR HGB CONC 34 g/dL (31-37); MEAN CORPUSCULAR VOLUME 95 fL (79-100); MONO # 0.6 x10^3/uL (0.0-1.1); MONO % 7 % (0-9); NEUT # 5.7 x10^3uL (1.8-7.7); NEUT % 77 % (31-73); PLATELET COUNT 110 x10^3/uL (140-400); RED BLOOD COUNT 4.09 x10^6/uL (3.50-5.40); RED CELL DISTRIBUTION WIDTH 15.1 % (11.5-14.5); WHITE BLOOD COUNT 7.4 x10^3/uL (4.0-11.0)
--- NOTE | 2017-12-17 15:44 | PHYS DOC ---
Past Medical History Past Medical History: Asthma, Depression, GERD, Hypertension, Other Additional Past Medical Histor: PTSD, CIRRHOSIS,HEP C Past Surgical History: Other Additional Past Surgical Histo: UNKNOWN - STENT IN LIVER Alcohol Use: None Drug Use: None Adult General Chief Complaint Chief Complaint: CHEST PAIN HPI HPI Patient is a 57-year-old female, who apparently has a history of liver disease as well as other health problems, who presents to the emergency department for evaluation. She states the past week she has been having waxing and waning anterior chest pain. She also appears markedly dyspneic. She is noted to be somewhat tachycardic upon arrival. She has not had any nausea or vomiting and denies any abdominal pain. She states she has had increasing dyspnea on exertion. She has not had any exacerbation of her chest pain with exertion. Deep breathing seems to worsen her pain. She has not had any new abdominal pain. She has not had any nausea or vomiting. There are no alleviating, or exacerbating factors to her symptoms. Review of Systems Review of Systems Constitutional: Denies fever or chills [] Eyes: Denies change in visual acuity, redness, or eye pain [] HENT: Denies nasal congestion or sore throat [] Respiratory: Denies cough and shortness of breath but does appear dyspneic.[] Cardiovascular: No additional information not addressed in HPI [] GI: Denies abdominal pain, nausea, vomiting, bloody stools or diarrhea [] : Denies dysuria or hematuria [] Musculoskeletal: Denies back pain or joint pain [] Integument: Denies rash or skin lesions [] Neurologic: Denies headache, focal weakness or sensory changes [] Endocrine: Denies polyuria or polydipsia [] All other systems were reviewed and found to be within normal limits, except as documented in this note. Current Medications Current Medications Current Medications Medications (Trade) Dose Ordered Sig/Sarah Start Time Stop Time Status Last Admin Dose Admin Fentanyl Citrate (Fentanyl 2ml Vial) 50 mcg 1X ONCE 12/17/17 16:45 12/17/17 16:50 DC Info (CONTRAST GIVEN -- Rx MONITORING) 1 each PRN DAILY PRN 12/17/17 16:00 12/19/17 15:59 Iohexol (Omnipaque 300 Mg/ml) 75 ml 1X ONCE 12/17/17 16:00 12/17/17 16:01 DC 12/17/17 16:06 75 ML Ondansetron HCl (Zofran) 4 mg 1X ONCE 12/17/17 17:00 12/17/17 17:01 Sodium Chloride 1,000 ml @ 100 mls/hr Q10H 12/17/17 15:27 12/18/17 01:26 12/17/17 15:39 100 MLS/HR Allergies Allergies Allergies Coded Allergies Type Severity Reaction Last Updated Verified azithromycin Allergy Intermediate 05/05/16 Yes diphenhydramine Allergy Intermediate 05/05/16 Yes morphine Allergy Intermediate 05/05/16 Yes Physical Exam Physical Exam PHYSICAL EXAM: CONSTITUTIONAL: Well developed, well nourished HEAD: normocephalic, atraumatic EENT: PERRL, EOMI. Conjunctivae normal color, sclerae non-icteric; moist mucous membranes. NECK: Supple, non-tender; no meningismus. LUNGS: Lungs are clear. The patient is moderately tachypneic. Breathing is rapid , shallow but unlabored. HEART: Regular rate and rhythm, no murmur CHEST: No deformity; there is diffuse tenderness to palpation of the anterior chest wall, which reproduces the patient's pain. ABDOMEN: The abdomen is soft, and non-tender, no masses or bruits. EXTREM: Normal ROM; no deformity, no calf tenderness. Normal pulses palpable in all extremities. There is no pedal edema. SKIN: No rash; no diaphoresis NEURO: Alert; normal speech and cognition; CN's grossly intact; strength grossly intact without focal deficit. BACK: No CVA TTP. Current Patient Data Vital Signs Vital Signs Date Time Temp Pulse Resp B/P (MAP) Pulse Ox O2 Delivery O2 Flow Rate FiO2 12/17/17 16:17 94 Nasal Cannula 2.0 12/17/17 15:15 98.0 111 16 165/83 (110) 98.0 Lab Values Laboratory Tests Test 12/17/17 15:30 12/17/17 16:10 White Blood Count 7.4 x10^3/uL (4.0-11.0) Red Blood Count 4.09 x10^6/uL (3.50-5.40) Hemoglobin 13.4 g/dL (12.0-15.5) Hematocrit 38.9 % (36.0-47.0) Mean Corpuscular Volume 95 fL (79-100) Mean Corpuscular Hemoglobin 33 pg (25-35) Mean Corpuscular Hemoglobin Concent 34 g/dL (31-37) Red Cell Distribution Width 15.1 % (11.5-14.5) H Platelet Count 110 x10^3/uL (140-400) L Neutrophils (%) (Auto) 77 % (31-73) H Lymphocytes (%) (Auto) 14 % (24-48) L Monocytes (%) (Auto) 7 % (0-9) Eosinophils (%) (Auto) 2 % (0-3) Basophils (%) (Auto) 1 % (0-3) Neutrophils # (Auto) 5.7 x10^3uL (1.8-7.7) Lymphocytes # (Auto) 1.0 x10^3/uL (1.0-4.8) Monocytes # (Auto) 0.6 x10^3/uL (0.0-1.1) Eosinophils # (Auto) 0.1 x10^3/uL (0.0-0.7) Basophils # (Auto) 0.1 x10^3/uL (0.0-0.2) Prothrombin Time 14.6 SEC (11.7-14.0) H Prothrombin Time INR 1.2 (0.8-1.1) H Sodium Level 141 mmol/L (136-145) Potassium Level 4.1 mmol/L (3.5-5.1) Chloride Level 106 mmol/L (98-107) Carbon Dioxide Level 30 mmol/L (21-32) Anion Gap 5 (6-14) L Blood Urea Nitrogen 18 mg/dL (7-20) Creatinine 0.8 mg/dL (0.6-1.0) Estimated GFR (Cockcroft-Gault) 73.7 BUN/Creatinine Ratio 23 (6-20) H Glucose Level 106 mg/dL (70-99) H Calcium Level 8.7 mg/dL (8.5-10.1) Magnesium Level 1.7 mg/dL (1.8-2.4) L Total Bilirubin 1.5 mg/dL (0.2-1.0) H Aspartate Amino Transferase (AST) 61 U/L (15-37) H Alanine Aminotransferase (ALT) 35 U/L (14-59) Alkaline Phosphatase 123 U/L (46-116) H Ammonia 53 mcmol/L (11-34) H Creatine Kinase 77 U/L (26-192) Creatine Kinase MB (Mass) 0.7 ng/mL (0.0-3.6) Creatine Kinase MB Relative Index 0.9 % (0-4) Troponin I Quantitative < 0.017 ng/mL (0.000-0.055) ZE-Kdl-H-Type Natriuretic Peptide 112 pg/mL (0-124) Total Protein 5.4 g/dL (6.4-8.2) L Albumin 1.7 g/dL (3.4-5.0) L Albumin/Globulin Ratio 0.5 (1.0-1.7) L Lipase 136 U/L (73-393) O2 Saturation 94 % (92-99) Arterial Blood pH 7.39 (7.35-7.45) Arterial Blood pCO2 at Patient Temp 41 mmHg (35-46) Arterial Blood pO2 at Patient Temp 72 mmHg (75-108) L Arterial Blood HCO3 25 mmol/L (21-28) Arterial Blood Base Excess 0 mmol/L (-3-3) Oxyhemoglobin 93.0 % Methemoglobin 0.7 % (0.0-1.9) Carbon Monoxide, Quantitative 0.3 % (0.0-1.9) FiO2 28 Laboratory Tests 12/17/17 15:30 Laboratory Tests 12/17/17 15:30 EKG EKG [Sinus tachycardia at a rate of 112 bpm with occasional PVCs, normal axis, normal intervals. There are nonspecific ST/T changes without acute ischemic changes noted.] Radiology/Procedures Radiology/Procedures [PROCEDURE: CT ANGIOGRAPHY CHEST CT pulmonary angiogram with intravenous contrast History: Chest pain shortness air for 4 days Comparison: None. Technique: CT angiogram of the chest with attention to the pulmonary arteries was performed after the administration of intravenous contrast, 75 mL Omnipaque-300. Axial 2-D reconstructions were obtained. Coronal 3-D MIPS were obtained of the chest. Exposure: One or more of the following individualized dose reduction techniques were utilized for this examination: 1. Automated exposure control 2. Adjustment of the mA and/or kV according to patient size 3. Use of iterative reconstruction technique Findings: Pulmonary arteries are adequately opacified. There is motion artifact at multiple levels. There is no evidence of proximal segmental or larger pulmonary embolism. Scattered intraluminal secretions can be seen involving the trachea. No pneumothorax is identified. Small-moderate right and small left pleural effusions are seen. Dependent density involving both lungs is compatible with atelectasis. No mediastinal lymphadenopathy is seen. Thoracic aorta has normal caliber. Heart and pericardium are unremarkable. Coronary artery calcifications are seen. Images of upper abdomen demonstrate TIPS. Ascites is incompletely seen. Spleen is incompletely visualized, but may be enlarged there is a calcification. Impression: 1. Limited by motion. No proximal segmental or larger pulmonary embolus identified. 2. Small-moderate right and small left pleural effusions. 3. Tips. Ascites. Suspect splenomegaly.] PROCEDURE: PORTABLE CHEST 1V Portable chest, 12/17/2017: HISTORY: Chest pain with shortness of breath Comparison is made to a study from 04/15/2017. The heart size and pulmonary vascularity are normal. No pulmonary infiltrate is seen. Pleural effusions, right greater than left, evident on the current CT study are not clearly demonstrated radiographically due to their subpulmonic locations. IMPRESSION: 1. Bilateral pleural effusions, better demonstrated on the current CT study. 2. No acute pulmonary infiltrates. Course & Med Decision Making Course & Med Decision Making Pertinent Labs and Imaging studies reviewed. (See chart for details) [4:55 PM: The patient still feels somewhat dyspneic. She appears tachypneic still although her blood gas appears benign. imaging shows pleural effusions and ascites, not unexpected given the patient's history of liver disease. The patient states that she takes lactulose but did not take her morning dose today. I discussed the case with the hospitalist will admit the patient for further evaluation and treatment.] Dragon Disclaimer Dragon Disclaimer This electronic medical record was generated, in whole or in part, using a voice recognition dictation system. Departure Departure Impression: Primary Impression: Chest pain Additional Impressions: Shortness of breath Cirrhosis of liver Disposition: ADMITTED INPATIENT Admitting Physician: Ramila Gibson Condition: STABLE Referrals: ILDA WILKINS MD (PCP) Problem Qualifiers ERIK PARRA MD Dec 17, 2017 15:44
[2017-12-17 15:49] LABS: PROTHROMBIN TIME PATIENT 14.6 SEC (11.7-14.0)
[2017-12-17 15:52] LABS: CALCIUM 8.7 mg/dL (8.5-10.1); CREATININE 0.8 mg/dL (0.6-1.0); GFR 73.7; POTASSIUM 4.1 mmol/L (3.5-5.1)
[2017-12-17 15:58] LABS: ALBUMIN 1.7 g/dL (3.4-5.0); ALBUMIN/GLOBULIN RATIO 0.5 (1.0-1.7); MAGNESIUM 1.7 mg/dL (1.8-2.4); TOTAL BILIRUBIN 1.5 mg/dL (0.2-1.0); TOTAL PROTEIN 5.4 g/dL (6.4-8.2)
[2017-12-17] MEDS ORDERED: CONTRAST GIVEN. MC PRN (16:00)
[2017-12-17] MEDS ORDERED: IOHEXOL 300 MG/ML 100ML VIAL. IV ONE (16:00)
--- NOTE | 2017-12-17 16:05 | EKG ---
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
--- NOTE | 2017-12-17 16:15 | RAD ---
Portable chest, 12/17/2017: HISTORY: Chest pain with shortness of breath Comparison is made to a study from 04/15/2017. The heart size and pulmonary vascularity are normal. No pulmonary infiltrate is seen. Pleural effusions, right greater than left, evident on the current CT study are not clearly demonstrated radiographically due to their subpulmonic locations. IMPRESSION: 1. Bilateral pleural effusions, better demonstrated on the current CT study. 2. No acute pulmonary infiltrates. Electronically signed by: Sarath Melendez MD (12/17/2017 4:12 PM) [facility]
[2017-12-17 16:22] LABS: BASE EXCESS COOX 0 mmol/L (-3-3); HCO3 COOX 25 mmol/L (21-28); METHEMOGLOBIN 0.7 % (0.0-1.9); PCO2 COOX 41 mmHg (35-46); PO2 COOX 72 mmHg (75-108); SAT O2 COOX 94 % (92-99)
--- NOTE | 2017-12-17 16:27 | RAD ---
CT pulmonary angiogram with intravenous contrast History: Chest pain shortness air for 4 days Comparison: None. Technique: CT angiogram of the chest with attention to the pulmonary arteries was performed after the administration of intravenous contrast, 75 mL Omnipaque-300. Axial 2-D reconstructions were obtained. Coronal 3-D MIPS were obtained of the chest. Exposure: One or more of the following individualized dose reduction techniques were utilized for this examination: 1. Automated exposure control 2. Adjustment of the mA and/or kV according to patient size 3. Use of iterative reconstruction technique Findings: Pulmonary arteries are adequately opacified. There is motion artifact at multiple levels. There is no evidence of proximal segmental or larger pulmonary embolism. Scattered intraluminal secretions can be seen involving the trachea. No pneumothorax is identified. Small-moderate right and small left pleural effusions are seen. Dependent density involving both lungs is compatible with atelectasis. No mediastinal lymphadenopathy is seen. Thoracic aorta has normal caliber. Heart and pericardium are unremarkable. Coronary artery calcifications are seen. Images of upper abdomen demonstrate TIPS. Ascites is incompletely seen. Spleen is incompletely visualized, but may be enlarged there is a calcification. Impression: 1. Limited by motion. No proximal segmental or larger pulmonary embolus identified. 2. Small-moderate right and small left pleural effusions. 3. Tips. Ascites. Suspect splenomegaly. Electronically signed by: Russell Watkins MD (12/17/2017 4:24 PM) [place] [id number]
[2017-12-17] MEDS ORDERED: fentaNYL PF VIAL 100 MCG/2 ML VIAL IV ONE (16:45)
[2017-12-17] MEDS ORDERED: ONDANSETRON PF 4 MG/2 ML VIAL. IV ONE (17:00)
[2017-12-17] MEDS ORDERED: ONDANSETRON ODT 4 MG TAB.RAPDIS. PO PRN (17:30)
[2017-12-17] MEDS ORDERED: MAGNESIUM SULFATE 1GM 100 ML IV ONE (17:30)
[2017-12-17] MEDS ORDERED: guaiFENesin DM 200MG/20MG 10 ML SYRUP PO PRN ×2 (17:30→17:45)
[2017-12-17] MEDS ORDERED: ONDANSETRON PF 4 MG/2 ML VIAL. IV PRN (17:30)
--- NOTE | 2017-12-17 17:36 | PDOC1 ---
History and Physical Date of Admission Date of Admission DATE: 12/17/17 TIME: 17:27 Identification/Chief Complaint Chief Complaint Left-sided chest pain when she coughs Source Source: Caregiver, Chart review, Patient History of Present Illness History of Present Illness 57-year-old female usually follows with [facility], all her doctors are there. Known chronic liver disease status post TIPS, on Aldactone and lactulose/ammonia elevated 54. Some confusion when she came in, chronic tremors because she has missed her Lexapro. ABG looks good, has tachypnea. She has ascites. State SOA on exertion. CT abdomen shows pleural effusion and ascites, evidence of TIPS and splenomegaly. Albumin is 1.7. She lives alone at home in an apartment. No assistive device for ambulation used. Magnesium is low was 1.7. Admitted for chest pain rule out with reassuring EKG and troponins. Her chest pain she describes as dull, left-sided inframammary area, pleuritic, associated with greenish cough. No fevers at home. No evidence of pneumonia on x-ray. Consulted cardiology but I'll consult GI, get records from [facility] doctor. Replace magnesium. Nutrition consult for severe hypoalbuminemia. I could not help but wonder if she needs some paracentesis because of significant ascites that's causing her SOA . There is some moderate or small size pleural effusion bilateral. I have reviewed home meds that she takes it includes rifaximin, albuterol, Tylenol, ergocalciferol, Lexapro 20, folic acid, Lasix 20, lactulose 3-4 times a day, Prevacid, Zofran, Seroquel 100, spironolactone 100,'s. spriva 18 capsule inhaler, multivitamins, zinc sulfate. Past Medical History Cardiovascular: HTN Pulmonary: Asthma, Other CENTRAL NERVOUS SYSTEM: Other GI: GERD Hepatobiliary: Hep A/B/C Psych: Bipolar, Other Past Surgical History Past Surgical History: Other (TIPS) Social History Smoke: No ALCOHOL: other (quit etoh ) Drugs: None Current Problem List Problem List Problems Medical Problems: (1) Chest pain Status: Acute (2) Cirrhosis of liver Status: Acute (3) Shortness of breath Status: Acute Current Medications Current Medications Current Medications Sodium Chloride 1,000 ml @ 100 mls/hr Q10H IV Last administered on 12/17/17at 15:39; Start 12/17/17 at 15:27; Stop 12/17/17 at 17:22; Status DC Iohexol (Omnipaque 300 Mg/ml) 75 ml 1X ONCE IV Last administered on at 16:06; Start 12/17/17 at 16:00; Stop 12/17/17 at 16:01; Status DC Info (CONTRAST GIVEN -- Rx MONITORING) 1 each PRN DAILY PRN MC SEE COMMENTS; Start 12/17/17 at 16:00; Stop 12/19/17 at 15:59 Fentanyl Citrate (Fentanyl 2ml Vial) 50 mcg 1X ONCE IV Last administered on at 17:03; Start 12/17/17 at 16:45; Stop 12/17/17 at 16:50; Status DC Ondansetron HCl (Zofran) 4 mg 1X ONCE IV Last administered on 12/17/17at 17:02 ; Start 12/17/17 at 17:00; Stop 12/17/17 at 17:01; Status DC Ondansetron HCl (Zofran) 4 mg PRN Q6HRS PRN IV NAUSEA/VOMITING; Start at 17:30 Ondansetron HCl (Zofran Odt) 4 mg PRN Q6HRS PRN PO NAUSEA/VOMITING 1ST CHOICE; Start 12/17/17 at 17:30 Guaifenesin (Robitussin Dm) 10 ml PRN Q6HRS PRN PO COUGH; Start 12/17/17 at 17 :30; Status UNV Acetaminophen (Tylenol) 500 mg PRN Q6HRS PRN PO MILD PAIN / TEMP; Start at 17:30; Status UNV Folic Acid (Folic Acid) 1 mg DAILY PO ; Start 12/18/17 at 09:00; Status UNV Rifaximin (Xifaxan) 550 mg DAILY PO ; Start 12/18/17 at 09:00; Status UNV Non-Formulary Medication (Polyethylene Glycol 3350 (Miralax)) 1 packet DAILY PO ; Start 12/18/17 at 09:00; Status UNV Albuterol Sulfate (Ventolin Neb Soln) 2.5 mg PRN Q4HRS PRN NEB SHORTNESS OF BREATH; Start 12/17/17 at 17:30; Status UNV Active Scripts Active Prednisone 50 Mg Tablet 1 Tab PO DAILY Miralax (Polyethylene Glycol 3350) 17 Gm Powd.pack 1 Packet PO DAILY Amox Tr-K Clv 875-125 Mg Tab (Amoxicillin/Potassium Clav) 1 Each Tablet 1 Tab PO BID Reported Proair Hfa Inhaler (Albuterol Sulfate) 8.5 Gm Hfa.aer.ad 1 Puff INH Folic Acid 1 Mg Tablet 1 Mg PO Spironolactone 50 Mg Tablet 50 Mg PO Propranolol Hcl 10 Mg Tablet 10 Mg PO Lansoprazole 30 Mg Capsule.dr 30 Mg PO Xifaxan (Rifaximin) 550 Mg Tablet 1 Tab PO Ondansetron Odt (Ondansetron) 4 Mg Tab.rapdis 1 Tab PO Allergies Allergies: Coded Allergies: azithromycin (Verified Allergy, Intermediate, 05/05/16) diphenhydramine (Verified Allergy, Intermediate, 05/05/16) morphine (Verified Allergy, Intermediate, 05/05/16) ROS Review of System as per history of present illness SOA, ascites, weak, pleuritic left-sided chest pain, no nausea, no fever, positive for greenish phlegm Physical Exam General: Alert, Oriented X3, Cooperative, mild distress, Other (tachypneic, restless, chronic shakes) HEENT: Atraumatic, PERRLA, EOMI, Mucous membr. moist/pink Lungs: Normal air movement, Other (decrease breath sounds except especially in the bases, , no wheezing, dullness to percussion bases) Heart: S1S2, RRR, no thrills, no rubs, no gallops, no murmurs Cardiovascular: S1, S2 Breasts: Normal, Rt breast nml w/o mass, Lt breast nml w/o mass, Nipples normal Abdomen: Soft, Other (ascites, positive fluid wave, not tense though) Rectal Exam: not examined PELVIC: Nml ext genitalia Extremities: No clubbing, No cyanosis, No edema, Normal pulses, No tenderness/ swelling Skin: No rashes, No breakdown, No significant lesion Neuro: Normal gait, Normal speech, Strength at 5/5 X4 ext, Normal tone, Sensation intact, Cranial nerves 3-12 NL, Reflexes 2+ Psych/Mental Status: Mental status NL, Mood NL Vitals Vitals Vital Signs Date Time Temp Pulse Resp B/P (MAP) Pulse Ox O2 Delivery O2 Flow Rate FiO2 12/17/17 17:03 22 Nasal Cannula 2.0 12/17/17 16:17 94 12/17/17 15:15 98.0 111 165/83 (110) 98.0 Labs Labs Laboratory Tests Test 12/17/17 15:30 12/17/17 16:10 White Blood Count 7.4 x10^3/uL (4.0-11.0) Red Blood Count 4.09 x10^6/uL (3.50-5.40) Hemoglobin 13.4 g/dL (12.0-15.5) Hematocrit 38.9 % (36.0-47.0) Mean Corpuscular Volume 95 fL (79-100) Mean Corpuscular Hemoglobin 33 pg (25-35) Mean Corpuscular Hemoglobin Concent 34 g/dL (31-37) Red Cell Distribution Width 15.1 % (11.5-14.5) Platelet Count 110 x10^3/uL (140-400) Neutrophils (%) (Auto) 77 % (31-73) Lymphocytes (%) (Auto) 14 % (24-48) Monocytes (%) (Auto) 7 % (0-9) Eosinophils (%) (Auto) 2 % (0-3) Basophils (%) (Auto) 1 % (0-3) Neutrophils # (Auto) 5.7 x10^3uL (1.8-7.7) Lymphocytes # (Auto) 1.0 x10^3/uL (1.0-4.8) Monocytes # (Auto) 0.6 x10^3/uL (0.0-1.1) Eosinophils # (Auto) 0.1 x10^3/uL (0.0-0.7) Basophils # (Auto) 0.1 x10^3/uL (0.0-0.2) Prothrombin Time 14.6 SEC (11.7-14.0) Prothromb Time International Ratio 1.2 (0.8-1.1) Sodium Level 141 mmol/L (136-145) Potassium Level 4.1 mmol/L (3.5-5.1) Chloride Level 106 mmol/L (98-107) Carbon Dioxide Level 30 mmol/L (21-32) Anion Gap 5 (6-14) Blood Urea Nitrogen 18 mg/dL (7-20) Creatinine 0.8 mg/dL (0.6-1.0) Estimated GFR (Cockcroft-Gault) 73.7 BUN/Creatinine Ratio 23 (6-20) Glucose Level 106 mg/dL (70-99) Calcium Level 8.7 mg/dL (8.5-10.1) Magnesium Level 1.7 mg/dL (1.8-2.4) Total Bilirubin 1.5 mg/dL (0.2-1.0) Aspartate Amino Transf (AST/SGOT) 61 U/L (15-37) Alanine Aminotransferase (ALT/SGPT) 35 U/L (14-59) Alkaline Phosphatase 123 U/L (46-116) Ammonia 53 mcmol/L (11-34) Creatine Kinase 77 U/L (26-192) Creatine Kinase MB (Mass) 0.7 ng/mL (0.0-3.6) Creatine Kinase MB Relative Index 0.9 % (0-4) Troponin I Quantitative < 0.017 ng/mL (0.000-0.055) UO-Alv-B-Type Natriuretic Peptide 112 pg/mL (0-124) Total Protein 5.4 g/dL (6.4-8.2) Albumin 1.7 g/dL (3.4-5.0) Albumin/Globulin Ratio 0.5 (1.0-1.7) Lipase 136 U/L (73-393) O2 Saturation 94 % (92-99) Arterial Blood pH 7.39 (7.35-7.45) Arterial Blood pCO2 at Patient Temp 41 mmHg (35-46) Arterial Blood pO2 at Patient Temp 72 mmHg (75-108) Arterial Blood HCO3 25 mmol/L (21-28) Arterial Blood Base Excess 0 mmol/L (-3-3) Oxyhemoglobin 93.0 % Methemoglobin 0.7 % (0.0-1.9) Carbon Monoxide, Quantitative 0.3 % (0.0-1.9) FiO2 28 Laboratory Tests Test 12/17/17 15:30 12/17/17 16:10 White Blood Count 7.4 x10^3/uL (4.0-11.0) Red Blood Count 4.09 x10^6/uL (3.50-5.40) Hemoglobin 13.4 g/dL (12.0-15.5) Hematocrit 38.9 % (36.0-47.0) Mean Corpuscular Volume 95 fL (79-100) Mean Corpuscular Hemoglobin 33 pg (25-35) Mean Corpuscular Hemoglobin Concent 34 g/dL (31-37) Red Cell Distribution Width 15.1 % (11.5-14.5) Platelet Count 110 x10^3/uL (140-400) Neutrophils (%) (Auto) 77 % (31-73) Lymphocytes (%) (Auto) 14 % (24-48) Monocytes (%) (Auto) 7 % (0-9) Eosinophils (%) (Auto) 2 % (0-3) Basophils (%) (Auto) 1 % (0-3) Neutrophils # (Auto) 5.7 x10^3uL (1.8-7.7) Lymphocytes # (Auto) 1.0 x10^3/uL (1.0-4.8) Monocytes # (Auto) 0.6 x10^3/uL (0.0-1.1) Eosinophils # (Auto) 0.1 x10^3/uL (0.0-0.7) Basophils # (Auto) 0.1 x10^3/uL (0.0-0.2) Prothrombin Time 14.6 SEC (11.7-14.0) Prothromb Time International Ratio 1.2 (0.8-1.1) Sodium Level 141 mmol/L (136-145) Potassium Level 4.1 mmol/L (3.5-5.1) Chloride Level 106 mmol/L (98-107) Carbon Dioxide Level 30 mmol/L (21-32) Anion Gap 5 (6-14) Blood Urea Nitrogen 18 mg/dL (7-20) Creatinine 0.8 mg/dL (0.6-1.0) Estimated GFR (Cockcroft-Gault) 73.7 BUN/Creatinine Ratio 23 (6-20) Glucose Level 106 mg/dL (70-99) Calcium Level 8.7 mg/dL (8.5-10.1) Magnesium Level 1.7 mg/dL (1.8-2.4) Total Bilirubin 1.5 mg/dL (0.2-1.0) Aspartate Amino Transf (AST/SGOT) 61 U/L (15-37) Alanine Aminotransferase (ALT/SGPT) 35 U/L (14-59) Alkaline Phosphatase 123 U/L (46-116) Ammonia 53 mcmol/L (11-34) Creatine Kinase 77 U/L (26-192) Creatine Kinase MB (Mass) 0.7 ng/mL (0.0-3.6) Creatine Kinase MB Relative Index 0.9 % (0-4) Troponin I Quantitative < 0.017 ng/mL (0.000-0.055) OU-Dvp-L-Type Natriuretic Peptide 112 pg/mL (0-124) Total Protein 5.4 g/dL (6.4-8.2) Albumin 1.7 g/dL (3.4-5.0) Albumin/Globulin Ratio 0.5 (1.0-1.7) Lipase 136 U/L (73-393) O2 Saturation 94 % (92-99) Arterial Blood pH 7.39 (7.35-7.45) Arterial Blood pCO2 at Patient Temp 41 mmHg (35-46) Arterial Blood pO2 at Patient Temp 72 mmHg (75-108) Arterial Blood HCO3 25 mmol/L (21-28) Arterial Blood Base Excess 0 mmol/L (-3-3) Oxyhemoglobin 93.0 % Methemoglobin 0.7 % (0.0-1.9) Carbon Monoxide, Quantitative 0.3 % (0.0-1.9) FiO2 28 VTE Prophylaxis Ordered VTE Prophylaxis Devices: Yes VTE Pharmacological Prophylaxi: Yes Assessment/Plan Assessment/Plan Pleuritic chest pain in the background of greenish cough-no pneumonia on chest x -ray [id number]-oxytmdmd pleural effusion bilateral - SOA on exertion Ascites, history TIPS Chronic liver disease Rucq-egkjmmueh-ldv 1.7 Severe PCM, albumin 1.8 Elevated ammonia-54, on lactulose at home Plan: Admit 2 [place] Cardiology was consulted I will consult GI too Nothing by mouth post midnight as I put in an order for paracentesis tomorrow by IR. Could not help but wonder if the SOA might be related to the fluid in the abdomen. Replace magnesium 1 g IV now recheck tomorrow Did hold off pulmo consult for SOA and pleural effusion as paracentesis might help her active issue? I did start empiric rocephin given recent change in color of sputum, though Chest CT fails to show any infiltrate, but she does have fluid which may make it hard to see Nutrition consult for severe PCM Okay to resume all home meds which I have reviewed at the emergency room Okay to continue DuoNeb's Repeat ammonia tomorrow, give the lactulose 3-4 times a day for bowel movement Seen at ER [facility] DM complex, obtain records from [facility] MD Dec 17, 2017 17:36
[2017-12-17 19:00] VITALS: BP 155/87
[2017-12-17] MEDS: ALBUTEROL SULFATE 2.5 MG/3 ML NEBU. NEB PRN (19:43)
[2017-12-17] MEDS: POLYETHYLENE GLYCOL 3350 17 GM PACKET. PO SCH (20:07)
[2017-12-17] MEDS: fentaNYL PF VIAL 100 MCG/2 ML VIAL IV PRN (20:08)
[2017-12-17] MEDS: FOLIC ACID 1 MG TABLET. PO SCH (20:09)
[2017-12-17] MEDS: ASPIRIN CHEWABLE 81 MG TABLET. PO SCH (20:09)
[2017-12-17] MEDS: rifAXIMin 550 MG TABLET PO SCH (20:09)
[2017-12-17] MEDS: cefTRIAXone IV Push 1 GM VIAL. IVP SCH (21:44)
[2017-12-17] MEDS: LACTOBACILLUS RHAMNOSUS GG 1 CAPSULE. PO SCH (21:44)
[2017-12-17] MEDS: ALPRAZolam 0.25 MG TABLET PO PRN (22:01)
[2017-12-17 23:00] VITALS: BP 143/75
[2017-12-18] VITALS (8 sets, daily range): BP systolic 107–175; BP diastolic 55–86
[2017-12-18] MEDS: fentaNYL PF VIAL 100 MCG/2 ML VIAL IV PRN ×10 (00:18→23:53)
[2017-12-18] MEDS: ACETAMINOPHEN 500 MG TABLET PO PRN ×2 (01:19→13:10)
[2017-12-18 01:21] LABS: CLARITY,URINE CLEAR; COLOR,URINE AMBER
[2017-12-18 01:42] LABS: BACTERIA,URINE MODERATE /HPF (0-FEW); SQUAMOUS EPITHELIAL CELL,UR MOD /LPF; WBC,URINE 20-40 /HPF (0-4)
[2017-12-18] MEDS: POLYETHYLENE GLYCOL 3350 17 GM PACKET. PO SCH (09:00)
--- NOTE | 2017-12-18 09:08 | PDOC2 ---
GI CONSULT Reason For Consult: Ascites HPI: HPI: 57 y/o female evaluated in ER for chest pressure and SOA. Might have noticed some distention and fullness in her abdomen. Additional h/o Hep C and cirrhosis s/p TIPS - follows every 3-6 months w/ Dr. Momin @ . Treatment for Hep C unsuccessful in the past, says her doctor is trying to get her a new medicine. Has had TIPS "for awhile." One paracentesis in the past. On Aldactone ("I think"), lactulose QID (has ~3 stools daily w/ ml), and Xifaxan BID. Additional h/o GERD on Prevacid QD. Denies dysphagia, vomiting, abdominal pain , diarrhea, constipation, hematochezia, and melena. Weight fluctuates. Frequent nausea at night - takes Zofran. Past EGD and colonoscopy @ - "I couldn't tell you when, you'd have to ask them." "They had to clamp my throat once" (?variceal banding). Chart lists cholecystectomy - she denies. No pancreas history. No NSAIDs. Significant labs: plt 110, INR 1.2, bili 1.5, AST 61, ALT 35, Alk Phos 123, ammonia 42 (from 53). CTA chest noted TIPS, ascites, splenomegaly, and small pleural effusions (right> left). She had paracentesis this morning and says "not much" fluid removed. Report pending. PMH: PMH: HTN, COPD (home O2 at night PRN), bipolar, GERD, Hep C cirrhosis, TIPS, oophorectomy, paracentesis FH: Family History: No pertinent hx Social History: Smoke: <1 pack per day ALCOHOL: other (drank some in the past ("not a lot") but no alcohol for years) Drugs: None ROS: GEN: Denies fevers, chills, sweats HEENT: Denies blurred vision, sore throat CV: +chest pressure RESP: +SOA +productive cough GI: Per HPI : Denies hematuria, dysuria ENDO: +fluctuating weight NEURO: Denies confusion, dizziness MSK: +occasional LE swelling SKIN: Denies jaundice, pruritus Vitals: Vitals: Vital Signs Date Time Temp Pulse Resp B/P (MAP) Pulse Ox O2 Delivery O2 Flow Rate FiO2 10/25/18 07:10 16 93 Nasal Cannula 1.0 12/18/17 03:09 98.3 89 129/57 (81) 98.3 Labs: Labs: Laboratory Tests Test 12/17/17 15:30 12/17/17 16:10 12/18/17 01:00 12/18/17 03:18 White Blood Count 7.4 x10^3/uL (4.0-11.0) Red Blood Count 4.09 x10^6/uL (3.50-5.40) Hemoglobin 13.4 g/dL (12.0-15.5) Hematocrit 38.9 % (36.0-47.0) Mean Corpuscular Volume 95 fL (79-100) Mean Corpuscular Hemoglobin 33 pg (25-35) Mean Corpuscular Hemoglobin Concent 34 g/dL (31-37) Red Cell Distribution Width 15.1 % (11.5-14.5) Platelet Count 110 x10^3/uL (140-400) Neutrophils (%) (Auto) 77 % (31-73) Lymphocytes (%) (Auto) 14 % (24-48) Monocytes (%) (Auto) 7 % (0-9) Eosinophils (%) (Auto) 2 % (0-3) Basophils (%) (Auto) 1 % (0-3) Neutrophils # (Auto) 5.7 x10^3uL (1.8-7.7) Lymphocytes # (Auto) 1.0 x10^3/uL (1.0-4.8) Monocytes # (Auto) 0.6 x10^3/uL (0.0-1.1) Eosinophils # (Auto) 0.1 x10^3/uL (0.0-0.7) Basophils # (Auto) 0.1 x10^3/uL (0.0-0.2) Prothrombin Time 14.6 SEC (11.7-14.0) Prothromb Time International Ratio 1.2 (0.8-1.1) Sodium Level 141 mmol/L (136-145) Potassium Level 4.1 mmol/L (3.5-5.1) Chloride Level 106 mmol/L (98-107) Carbon Dioxide Level 30 mmol/L (21-32) Anion Gap 5 (6-14) Blood Urea Nitrogen 18 mg/dL (7-20) Creatinine 0.8 mg/dL (0.6-1.0) Estimated GFR (Cockcroft-Gault) 73.7 BUN/Creatinine Ratio 23 (6-20) Glucose Level 106 mg/dL (70-99) Calcium Level 8.7 mg/dL (8.5-10.1) Magnesium Level 1.7 mg/dL (1.8-2.4) 1.9 mg/dL (1.8-2.4) Total Bilirubin 1.5 mg/dL (0.2-1.0) Aspartate Amino Transf (AST/SGOT) 61 U/L (15-37) Alanine Aminotransferase (ALT/SGPT) 35 U/L (14-59) Alkaline Phosphatase 123 U/L (46-116) Ammonia 53 mcmol/L (11-34) 42 mcmol/L (11-34) Creatine Kinase 77 U/L (26-192) Creatine Kinase MB (Mass) 0.7 ng/mL (0.0-3.6) Creatine Kinase MB Relative Index 0.9 % (0-4) Troponin I Quantitative < 0.017 ng/mL (0.000-0.055) OX-Xcu-[id number]-Type Natriuretic Peptide 112 pg/mL (0-124) Total Protein 5.4 g/dL (6.4-8.2) Albumin 1.7 g/dL (3.4-5.0) Albumin/Globulin Ratio 0.5 (1.0-1.7) Lipase 136 U/L (73-393) O2 Saturation 94 % (92-99) Arterial Blood pH 7.39 (7.35-7.45) Arterial Blood pCO2 at Patient Temp 41 mmHg (35-46) Arterial Blood pO2 at Patient Temp 72 mmHg (75-108) Arterial Blood HCO3 25 mmol/L (21-28) Arterial Blood Base Excess 0 mmol/L (-3-3) Oxyhemoglobin 93.0 % Methemoglobin 0.7 % (0.0-1.9) Carbon Monoxide, Quantitative 0.3 % (0.0-1.9) FiO2 28 Urine Collection Type Unknown Urine Color Kandice Urine Clarity Clear Urine pH Urine Specific [place] >=1.030 Urine Protein mg/dL (NEG-TRACE) Urine Glucose (UA) mg/dL (NEG) Urine Ketones (Stick) mg/dL (NEG) Urine Blood (NEG) Urine Nitrite (NEG) Urine Bilirubin (NEG) Urine Urobilinogen Dipstick mg/dL (0.2 mg/dL) Urine Leukocyte Esterase (NEG) Urine RBC 6-10 /HPF (0-2) Urine WBC 20-40 /HPF (0-4) Urine Squamous Epithelial Cells Mod /LPF Urine Bacteria Moderate /HPF (0-FEW) Allergies: Coded Allergies: azithromycin (Verified Allergy, Intermediate, 05/05/16) diphenhydramine (Verified Allergy, Intermediate, 05/05/16) morphine (Verified Allergy, Intermediate, 05/05/16) Medications: Current Medications Medications (Trade) Dose Ordered Sig/Sarah Route PRN Reason Start Time Stop Time Status Last Admin Dose Admin Sodium Chloride 1,000 ml @ 100 mls/hr Q10H IV 12/17/17 15:27 12/17/17 17:22 DC 12/17/17 15:39 Iohexol (Omnipaque 300 Mg/ml) 75 ml 1X ONCE IV 12/17/17 16:00 12/17/17 16:01 DC 12/17/17 16:06 Fentanyl Citrate (Fentanyl 2ml Vial) 50 mcg 1X ONCE IV 12/17/17 16:45 12/17/17 16:50 DC 12/17/17 17:03 Ondansetron HCl (Zofran) 4 mg 1X ONCE IV 12/17/17 17:00 12/17/17 17:01 DC 12/17/17 17:02 Guaifenesin (Robitussin Dm) 10 ml PRN Q6HRS PRN PO COUGH 12/17/17 17:30 12/18/17 01:19 Acetaminophen (Tylenol) 500 mg PRN Q6HRS PRN PO MILD PAIN / TEMP 12/17/17 17:30 12/18/17 01:19 Folic Acid (Folic Acid) 1 mg DAILY PO 12/17/17 18:30 12/17/17 20:09 Rifaximin (Xifaxan) 550 mg DAILY PO 12/17/17 18:30 12/17/17 20:09 Polyethylene Glycol (miraLAX PACKET) 17 gm DAILY PO 12/17/17 18:30 12/17/17 20:07 Albuterol Sulfate (Ventolin Neb Soln) 2.5 mg PRN Q4HRS PRN NEB SHORTNESS OF BREATH 12/17/17 17:30 12/17/17 19:43 Aspirin (Children'S Aspirin) 81 mg DAILYWBKFT PO 12/17/17 18:30 12/17/17 20:09 Alprazolam (Xanax) 0.25 mg PRN Q8HRS PRN PO ANXIETY / AGITATION 12/17/17 17:30 12/17/17 22:01 Magnesium Sulfate/ Dextrose 100 ml @ 100 mls/hr 1X ONCE IV 12/17/17 17:30 12/17/17 18:29 DC 12/17/17 17:51 Lactobacillus Rhamnosus (Culturelle) 1 cap BID PO 12/17/17 21:00 12/17/17 21:44 Ceftriaxone Sodium (Rocephin) 1 gm Q24H IVP 12/17/17 18:30 12/17/17 21:44 Fentanyl Citrate (Fentanyl 2ml Vial) 50 mcg PRN Q2HR PRN IV PAIN 12/17/17 19:30 12/18/17 07:10 Imaging: Imaging: CXR IMPRESSION: 1. Bilateral pleural effusions, better demonstrated on the current CT study. 2. No acute pulmonary infiltrates. Chest CTA Impression: 1. Limited by motion. No proximal segmental or larger pulmonary embolus identified. 2. Small-moderate right and small left pleural effusions. 3. Tips. Ascites. Suspect splenomegaly. Paracentesis (pending) PE: GEN: NAD HEENT: Atraumatic, PERRL LUNGS: NC, some coarseness cleared some w/ coughing HEART: RRR ABD: ?some distention, soft, non-tender EXTREMITY: No edema - SCDs SKIN: No rashes, no jaundice NEURO/PSYCH: A & O 3 A/P: A/P: Chest pressure, SOA Hep C cirrhosis s/p TIPS -ascites on chest CTA, now s/p paracentesis -on Aldactone, lactulose, and Xifaxan -follows @ [facility] -thrombocytopenia GERD -on PPI, past EGD @ [facility] CRC screen -timing unclear, done @ [facility] -- Reviewed w/ Dr. Clarke this morning - check TIPS w/ Doppler. BRIDGET ALMANZA Dec 18, 2017 09:08
[2017-12-18] MEDS: ASPIRIN CHEWABLE 81 MG TABLET. PO SCH (09:44)
[2017-12-18] MEDS: LACTOBACILLUS RHAMNOSUS GG 1 CAPSULE. PO SCH ×2 (09:44→21:05)
[2017-12-18] MEDS: FOLIC ACID 1 MG TABLET. PO SCH (09:44)
[2017-12-18] MEDS: rifAXIMin 550 MG TABLET PO SCH ×2 (09:45→21:06)
--- NOTE | 2017-12-18 09:50 | PDOC2 ---
HOMA GALEANO [facility] CHIEF 12/18/17 0950: CARDIAC CONSULT DATE OF CONSULT Date of Consult DATE: 12/18/17 TIME: 09:42 REASON FOR CONSULT Reason for Consult: Left-sided chest pain, pleuritic REFERRING PHYSICIAN Referring Physician: Dr. Gibson SOURCE Source: Chart review, Patient HISTORY OF PRESENT ILLNESS HISTORY OF PRESENT ILLNESS This is a 57 yo female, with a history of end-stage liver disease, who presented with complaints of chest pain. Pain has been constant for the last 3 days. Located under her left breast. Describes as sharp in nature. Significant worsened with deep breathing. No associated dizziness, diaphoresis, palpitations , or nausea/vomiting. Improved with fentanyl. Has experienced some GRAHAM and orthopnea for the last few days. Initial troponin negative. CT chest notable for bilateral pleural effusion and ascites. S/p paracentesis this am. Continue to have left chest pain with deep breathing. No history of CAD. PAST MEDICAL HISTORY Cardiovascular: HTN Pulmonary: Asthma CENTRAL NERVOUS SYSTEM: Other (no pertinent hx) GI: GERD Heme/Onc: No pertinent hx Hepatobiliary: Cirrhosis (s/p TIPS), Hep A/B/C (C) Psych: Anxiety, Depression Musculoskeletal: Osteoarthritis Rheumatologic: No pertinent hx Infectious disease: No pertinent hx ENT: No pertinent hx Renal/: No pertinent hx Endocrine: Osteoporosis Dermatology: No pertinent hx PAST SURGICAL HISTORY Past Surgical History: Other (TIPS, paracentesis, aneurysm repair, oophorectomy ) FAMILY HISTORY Family History: Other (AFIB) SOCIAL HISTORY Smoke: <1 pack per day ALCOHOL: none Drugs: None Lives: Alone CURRENT MEDICATIONS CURRENT MEDICATIONS Current Medications Medications (Trade) Dose Ordered Sig/Sarah Route PRN Reason Start Time Stop Time Status Last Admin Dose Admin Sodium Chloride 1,000 ml @ 100 mls/hr Q10H IV 12/17/17 15:27 12/17/17 17:22 DC 12/17/17 15:39 Iohexol (Omnipaque 300 Mg/ml) 75 ml 1X ONCE IV 12/17/17 16:00 12/17/17 16:01 DC 12/17/17 16:06 Fentanyl Citrate (Fentanyl 2ml Vial) 50 mcg 1X ONCE IV 12/17/17 16:45 12/17/17 16:50 DC 12/17/17 17:03 Ondansetron HCl (Zofran) 4 mg 1X ONCE IV 12/17/17 17:00 12/17/17 17:01 DC 12/17/17 17:02 Guaifenesin (Robitussin Dm) 10 ml PRN Q6HRS PRN PO COUGH 12/17/17 17:30 12/18/17 01:19 Acetaminophen (Tylenol) 500 mg PRN Q6HRS PRN PO MILD PAIN / TEMP 12/17/17 17:30 12/18/17 01:19 Folic Acid (Folic Acid) 1 mg DAILY PO 12/17/17 18:30 12/17/17 20:09 Rifaximin (Xifaxan) 550 mg DAILY PO 12/17/17 18:30 12/17/17 20:09 Polyethylene Glycol (miraLAX PACKET) 17 gm DAILY PO 12/17/17 18:30 12/17/17 20:07 Albuterol Sulfate (Ventolin Neb Soln) 2.5 mg PRN Q4HRS PRN NEB SHORTNESS OF BREATH 12/17/17 17:30 12/17/17 19:43 Aspirin (Children'S Aspirin) 81 mg DAILYWBKFT PO 12/17/17 18:30 12/17/17 20:09 Alprazolam (Xanax) 0.25 mg PRN Q8HRS PRN PO ANXIETY / AGITATION 12/17/17 17:30 12/17/17 22:01 Magnesium Sulfate/ Dextrose 100 ml @ 100 mls/hr 1X ONCE IV 12/17/17 17:30 12/17/17 18:29 DC 12/17/17 17:51 Lactobacillus Rhamnosus (Culturelle) 1 cap BID PO 12/17/17 21:00 12/17/17 21:44 Ceftriaxone Sodium (Rocephin) 1 gm Q24H IVP 12/17/17 18:30 12/17/17 21:44 Fentanyl Citrate (Fentanyl 2ml Vial) 50 mcg PRN Q2HR PRN IV PAIN 12/17/17 19:30 12/18/17 07:10 ALLERGIES ALLERGIES: Coded Allergies: azithromycin (Verified Allergy, Intermediate, 05/05/16) diphenhydramine (Verified Allergy, Intermediate, 05/05/16) morphine (Verified Allergy, Intermediate, 05/05/16) ROS Review of System 14 point ROS conducted with pertinent positives noted above in HPI. PHYSICAL EXAM General: Alert, Oriented X3, Cooperative, mild distress HEENT: Atraumatic, Mucous membr. moist/pink Lungs: Other (bibasilar crackles) Heart: Regular rate, Normal S1, Normal S2 Abdomen: Other (mild distention, ascites) Extremities: Normal pulses Skin: No breakdown, No significant lesion Neuro: Normal speech, Sensation intact Psych/Mental Status: Mental status NL, Mood NL MUSCULOSKELETAL: Osteoarthritic changes both hands VITALS VITALS Vital Signs Date Time Temp Pulse Resp B/P (MAP) Pulse Ox O2 Delivery O2 Flow Rate FiO2 12/18/17 09:16 89 32 143/84 (103) 90 Nasal Cannula 2.0 12/18/17 07:00 97.9 97.9 LABS Lab: Laboratory Tests Test 12/17/17 15:30 12/17/17 16:10 12/18/17 01:00 12/18/17 03:18 White Blood Count 7.4 x10^3/uL (4.0-11.0) Red Blood Count 4.09 x10^6/uL (3.50-5.40) Hemoglobin 13.4 g/dL (12.0-15.5) Hematocrit 38.9 % (36.0-47.0) Mean Corpuscular Volume 95 fL (79-100) Mean Corpuscular Hemoglobin 33 pg (25-35) Mean Corpuscular Hemoglobin Concent 34 g/dL (31-37) Red Cell Distribution Width 15.1 % (11.5-14.5) Platelet Count 110 x10^3/uL (140-400) Neutrophils (%) (Auto) 77 % (31-73) Lymphocytes (%) (Auto) 14 % (24-48) Monocytes (%) (Auto) 7 % (0-9) Eosinophils (%) (Auto) 2 % (0-3) Basophils (%) (Auto) 1 % (0-3) Neutrophils # (Auto) 5.7 x10^3uL (1.8-7.7) Lymphocytes # (Auto) 1.0 x10^3/uL (1.0-4.8) Monocytes # (Auto) 0.6 x10^3/uL (0.0-1.1) Eosinophils # (Auto) 0.1 x10^3/uL (0.0-0.7) Basophils # (Auto) 0.1 x10^3/uL (0.0-0.2) Prothrombin Time 14.6 SEC (11.7-14.0) Prothromb Time International Ratio 1.2 (0.8-1.1) Sodium Level 141 mmol/L (136-145) Potassium Level 4.1 mmol/L (3.5-5.1) Chloride Level 106 mmol/L (98-107) Carbon Dioxide Level 30 mmol/L (21-32) Anion Gap 5 (6-14) Blood Urea Nitrogen 18 mg/dL (7-20) Creatinine 0.8 mg/dL (0.6-1.0) Estimated GFR (Cockcroft-Gault) 73.7 BUN/Creatinine Ratio 23 (6-20) Glucose Level 106 mg/dL (70-99) Calcium Level 8.7 mg/dL (8.5-10.1) Magnesium Level 1.7 mg/dL (1.8-2.4) 1.9 mg/dL (1.8-2.4) Total Bilirubin 1.5 mg/dL (0.2-1.0) Aspartate Amino Transf (AST/SGOT) 61 U/L (15-37) Alanine Aminotransferase (ALT/SGPT) 35 U/L (14-59) Alkaline Phosphatase 123 U/L (46-116) Ammonia 53 mcmol/L (11-34) 42 mcmol/L (11-34) Creatine Kinase 77 U/L (26-192) Creatine Kinase MB (Mass) 0.7 ng/mL (0.0-3.6) Creatine Kinase MB Relative Index 0.9 % (0-4) Troponin I Quantitative < 0.017 ng/mL (0.000-0.055) [id number]-Awm-[id number]-Type Natriuretic Peptide 112 pg/mL (0-124) Total Protein 5.4 g/dL (6.4-8.2) Albumin 1.7 g/dL (3.4-5.0) Albumin/Globulin Ratio 0.5 (1.0-1.7) Lipase 136 U/L (73-393) O2 Saturation 94 % (92-99) Arterial Blood pH 7.39 (7.35-7.45) Arterial Blood pCO2 at Patient Temp 41 mmHg (35-46) Arterial Blood pO2 at Patient Temp 72 mmHg (75-108) Arterial Blood HCO3 25 mmol/L (21-28) Arterial Blood Base Excess 0 mmol/L (-3-3) Oxyhemoglobin 93.0 % Methemoglobin 0.7 % (0.0-1.9) Carbon Monoxide, Quantitative 0.3 % (0.0-1.9) FiO2 28 Urine Collection Type Unknown Urine Color Kandice Urine Clarity Clear Urine pH Urine Specific [place] >=1.030 Urine Protein mg/dL (NEG-TRACE) Urine Glucose (UA) mg/dL (NEG) Urine Ketones (Stick) mg/dL (NEG) Urine Blood (NEG) Urine Nitrite (NEG) Urine Bilirubin (NEG) Urine Urobilinogen Dipstick mg/dL (0.2 mg/dL) Urine Leukocyte Esterase (NEG) Urine RBC 6-10 /HPF (0-2) Urine WBC 20-40 /HPF (0-4) Urine Squamous Epithelial Cells Mod /LPF Urine Bacteria Moderate /HPF (0-FEW) ASSESSMENT/PLAN ASSESSMENT/PLAN 1. Chest pain, atypical. Troponin negative x2- AMI ruled out. Most probably pleuritic in nature. 2. Accelerated hypertension; now better controlled 3. Cirrhosis/Hep C./ ascites.; s/p TIPS. s/p paracentesis today- report pending. Ammonia elevated. GI following 4. Dyspnea; secondary to bi pleural effusion, COPD. Pulmonary consulted. 5. Thrombocytopenia; secondary to liver disease 6. Hypomagnesemia; replaced 7. GERD; PPI 8. Depression/anxiety Recommendation Check lipids Obtain echo to assess LV systolic function If echo WNL, no further cardiac work at this time. JUAN A MENDEZ MD 12/18/17 1720: CARDIAC CONSULT ASSESSMENT/PLAN ASSESSMENT/PLAN Patient seen and examined. Agree with FLAME PLANER's assessment and plan. Chest pain with atypical features Myocardial infarction ruled out 2-D echo showed normal LV function without any wall motion abnormalities Further ischemic workup could be considered as an outpatient Blood pressure better controlled since admission Continue current medical regimen Thank you for your consultation HOMA GALEANO APRN Dec 18, 2017 09:50 JUAN A MENDEZ MD Dec 18, 2017 17:20
[2017-12-18 10:08] LABS: CHOLESTEROL/HDL RATIO 2.7
--- NOTE | 2017-12-18 10:51 | PDOC ---
PROGRESS NOTES History of Present Illness History of Present Illness Assessment/Plan Assessment/Plan Pleuritic chest pain in the background of greenish cough-no pneumonia on chest x -ray Nuuny-cx-aqzcercc pleural effusion bilateral - SOA on exertion Small-moderate right and small left pleural effusions. . Suspect splenomegaly. Ascites, history TIPS Chronic liver disease Qjrv-[id number]-[id number] 1.7 Severe PCM, albumin 1.8 Elevated ammonia-54, on lactulose at home Plan: Admit 2 [facility] following GI following paracentesis by IR. ONLY 500CC TODAY Replace magnesium pulmo consult for SOA and pleural effusion empiric rocephin given recent change in color of sputum, severe PCM DuoNeb's Repeat ammonia , give the lactulose 3-4 times a day for bowel movement obtain records from [facility] Vitals Vitals Vital Signs Date Time Temp Pulse Resp B/P (MAP) Pulse Ox O2 Delivery O2 Flow Rate FiO2 12/18/17 10:13 Nasal Cannula 2.0 12/18/17 09:16 89 32 143/84 (103) 90 12/18/17 07:00 97.9 97.9 Physical Exam General: Alert, Oriented X3, Cooperative, mild distress, Other (tachypneic, restless, chronic shakes) Heart: Regular rate, Normal S1, Normal S2 Lungs: Clear Abdomen: Normal bowel sounds, Soft, Other (obese, nontender) Extremities: No clubbing, No cyanosis, No edema, Normal pulses, No tenderness/ swelling Skin: No rashes, No breakdown, No significant lesion Labs LABS CT pulmonary angiogram with intravenous contrast History: Chest pain shortness air for 4 days Comparison: None. Technique: CT angiogram of the chest with attention to the pulmonary arteries was performed after the administration of intravenous contrast, 75 mL Omnipaque-300. Axial 2-D reconstructions were obtained. Coronal 3-D MIPS were obtained of the chest. Exposure: One or more of the following individualized dose reduction techniques were utilized for this examination: 1. Automated exposure control 2. Adjustment of the mA and/or kV according to patient size 3. Use of iterative reconstruction technique Findings: Pulmonary arteries are adequately opacified. There is motion artifact at multiple levels. There is no evidence of proximal segmental or larger pulmonary embolism. Scattered intraluminal secretions can be seen involving the trachea. No pneumothorax is identified. Small-moderate right and small left pleural effusions are seen. Dependent density involving both lungs is compatible with atelectasis. No mediastinal lymphadenopathy is seen. Thoracic aorta has normal caliber. Heart and pericardium are unremarkable. Coronary artery calcifications are seen. Images of upper abdomen demonstrate TIPS. Ascites is incompletely seen. Spleen is incompletely visualized, but may be enlarged there is a calcification. Impression: 1. Limited by motion. No proximal segmental or larger pulmonary embolus identified. 2. Small-moderate right and small left pleural effusions. 3. Tips. Ascites. Suspect splenomegaly. Laboratory Tests Test 12/17/17 15:30 12/17/17 16:10 12/18/17 01:00 12/18/17 03:18 White Blood Count 7.4 x10^3/uL (4.0-11.0) Red Blood Count 4.09 x10^6/uL (3.50-5.40) Hemoglobin 13.4 g/dL (12.0-15.5) Hematocrit 38.9 % (36.0-47.0) Mean Corpuscular Volume 95 fL (79-100) Mean Corpuscular Hemoglobin 33 pg (25-35) Mean Corpuscular Hemoglobin Concent 34 g/dL (31-37) Red Cell Distribution Width 15.1 % (11.5-14.5) Platelet Count 110 x10^3/uL (140-400) Neutrophils (%) (Auto) 77 % (31-73) Lymphocytes (%) (Auto) 14 % (24-48) Monocytes (%) (Auto) 7 % (0-9) Eosinophils (%) (Auto) 2 % (0-3) Basophils (%) (Auto) 1 % (0-3) Neutrophils # (Auto) 5.7 x10^3uL (1.8-7.7) Lymphocytes # (Auto) 1.0 x10^3/uL (1.0-4.8) Monocytes # (Auto) 0.6 x10^3/uL (0.0-1.1) Eosinophils # (Auto) 0.1 x10^3/uL (0.0-0.7) Basophils # (Auto) 0.1 x10^3/uL (0.0-0.2) Prothrombin Time 14.6 SEC (11.7-14.0) Prothromb Time International Ratio 1.2 (0.8-1.1) Sodium Level 141 mmol/L (136-145) Potassium Level 4.1 mmol/L (3.5-5.1) Chloride Level 106 mmol/L (98-107) Carbon Dioxide Level 30 mmol/L (21-32) Anion Gap 5 (6-14) Blood Urea Nitrogen 18 mg/dL (7-20) Creatinine 0.8 mg/dL (0.6-1.0) Estimated GFR (Cockcroft-Gault) 73.7 BUN/Creatinine Ratio 23 (6-20) Glucose Level 106 mg/dL (70-99) Calcium Level 8.7 mg/dL (8.5-10.1) Magnesium Level 1.7 mg/dL (1.8-2.4) 1.9 mg/dL (1.8-2.4) Total Bilirubin 1.5 mg/dL (0.2-1.0) Aspartate Amino Transf (AST/SGOT) 61 U/L (15-37) Alanine Aminotransferase (ALT/SGPT) 35 U/L (14-59) Alkaline Phosphatase 123 U/L (46-116) Ammonia 53 mcmol/L (11-34) 42 mcmol/L (11-34) Creatine Kinase 77 U/L (26-192) Creatine Kinase MB (Mass) 0.7 ng/mL (0.0-3.6) Creatine Kinase MB Relative Index 0.9 % (0-4) Troponin I Quantitative < 0.017 ng/mL (0.000-0.055) < 0.017 ng/mL (0.000-0.055) HP-Pty-S-Type Natriuretic Peptide 112 pg/mL (0-124) Total Protein 5.4 g/dL (6.4-8.2) Albumin 1.7 g/dL (3.4-5.0) Albumin/Globulin Ratio 0.5 (1.0-1.7) Lipase 136 U/L (73-393) O2 Saturation 94 % (92-99) Arterial Blood pH 7.39 (7.35-7.45) Arterial Blood pCO2 at Patient Temp 41 mmHg (35-46) Arterial Blood pO2 at Patient Temp 72 mmHg (75-108) Arterial Blood HCO3 25 mmol/L (21-28) Arterial Blood Base Excess 0 mmol/L (-3-3) Oxyhemoglobin 93.0 % Methemoglobin 0.7 % (0.0-1.9) Carbon Monoxide, Quantitative 0.3 % (0.0-1.9) FiO2 28 Urine Collection Type Unknown Urine Color Kandice Urine Clarity Clear Urine pH Urine Specific [place] >=1.030 Urine Protein mg/dL (NEG-TRACE) Urine Glucose (UA) mg/dL (NEG) Urine Ketones (Stick) mg/dL (NEG) Urine Blood (NEG) Urine Nitrite (NEG) Urine Bilirubin (NEG) Urine Urobilinogen Dipstick mg/dL (0.2 mg/dL) Urine Leukocyte Esterase (NEG) Urine RBC 6-10 /HPF (0-2) Urine WBC 20-40 /HPF (0-4) Urine Squamous Epithelial Cells Mod /LPF Urine Bacteria Moderate /HPF (0-FEW) Triglycerides Level 50 mg/dL (0-150) Cholesterol Level 103 mg/dL (0-200) LDL Cholesterol, Calculated 55 mg/dL (0-100) VLDL Cholesterol, Calculated 10 mg/dL (0-40) Non-HDL Cholesterol Calculated 65 mg/dL (0-129) HDL Cholesterol 38 mg/dL (40-60) Cholesterol/HDL Ratio 2.7 Assessment and Plan Assessmemt and Plan Problems Medical Problems: (1) Chest pain Status: Acute (2) Cirrhosis of liver Status: Acute (3) Shortness of breath Status: Acute Comment Review of Relevant I have reviewed the following items tamar (where applicable) has been applied. Labs Laboratory Tests Test 12/17/17 15:30 12/17/17 16:10 12/18/17 01:00 12/18/17 03:18 White Blood Count 7.4 x10^3/uL (4.0-11.0) Red Blood Count 4.09 x10^6/uL (3.50-5.40) Hemoglobin 13.4 g/dL (12.0-15.5) Hematocrit 38.9 % (36.0-47.0) Mean Corpuscular Volume 95 fL (79-100) Mean Corpuscular Hemoglobin 33 pg (25-35) Mean Corpuscular Hemoglobin Concent 34 g/dL (31-37) Red Cell Distribution Width 15.1 % (11.5-14.5) Platelet Count 110 x10^3/uL (140-400) Neutrophils (%) (Auto) 77 % (31-73) Lymphocytes (%) (Auto) 14 % (24-48) Monocytes (%) (Auto) 7 % (0-9) Eosinophils (%) (Auto) 2 % (0-3) Basophils (%) (Auto) 1 % (0-3) Neutrophils # (Auto) 5.7 x10^3uL (1.8-7.7) Lymphocytes # (Auto) 1.0 x10^3/uL (1.0-4.8) Monocytes # (Auto) 0.6 x10^3/uL (0.0-1.1) Eosinophils # (Auto) 0.1 x10^3/uL (0.0-0.7) Basophils # (Auto) 0.1 x10^3/uL (0.0-0.2) Prothrombin Time 14.6 SEC (11.7-14.0) Prothromb Time International Ratio 1.2 (0.8-1.1) Sodium Level 141 mmol/L (136-145) Potassium Level 4.1 mmol/L (3.5-5.1) Chloride Level 106 mmol/L (98-107) Carbon Dioxide Level 30 mmol/L (21-32) Anion Gap 5 (6-14) Blood Urea Nitrogen 18 mg/dL (7-20) Creatinine 0.8 mg/dL (0.6-1.0) Estimated GFR (Cockcroft-Gault) 73.7 BUN/Creatinine Ratio 23 (6-20) Glucose Level 106 mg/dL (70-99) Calcium Level 8.7 mg/dL (8.5-10.1) Magnesium Level 1.7 mg/dL (1.8-2.4) 1.9 mg/dL (1.8-2.4) Total Bilirubin 1.5 mg/dL (0.2-1.0) Aspartate Amino Transf (AST/SGOT) 61 U/L (15-37) Alanine Aminotransferase (ALT/SGPT) 35 U/L (14-59) Alkaline Phosphatase 123 U/L (46-116) Ammonia 53 mcmol/L (11-34) 42 mcmol/L (11-34) Creatine Kinase 77 U/L (26-192) Creatine Kinase MB (Mass) 0.7 ng/mL (0.0-3.6) Creatine Kinase MB Relative Index 0.9 % (0-4) Troponin I Quantitative < 0.017 ng/mL (0.000-0.055) < 0.017 ng/mL (0.000-0.055) TM-Jpl-D-Type Natriuretic Peptide 112 pg/mL (0-124) Total Protein 5.4 g/dL (6.4-8.2) Albumin 1.7 g/dL (3.4-5.0) Albumin/Globulin Ratio 0.5 (1.0-1.7) Lipase 136 U/L (73-393) O2 Saturation 94 % (92-99) Arterial Blood pH 7.39 (7.35-7.45) Arterial Blood pCO2 at Patient Temp 41 mmHg (35-46) Arterial Blood pO2 at Patient Temp 72 mmHg (75-108) Arterial Blood HCO3 25 mmol/L (21-28) Arterial Blood Base Excess 0 mmol/L (-3-3) Oxyhemoglobin 93.0 % Methemoglobin 0.7 % (0.0-1.9) Carbon Monoxide, Quantitative 0.3 % (0.0-1.9) FiO2 28 Urine Collection Type Unknown Urine Color Kandice Urine Clarity Clear Urine pH Urine Specific [place] >=1.030 Urine Protein mg/dL (NEG-TRACE) Urine Glucose (UA) mg/dL (NEG) Urine Ketones (Stick) mg/dL (NEG) Urine Blood (NEG) Urine Nitrite (NEG) Urine Bilirubin (NEG) Urine Urobilinogen Dipstick mg/dL (0.2 mg/dL) Urine Leukocyte Esterase (NEG) Urine RBC 6-10 /HPF (0-2) Urine WBC 20-40 /HPF (0-4) Urine Squamous Epithelial Cells Mod /LPF Urine Bacteria Moderate /HPF (0-FEW) Triglycerides Level 50 mg/dL (0-150) Cholesterol Level 103 mg/dL (0-200) LDL Cholesterol, Calculated 55 mg/dL (0-100) VLDL Cholesterol, Calculated 10 mg/dL (0-40) Non-HDL Cholesterol Calculated 65 mg/dL (0-129) HDL Cholesterol 38 mg/dL (40-60) Cholesterol/HDL Ratio 2.7 Laboratory Tests Test 12/17/17 15:30 12/17/17 16:10 12/18/17 01:00 12/18/17 03:18 White Blood Count 7.4 x10^3/uL (4.0-11.0) Red Blood Count 4.09 x10^6/uL (3.50-5.40) Hemoglobin 13.4 g/dL (12.0-15.5) Hematocrit 38.9 % (36.0-47.0) Mean Corpuscular Volume 95 fL (79-100) Mean Corpuscular Hemoglobin 33 pg (25-35) Mean Corpuscular Hemoglobin Concent 34 g/dL (31-37) Red Cell Distribution Width 15.1 % (11.5-14.5) Platelet Count 110 x10^3/uL (140-400) Neutrophils (%) (Auto) 77 % (31-73) Lymphocytes (%) (Auto) 14 % (24-48) Monocytes (%) (Auto) 7 % (0-9) Eosinophils (%) (Auto) 2 % (0-3) Basophils (%) (Auto) 1 % (0-3) Neutrophils # (Auto) 5.7 x10^3uL (1.8-7.7) Lymphocytes # (Auto) 1.0 x10^3/uL (1.0-4.8) Monocytes # (Auto) 0.6 x10^3/uL (0.0-1.1) Eosinophils # (Auto) 0.1 x10^3/uL (0.0-0.7) Basophils # (Auto) 0.1 x10^3/uL (0.0-0.2) Prothrombin Time 14.6 SEC (11.7-14.0) Prothromb Time International Ratio 1.2 (0.8-1.1) Sodium Level 141 mmol/L (136-145) Potassium Level 4.1 mmol/L (3.5-5.1) Chloride Level 106 mmol/L (98-107) Carbon Dioxide Level 30 mmol/L (21-32) Anion Gap 5 (6-14) Blood Urea Nitrogen 18 mg/dL (7-20) Creatinine 0.8 mg/dL (0.6-1.0) Estimated GFR (Cockcroft-Gault) 73.7 BUN/Creatinine Ratio 23 (6-20) Glucose Level 106 mg/dL (70-99) Calcium Level 8.7 mg/dL (8.5-10.1) Magnesium Level 1.7 mg/dL (1.8-2.4) 1.9 mg/dL (1.8-2.4) Total Bilirubin 1.5 mg/dL (0.2-1.0) Aspartate Amino Transf (AST/SGOT) 61 U/L (15-37) Alanine Aminotransferase (ALT/SGPT) 35 U/L (14-59) Alkaline Phosphatase 123 U/L (46-116) Ammonia 53 mcmol/L (11-34) 42 mcmol/L (11-34) Creatine Kinase 77 U/L (26-192) Creatine Kinase MB (Mass) 0.7 ng/mL (0.0-3.6) Creatine Kinase MB Relative Index 0.9 % (0-4) Troponin I Quantitative < 0.017 ng/mL (0.000-0.055) < 0.017 ng/mL (0.000-0.055) PD-Mzr-M-Type Natriuretic Peptide 112 pg/mL (0-124) Total Protein 5.4 g/dL (6.4-8.2) Albumin 1.7 g/dL (3.4-5.0) Albumin/Globulin Ratio 0.5 (1.0-1.7) Lipase 136 U/L (73-393) O2 Saturation 94 % (92-99) Arterial Blood pH 7.39 (7.35-7.45) Arterial Blood pCO2 at Patient Temp 41 mmHg (35-46) Arterial Blood pO2 at Patient Temp 72 mmHg (75-108) Arterial Blood HCO3 25 mmol/L (21-28) Arterial Blood Base Excess 0 mmol/L (-3-3) Oxyhemoglobin 93.0 % Methemoglobin 0.7 % (0.0-1.9) Carbon Monoxide, Quantitative 0.3 % (0.0-1.9) FiO2 28 Urine Collection Type Unknown Urine Color Kandice Urine Clarity Clear Urine pH Urine Specific [place] >=1.030 Urine Protein mg/dL (NEG-TRACE) Urine Glucose (UA) mg/dL (NEG) Urine Ketones (Stick) mg/dL (NEG) Urine Blood (NEG) Urine Nitrite (NEG) Urine Bilirubin (NEG) Urine Urobilinogen Dipstick mg/dL (0.2 mg/dL) Urine Leukocyte Esterase (NEG) Urine RBC 6-10 /HPF (0-2) Urine WBC 20-40 /HPF (0-4) Urine Squamous Epithelial Cells Mod /LPF Urine Bacteria Moderate /HPF (0-FEW) Triglycerides Level 50 mg/dL (0-150) Cholesterol Level 103 mg/dL (0-200) LDL Cholesterol, Calculated 55 mg/dL (0-100) VLDL Cholesterol, Calculated 10 mg/dL (0-40) Non-HDL Cholesterol Calculated 65 mg/dL (0-129) HDL Cholesterol 38 mg/dL (40-60) Cholesterol/HDL Ratio 2.7 Medications Current Medications Sodium Chloride 1,000 ml @ 100 mls/hr Q10H IV Last administered on 12/17/17at 15:39; Start 12/17/17 at 15:27; Stop 12/17/17 at 17:22; Status DC Iohexol (Omnipaque 300 Mg/ml) 75 ml 1X ONCE IV Last administered on at 16:06; Start 12/17/17 at 16:00; Stop 12/17/17 at 16:01; Status DC Info (CONTRAST GIVEN -- Rx MONITORING) 1 each PRN DAILY PRN MC SEE COMMENTS; Start 12/17/17 at 16:00; Stop 12/19/17 at 15:59 Fentanyl Citrate (Fentanyl 2ml Vial) 50 mcg 1X ONCE IV Last administered on at 17:03; Start 12/17/17 at 16:45; Stop 12/17/17 at 16:50; Status DC Ondansetron HCl (Zofran) 4 mg 1X ONCE IV Last administered on 12/17/17at 17:02 ; Start 12/17/17 at 17:00; Stop 12/17/17 at 17:01; Status DC Ondansetron HCl (Zofran) 4 mg PRN Q6HRS PRN IV NAUSEA/VOMITING Last administered on 12/18/17at 09:41; Start 12/17/17 at 17:30 Ondansetron HCl (Zofran Odt) 4 mg PRN Q6HRS PRN PO NAUSEA/VOMITING 1ST CHOICE; Start 12/17/17 at 17:30 Guaifenesin (Robitussin Dm) 10 ml PRN Q6HRS PRN PO COUGH Last administered on 12/18/17at 01:19; Start 12/17/17 at 17:30 Acetaminophen (Tylenol) 500 mg PRN Q6HRS PRN PO MILD PAIN / TEMP Last administered on 12/18/17 01:19; Start 12/17/17 at 17:30 Folic Acid (Folic Acid) 1 mg DAILY PO Last administered on 12/18/17 09:44; Start 12/17/17 at 18:30 Rifaximin (Xifaxan) 550 mg DAILY PO Last administered on 12/18/17 09:45; Start 12/17/17 at 18:30 Polyethylene Glycol (miraLAX PACKET) 17 gm DAILY PO Last administered on 20:07; Start 12/17/17 at 18:30 Albuterol Sulfate (Ventolin Neb Soln) 2.5 mg PRN Q4HRS PRN NEB SHORTNESS OF BREATH Last administered on 12/17/17 19:43; Start 12/17/17 at 17:30 Aspirin (Children'S Aspirin) 81 mg DAILYWBKFT PO Last administered on 09:44; Start 12/17/17 at 18:30 Alprazolam (Xanax) 0.25 mg PRN Q8HRS PRN PO ANXIETY / AGITATION Last administered on 12/17/17 22:01; Start 12/17/17 at 17:30 Magnesium Sulfate/ Dextrose 100 ml @ 100 mls/hr 1X ONCE IV Last administered on 12/17/17 17:51; Start 12/17/17 at 17:30; Stop 12/17/17 at 18:29; Status DC Ceftriaxone Sodium 1 gm/ Dextrose 50 ml @ 100 mls/hr Q24H IV ; Start 12/17/17 at 17:45; Status UNV Guaifenesin (Robitussin Dm) 10 ml PRN Q6HRS PRN PO COUGH; Start 12/17/17 at 17 :45 Lactobacillus Rhamnosus (Culturelle) 1 cap BID PO Last administered on 09:44; Start 12/17/17 at 21:00 Ceftriaxone Sodium (Rocephin) 1 gm Q24H IVP Last administered on 12/17/17 21: 44; Start 12/17/17 at 18:30 Fentanyl Citrate (Fentanyl 2ml Vial) 50 mcg PRN Q2HR PRN IV PAIN Last administered on 12/18/17 09:40; Start 12/17/17 at 19:30 Influenza Virus Vaccine (Afluria Trivalent [id number] Syringe) 0.5 ml ONCE ONCE VAX IM Last administered on 12/18/17at 09:47; Start 12/17/17 at 20:00; Stop 12/17/17 at 20:01; Status DC Active Scripts Active Prednisone 50 Mg Tablet 1 Tab PO DAILY Miralax (Polyethylene Glycol 3350) 17 Gm Powd.pack 1 Packet PO DAILY Amox Tr-K Clv 875-125 Mg Tab (Amoxicillin/Potassium Clav) 1 Each Tablet 1 Tab PO BID Reported Proair Hfa Inhaler (Albuterol Sulfate) 8.5 Gm Hfa.aer.ad 1 Puff INH Folic Acid 1 Mg Tablet 1 Mg PO Spironolactone 50 Mg Tablet 50 Mg PO Propranolol Hcl 10 Mg Tablet 10 Mg PO Lansoprazole 30 Mg Capsule.dr 30 Mg PO Xifaxan (Rifaximin) 550 Mg Tablet 1 Tab PO Ondansetron Odt (Ondansetron) 4 Mg Tab.rapdis 1 Tab PO Vitals/I & O Vital Sign - Last 24 Hours 12/17/17 12/17/17 12/17/17 12/17/17 15:15 16:00 16:17 16:30 Temp 98.0 98.0 Pulse 111 110 110 Resp 16 32 35 B/P (MAP) 165/83 (110) 183/97 (125) 175/95 (121) Pulse Ox 93 96 94 96 O2 Delivery Nasal Cannula Nasal Cannula Nasal Cannula Nasal Cannula O2 Flow Rate 2.0 2.0 2.0 2.0 12/17/17 12/17/17 12/17/17 12/17/17 17:00 17:03 17:30 18:00 Pulse 114 110 106 Resp 22 26 27 B/P (MAP) 175/87 (116) 143/80 (101) Pulse Ox 96 97 97 O2 Delivery Nasal Cannula Nasal Cannula Nasal Cannula Nasal Cannula O2 Flow Rate 2.0 2.0 2.0 2.0 12/17/17 12/17/17 12/17/17 12/17/17 19:00 19:45 20:00 20:08 Temp 97.4 97.4 Pulse 103 Resp 20 18 B/P (MAP) 155/87 (109) Pulse Ox 93 92 O2 Delivery Nasal Cannula Nasal Cannula Nasal Cannula Nasal Cannula O2 Flow Rate 2.0 1.0 1.0 12/17/17 12/18/17 12/18/17 12/18/17 23:00 00:18 02:34 03:09 Temp 98.3 98.3 98.3 98.3 Pulse 101 89 Resp 20 18 16 20 B/P (MAP) 143/75 (97) 129/57 (81) Pulse Ox 92 92 92 93 O2 Delivery Room Air Nasal Cannula Nasal Cannula Nasal Cannula O2 Flow Rate 1.0 1.0 12/18/17 12/18/17 12/18/17 12/18/17 05:01 05:45 07:00 07:10 Temp 97.9 97.9 Pulse 88 Resp 16 16 18 16 B/P (MAP) 146/55 (85) Pulse Ox 93 93 93 O2 Delivery Nasal Cannula Nasal Cannula Nasal Cannula O2 Flow Rate 1.0 1.0 12/18/17 12/18/17 12/18/17 12/18/17 08:45 09:08 09:15 09:16 Pulse 87 89 Resp 28 32 B/P (MAP) 175/79 (111) 143/84 (103) Pulse Ox 92 92 90 O2 Delivery Nasal Cannula Nasal Cannula Nasal Cannula O2 Flow Rate 1.0 2.0 2.0 12/18/17 12/18/17 09:40 10:13 O2 Delivery Nasal Cannula Nasal Cannula O2 Flow Rate 2.0 2.0 Intake and Output 12/17/17 12/17/17 12/18/17 15:00 23:00 07:00 Intake Total 200 ml 0 ml Output Total 400 ml Balance 200 ml -400 ml BEN STEWART MD Dec 18, 2017 10:51
[2017-12-18] MEDS: LISINOPRIL 5 MG TABLET. PO SCH (11:08)
[2017-12-18] MEDS ORDERED: FUROSEMIDE 20 MG/2 ML VIAL. IVP ONE (11:45)
--- NOTE | 2017-12-18 12:33 | PDOC ---
PULMONARY PROGRESS NOTES Vitals Vital Signs Date Time Temp Pulse Resp B/P (MAP) Pulse Ox O2 Delivery O2 Flow Rate FiO2 12/18/17 11:55 Nasal Cannula 2.0 12/18/17 09:16 89 32 143/84 (103) 90 12/18/17 07:00 97.9 97.9 General: Alert, Lethargic HEENT: Other Lungs: Clear Cardiovascular: S1, S2 Abdomen: Soft Extremities: No Edema Labs Laboratory Tests Test 12/17/17 15:30 12/17/17 16:10 12/18/17 01:00 12/18/17 03:18 White Blood Count 7.4 x10^3/uL (4.0-11.0) Red Blood Count 4.09 x10^6/uL (3.50-5.40) Hemoglobin 13.4 g/dL (12.0-15.5) Hematocrit 38.9 % (36.0-47.0) Mean Corpuscular Volume 95 fL (79-100) Mean Corpuscular Hemoglobin 33 pg (25-35) Mean Corpuscular Hemoglobin Concent 34 g/dL (31-37) Red Cell Distribution Width 15.1 % (11.5-14.5) Platelet Count 110 x10^3/uL (140-400) Neutrophils (%) (Auto) 77 % (31-73) Lymphocytes (%) (Auto) 14 % (24-48) Monocytes (%) (Auto) 7 % (0-9) Eosinophils (%) (Auto) 2 % (0-3) Basophils (%) (Auto) 1 % (0-3) Neutrophils # (Auto) 5.7 x10^3uL (1.8-7.7) Lymphocytes # (Auto) 1.0 x10^3/uL (1.0-4.8) Monocytes # (Auto) 0.6 x10^3/uL (0.0-1.1) Eosinophils # (Auto) 0.1 x10^3/uL (0.0-0.7) Basophils # (Auto) 0.1 x10^3/uL (0.0-0.2) Prothrombin Time 14.6 SEC (11.7-14.0) Prothromb Time International Ratio 1.2 (0.8-1.1) Sodium Level 141 mmol/L (136-145) Potassium Level 4.1 mmol/L (3.5-5.1) Chloride Level 106 mmol/L (98-107) Carbon Dioxide Level 30 mmol/L (21-32) Anion Gap 5 (6-14) Blood Urea Nitrogen 18 mg/dL (7-20) Creatinine 0.8 mg/dL (0.6-1.0) Estimated GFR (Cockcroft-Gault) 73.7 BUN/Creatinine Ratio 23 (6-20) Glucose Level 106 mg/dL (70-99) Calcium Level 8.7 mg/dL (8.5-10.1) Magnesium Level 1.7 mg/dL (1.8-2.4) 1.9 mg/dL (1.8-2.4) Total Bilirubin 1.5 mg/dL (0.2-1.0) Aspartate Amino Transf (AST/SGOT) 61 U/L (15-37) Alanine Aminotransferase (ALT/SGPT) 35 U/L (14-59) Alkaline Phosphatase 123 U/L (46-116) Ammonia 53 mcmol/L (11-34) 42 mcmol/L (11-34) Creatine Kinase 77 U/L (26-192) Creatine Kinase MB (Mass) 0.7 ng/mL (0.0-3.6) Creatine Kinase MB Relative Index 0.9 % (0-4) Troponin I Quantitative < 0.017 ng/mL (0.000-0.055) < 0.017 ng/mL (0.000-0.055) UZ-Kyz-G-Type Natriuretic Peptide 112 pg/mL (0-124) Total Protein 5.4 g/dL (6.4-8.2) Albumin 1.7 g/dL (3.4-5.0) Albumin/Globulin Ratio 0.5 (1.0-1.7) Lipase 136 U/L (73-393) O2 Saturation 94 % (92-99) Arterial Blood pH 7.39 (7.35-7.45) Arterial Blood pCO2 at Patient Temp 41 mmHg (35-46) Arterial Blood pO2 at Patient Temp 72 mmHg (75-108) Arterial Blood HCO3 25 mmol/L (21-28) Arterial Blood Base Excess 0 mmol/L (-3-3) Oxyhemoglobin 93.0 % Methemoglobin 0.7 % (0.0-1.9) Carbon Monoxide, Quantitative 0.3 % (0.0-1.9) FiO2 28 Urine Collection Type Unknown Urine Color Kandice Urine Clarity Clear Urine pH Urine Specific [place] >=1.030 Urine Protein mg/dL (NEG-TRACE) Urine Glucose (UA) mg/dL (NEG) Urine Ketones (Stick) mg/dL (NEG) Urine Blood (NEG) Urine Nitrite (NEG) Urine Bilirubin (NEG) Urine Urobilinogen Dipstick mg/dL (0.2 mg/dL) Urine Leukocyte Esterase (NEG) Urine RBC 6-10 /HPF (0-2) Urine WBC 20-40 /HPF (0-4) Urine Squamous Epithelial Cells Mod /LPF Urine Bacteria Moderate /HPF (0-FEW) Triglycerides Level 50 mg/dL (0-150) Cholesterol Level 103 mg/dL (0-200) LDL Cholesterol, Calculated 55 mg/dL (0-100) VLDL Cholesterol, Calculated 10 mg/dL (0-40) Non-HDL Cholesterol Calculated 65 mg/dL (0-129) HDL Cholesterol 38 mg/dL (40-60) Cholesterol/HDL Ratio 2.7 Laboratory Tests Test 12/17/17 15:30 12/17/17 16:10 12/18/17 01:00 12/18/17 03:18 White Blood Count 7.4 x10^3/uL (4.0-11.0) Red Blood Count 4.09 x10^6/uL (3.50-5.40) Hemoglobin 13.4 g/dL (12.0-15.5) Hematocrit 38.9 % (36.0-47.0) Mean Corpuscular Volume 95 fL (79-100) Mean Corpuscular Hemoglobin 33 pg (25-35) Mean Corpuscular Hemoglobin Concent 34 g/dL (31-37) Red Cell Distribution Width 15.1 % (11.5-14.5) Platelet Count 110 x10^3/uL (140-400) Neutrophils (%) (Auto) 77 % (31-73) Lymphocytes (%) (Auto) 14 % (24-48) Monocytes (%) (Auto) 7 % (0-9) Eosinophils (%) (Auto) 2 % (0-3) Basophils (%) (Auto) 1 % (0-3) Neutrophils # (Auto) 5.7 x10^3uL (1.8-7.7) Lymphocytes # (Auto) 1.0 x10^3/uL (1.0-4.8) Monocytes # (Auto) 0.6 x10^3/uL (0.0-1.1) Eosinophils # (Auto) 0.1 x10^3/uL (0.0-0.7) Basophils # (Auto) 0.1 x10^3/uL (0.0-0.2) Prothrombin Time 14.6 SEC (11.7-14.0) Prothromb Time International Ratio 1.2 (0.8-1.1) Sodium Level 141 mmol/L (136-145) Potassium Level 4.1 mmol/L (3.5-5.1) Chloride Level 106 mmol/L (98-107) Carbon Dioxide Level 30 mmol/L (21-32) Anion Gap 5 (6-14) Blood Urea Nitrogen 18 mg/dL (7-20) Creatinine 0.8 mg/dL (0.6-1.0) Estimated GFR (Cockcroft-Gault) 73.7 BUN/Creatinine Ratio 23 (6-20) Glucose Level 106 mg/dL (70-99) Calcium Level 8.7 mg/dL (8.5-10.1) Magnesium Level 1.7 mg/dL (1.8-2.4) 1.9 mg/dL (1.8-2.4) Total Bilirubin 1.5 mg/dL (0.2-1.0) Aspartate Amino Transf (AST/SGOT) 61 U/L (15-37) Alanine Aminotransferase (ALT/SGPT) 35 U/L (14-59) Alkaline Phosphatase 123 U/L (46-116) Ammonia 53 mcmol/L (11-34) 42 mcmol/L (11-34) Creatine Kinase 77 U/L (26-192) Creatine Kinase MB (Mass) 0.7 ng/mL (0.0-3.6) Creatine Kinase MB Relative Index 0.9 % (0-4) Troponin I Quantitative < 0.017 ng/mL (0.000-0.055) < 0.017 ng/mL (0.000-0.055) RU-Feu-G-Type Natriuretic Peptide 112 pg/mL (0-124) Total Protein 5.4 g/dL (6.4-8.2) Albumin 1.7 g/dL (3.4-5.0) Albumin/Globulin Ratio 0.5 (1.0-1.7) Lipase 136 U/L (73-393) O2 Saturation 94 % (92-99) Arterial Blood pH 7.39 (7.35-7.45) Arterial Blood pCO2 at Patient Temp 41 mmHg (35-46) Arterial Blood pO2 at Patient Temp 72 mmHg (75-108) Arterial Blood HCO3 25 mmol/L (21-28) Arterial Blood Base Excess 0 mmol/L (-3-3) Oxyhemoglobin 93.0 % Methemoglobin 0.7 % (0.0-1.9) Carbon Monoxide, Quantitative 0.3 % (0.0-1.9) FiO2 28 Urine Collection Type Unknown Urine Color Kandice Urine Clarity Clear Urine pH Urine Specific [place] >=1.030 Urine Protein mg/dL (NEG-TRACE) Urine Glucose (UA) mg/dL (NEG) Urine Ketones (Stick) mg/dL (NEG) Urine Blood (NEG) Urine Nitrite (NEG) Urine Bilirubin (NEG) Urine Urobilinogen Dipstick mg/dL (0.2 mg/dL) Urine Leukocyte Esterase (NEG) Urine RBC 6-10 /HPF (0-2) Urine WBC 20-40 /HPF (0-4) Urine Squamous Epithelial Cells Mod /LPF Urine Bacteria Moderate /HPF (0-FEW) Triglycerides Level 50 mg/dL (0-150) Cholesterol Level 103 mg/dL (0-200) LDL Cholesterol, Calculated 55 mg/dL (0-100) VLDL Cholesterol, Calculated 10 mg/dL (0-40) Non-HDL Cholesterol Calculated 65 mg/dL (0-129) HDL Cholesterol 38 mg/dL (40-60) Cholesterol/HDL Ratio 2.7 Medications Active Scripts Medications Dose Route/Sig Max Daily Dose Days Date Category Prednisone 50 Mg Tablet 1 Tab PO DAILY 04/15/17 Rx Miralax (Polyethylene Glycol 3350) 17 Gm Powd.pack 1 Packet PO DAILY 05/13/16 Rx Amox Tr-K Clv 875-125 Mg Tab (Amoxicillin/Potassium Clav) 1 Each Tablet 1 Tab PO BID 05/13/16 Rx Proair Hfa Inhaler (Albuterol Sulfate) 8.5 Gm Hfa.aer.ad 1 Puff INH 05/05/16 Reported Folic Acid 1 Mg Tablet 1 Mg PO 05/05/16 Reported Spironolactone 50 Mg Tablet 50 Mg PO 05/05/16 Reported Propranolol Hcl 10 Mg Tablet 10 Mg PO 05/05/16 Reported Lansoprazole 30 Mg Capsule.dr 30 Mg PO 05/05/16 Reported Xifaxan (Rifaximin) 550 Mg Tablet 1 Tab PO 05/05/16 Reported Ondansetron Odt (Ondansetron) 4 Mg Tab.rapdis 1 Tab PO 05/05/16 Reported Impression . FULL CONSULT DICTATED DARNELL EFFUSION NOT LARGE ENOUGH TO WARRANT A THORACENTESIS COPD THANKS SHANTELL PAL MD Dec 18, 2017 12:33
[2017-12-18] MEDS: LACTULOSE 20 GM/30 ML SOLUTION. PO SCH ×4 (13:00→21:05)
--- NOTE | 2017-12-18 15:41 | CARD ---
MR#: [id number] Date of Study: 12/18/2017 Ordering Physician: LESLEY MAYNARD, Referring Physician: SAWYER CRAIG, Tech: Breanna Marshall APPROVED REPORT EXAM: Two-dimensional and M-mode echocardiogram with Doppler and color Doppler. Other Information Quality : AverageHR: 90bpm Rhythm : NSR INDICATION Congestive Heart Failure 2D DIMENSIONS Left Atrium(2D)3.7 (1.6-4.0cm)IVSd0.8 (0.7-1.1cm) Aortic Root(2D)3.6 (2.0-3.7cm)LVDd5.0 (3.9-5.9cm) LVOT Diameter2.1 (1.8-2.4cm)PWd1.0 (0.7-1.1cm) LVDs3.1 (2.5-4.0cm)FS (%) 38.5 % SV81.8 mlLVEF(%)68.5 (>50%) Aortic Valve AoV Peak Mich.225.7cm/sAoV VTI43.8cm AO Peak GR.20.4mmHgLVOT Peak Mich.153.0cm/s AO Mean GR.11mmHgAVA (VMAX)2.43cm2 Mitral Valve MV E Snvspana56.7cm/sMV DECEL HUWL206rn MV A Pvmdqtac398.9cm/sE/A Ratio0.8 Pulmonary Valve PV Peak Irvdmbza132.8cm/s Tricuspid Valve TR P. Ndfrbihx377vb/sRAP RULNIJZX2flXk TR Peak Gr.92keNxWSZL90nyEy LEFT VENTRICLE The left ventricle is normal size. There is normal left ventricular wall thickness. The left ventricu lar systolic function is normal. The Ejection Fraction is 60-65%. There is normal LV segmental wall m otion. Transmitral Doppler flow pattern is Grade I-abnormal relaxation pattern. RIGHT VENTRICLE The right ventricle is normal size. There is normal right ventricular wall thickness. The right ventr icular systolic function is normal. ATRIA The left atrium size is normal. The right atrium size is normal. The interatrial septum is intact wit h no evidence for an atrial septal defect or patent foramen ovale as noted on 2-D or Doppler imaging. AORTIC VALVE The aortic valve is not well visualized. Doppler and Color Flow revealed trace aortic regurgitation. There is no significant aortic valvular stenosis. MITRAL VALVE The mitral valve is moderately thickened. There is no mitral valve stenosis. Doppler and Color-flow r evealed trace mitral regurgitation. TRICUSPID VALVE The tricuspid valve is not well visualized. Doppler and Color Flow revealed trace tricuspid regurgita tion. There is no tricuspid valve stenosis. PULMONIC VALVE The pulmonic valve is not well visualized. Doppler and Color Flow revealed no pulmonic valvular regur gitation. GREAT VESSELS The aortic root is normal in size. The IVC is normal in size and collapses >50% with inspiration. PERICARDIAL EFFUSION There is no evidence of significant pericardial effusion. Critical Notification Critical Value: No <Conclusion> The left ventricular systolic function is normal. The Ejection Fraction is 60-65%. There is normal LV segmental wall motion. Transmitral Doppler flow pattern is Grade I-abnormal relaxation pattern. Trace mitral regurgitation. Trace tricuspid regurgitation. There is no evidence of significant pericardial effusion. Signed by : Vasquez Santiago, Electronically Approved : 12/18/2017 15:41:00
[2017-12-18] MEDS: cefTRIAXone IV Push 1 GM VIAL. IVP SCH (16:09)
[2017-12-18] MEDS: ALPRAZolam 0.25 MG TABLET PO PRN (21:55)
[2017-12-18] MEDS: MAG HYDROX/ALUMINUM HYD/SIMETH 30 ML ORAL.SUSP PO PRN (23:52)
[2017-12-19] MEDS: fentaNYL PF VIAL 100 MCG/2 ML VIAL IV PRN ×5 (01:59→23:48)
[2017-12-19 03:04] VITALS: BP 149/73
--- NOTE | 2017-12-19 03:32 | CONS ---
DATE OF CONSULTATION: ATTENDING PHYSICIAN: Ramila Gibson MD REASON FOR CONSULTATION: The patient seen in pulmonary consultation at the request of Dr. Glass for shortness of air, abnormal CT chest revealing effusion. HISTORY OF PRESENT ILLNESS: The patient is a 57-year-old that presented with history of end-stage renal disease, normally sees doctors at . She is post TIPS procedure, normally on Aldactone, lactulose, normally on Aldactone and lactulose. She came in with some confusion, increasing shortness of breath and tremor. An ABG was obtained, which was within normal limits. She was also tachypneic. She has some ascites. CT abdomen showed the pleural effusion, ascites. She underwent a paracentesis removing 350 mL of fluid. She does feel less short of breath. She had a CTA for pulmonary embolism. CT angiogram was somewhat limited study secondary to motion artifact. There were no proximal segmental large pulmonary emboli identified. There was small moderate right and small left effusion. The patient does have underlying COPD. She normally wears oxygen at home. She has not had frequent acute exacerbations of COPD. She does not follow a set illustrator on a regular basis. She continues to smoke. I was asked to see her in consultation for the above. PAST MEDICAL HISTORY: 1. End-stage liver disease, status post TIPS, on chronic Aldactone and lactulose at home. 2. Recurrent ascites, status post paracentesis. 3. Hypertension. 4. COPD. 5. Tobacco dependent. 6. Anxiety and depression. 7. Osteoarthritis. PAST SURGICAL HISTORY: As above. ALLERGIES: AZITHROMYCIN, DIPHENHYDRAMINE, MORPHINE. REVIEW OF SYSTEMS: CONSTITUTIONAL: No fever or chills. EYES: No change in visual acuity. HEENT: No nasal congestion or sore throat. PULMONARY: As indicated above. CARDIOVASCULAR: No chest pain or pressure. GASTROINTESTINAL: As indicated above. GENITOURINARY: No dysuria or frequency. MUSCULOSKELETAL: No localized muscle aches or joint pains. SKIN: No new skin rashes. NEUROLOGIC: No headaches, diplopia or blurred vision. CURRENT MEDICATIONS: List was reviewed. The patient is receiving ceftriaxone, furosemide, and guaifenesin in addition to the other meds, nebulized treatments p.r.n. FAMILY HISTORY: No family history of lung disorders. PHYSICAL EXAMINATION: VITAL SIGNS: Since admission, she has been afebrile. She is currently on 2 L of oxygen supplementation, saturation greater than 92%. HEENT: Eyes: The sclerae were nonicteric. NECK: Jugular venous distention was not elevated. No lymphadenopathy. CHEST: Full expansion. LUNGS: Adequate airway flow with diminished breath sounds in the bases. Anteriorly, she had some scattered rhonchi. CARDIOVASCULAR: Regular rate and rhythm with S1, S2, no S3. ABDOMEN: Soft, distended. EXTREMITIES: No clubbing, cyanosis. Minimal edema. NEUROLOGIC: The patient was awake, alert, following commands. A detailed neuro exam is not performed. LABORATORY DATA: Arterial blood gas: pH of 7.39, PaCO2 of 41, pO2 of 72 on 28% FIO2. White count was normal. Hemoglobin and hematocrit were normal. INR was 1.2. Electrolytes upon admission were normal. BUN was normal. Creatinine was normal. AST was elevated. Alkaline phosphatase was elevated. Total protein was low. Albumin was low. Lipase was 136. Total bilirubin level was elevated at 1.5. IMAGING DATA: CT chest as indicated above. IMPRESSION: 1. Chronic respiratory failure, multifactorial. 2. Bilateral pleural effusion secondary to ascites. 3. Ascites secondary to end-stage liver disease. 4. End-stage liver disease, status post transjugular intrahepatic portosystemic shunt. 5. Tobacco dependent. 6. Chronic obstructive pulmonary disease. 7. Accelerated hypertension. 8. Coagulopathy. 9. Protein malnutrition, present upon admission. PLAN: 1. The patient states that she feels better status post paracentesis. 2. Not enough fluid to warrant a thoracentesis. 3. Continue treatment of COPD with oxygen supplementation, nebulized treatments. 4. The patient instructed on the importance to discontinue tobacco use. 5. We will follow and make further recommendations. I do appreciate the privilege in sharing in the patient's care. SHANTELL PAL MD DR: BRENNA/annita JOB#: [id number] / [id number]
[2017-12-19] MEDS: ACETAMINOPHEN 500 MG TABLET PO PRN (04:58)
[2017-12-19 07:00] VITALS: BP 147/87
[2017-12-19] MEDS: ALBUTEROL SULFATE 2.5 MG/3 ML NEBU. NEB PRN (07:46)
--- NOTE | 2017-12-19 08:40 | RAD ---
Hepatic Deep Doppler examination, 12/19/2017: HISTORY: Cirrhosis, TIPS check Duplex evaluation of the hepatic vasculature including the known TIPS stent was performed utilizing grayscale, color-flow and spectral Doppler analysis. The TIPS is patent with a peak systolic velocity 115 cm/s at its portal end, 150 cm/s at its midportion and 138 cm/s at its hepatic venous end. A normal direction of flow is evident in the portal veins and hepatic veins. Incidental note is made of mild ascites and bilateral pleural effusions. The hepatic margins are irregular compatible cirrhosis. Gallstones are evident in the gallbladder. The spleen measures 17 cm in length. IMPRESSION: 1. Patent TIPS. 2. Hepatic cirrhosis with ascites and splenomegaly. 3. Cholelithiasis. 4. Bilateral pleural effusions. Electronically signed by: Sarath Melendez MD (12/19/2017 8:37 AM) [facility]
[2017-12-19] MEDS: LACTOBACILLUS RHAMNOSUS GG 1 CAPSULE. PO SCH ×2 (09:01→20:47)
[2017-12-19] MEDS: LACTULOSE 20 GM/30 ML SOLUTION. PO SCH ×4 (09:01→20:47)
[2017-12-19] MEDS: POLYETHYLENE GLYCOL 3350 17 GM PACKET. PO SCH (09:01)
[2017-12-19] MEDS: ASPIRIN CHEWABLE 81 MG TABLET. PO SCH (09:02)
[2017-12-19] MEDS: FOLIC ACID 1 MG TABLET. PO SCH (09:02)
[2017-12-19] MEDS: rifAXIMin 550 MG TABLET PO SCH ×2 (09:02→20:47)
[2017-12-19] MEDS: LISINOPRIL 5 MG TABLET. PO SCH (09:02)
[2017-12-19 09:26] LABS: BASO % 1 % (0-3); EOS # 0.3 x10^3/uL (0.0-0.7); EOS % 4 % (0-3); HEMOGLOBIN 12.3 g/dL (12.0-15.5); LYMPH # 1.4 x10^3/uL (1.0-4.8); LYMPH % 18 % (24-48); MEAN CORPUSCULAR HEMOGLOBIN 33 pg (25-35); MEAN CORPUSCULAR HGB CONC 34 g/dL (31-37); MEAN CORPUSCULAR VOLUME 95 fL (79-100); MONO # 0.7 x10^3/uL (0.0-1.1); MONO % 9 % (0-9); NEUT # 5.4 x10^3uL (1.8-7.7); NEUT % 68 % (31-73); PLATELET COUNT 105 x10^3/uL (140-400); RED BLOOD COUNT 3.79 x10^6/uL (3.50-5.40); RED CELL DISTRIBUTION WIDTH 15.3 % (11.5-14.5); WHITE BLOOD COUNT 7.8 x10^3/uL (4.0-11.0)
[2017-12-19 09:47] LABS: ALBUMIN 1.5 g/dL (3.4-5.0); ALBUMIN/GLOBULIN RATIO 0.4 (1.0-1.7); CALCIUM 8.6 mg/dL (8.5-10.1); CREATININE 0.7 mg/dL (0.6-1.0); GFR 85.9; POTASSIUM 4.1 mmol/L (3.5-5.1); TOTAL BILIRUBIN 0.9 mg/dL (0.2-1.0); TOTAL PROTEIN 5.4 g/dL (6.4-8.2)
[2017-12-19 11:00] VITALS: BP 161/76
--- NOTE | 2017-12-19 11:08 | RAD ---
Procedure: Ultrasound guided paracentesis Clinical Indication: 57-year-old female with cirrhosis and abdominal ascites Sedation: Local anesthesia only Antibiotics: None Fluoro Time: None Contrast: Not applicable Sterility: The procedure was performed in its entirety using appropriate elements of sterile technique. Consent: The procedure was explained in its entirety to the patient or the patients designated risk control representative by a member of the treatment team, including a discussion of the risks, benefits and commonly accepted alternatives to the procedure, as well as the expected consequences of no therapy whatsoever. Discussion of the risks included, but was not limited to, those that are most frequent and those that are rare but possibly severe or life-threatening, as well as the possibility of unforeseen complications. Technique and Findings: Following informed consent, the patient was prepped and draped in the usual sterile fashion. Ultrasound interrogation of the abdomen revealed perihepatic ascites. A hard copy ultrasound image was recorded. 1% Lidocaine was used to achieve local anesthesia over the area of interest, and a 6 Romansh Xbfg-R-Qngtvham catheter was advanced into the peritoneal cavity under ultrasound guidance. 350 cc of thin yellow ascites was then withdrawn. The catheter was removed and hemostasis was achieved with manual compression. Complications: No immediate Impression: 1. Ultrasound-guided paracentesis as described
--- NOTE | 2017-12-19 12:01 | PDOC ---
PULMONARY PROGRESS NOTES Vitals Vital Signs Date Time Temp Pulse Resp B/P (MAP) Pulse Ox O2 Delivery O2 Flow Rate FiO2 12/19/17 09:03 96 Nasal Cannula 2.0 12/19/17 09:02 87 149/73 12/19/17 07:00 98.4 22 98.4 General: Alert, Lethargic HEENT: Other Lungs: Clear Cardiovascular: S1, S2 Abdomen: Soft Extremities: No Edema Labs Laboratory Tests Test 12/17/17 15:30 12/17/17 16:10 12/18/17 01:00 12/18/17 03:18 White Blood Count 7.4 x10^3/uL (4.0-11.0) Red Blood Count 4.09 x10^6/uL (3.50-5.40) Hemoglobin 13.4 g/dL (12.0-15.5) Hematocrit 38.9 % (36.0-47.0) Mean Corpuscular Volume 95 fL (79-100) Mean Corpuscular Hemoglobin 33 pg (25-35) Mean Corpuscular Hemoglobin Concent 34 g/dL (31-37) Red Cell Distribution Width 15.1 % (11.5-14.5) Platelet Count 110 x10^3/uL (140-400) Neutrophils (%) (Auto) 77 % (31-73) Lymphocytes (%) (Auto) 14 % (24-48) Monocytes (%) (Auto) 7 % (0-9) Eosinophils (%) (Auto) 2 % (0-3) Basophils (%) (Auto) 1 % (0-3) Neutrophils # (Auto) 5.7 x10^3uL (1.8-7.7) Lymphocytes # (Auto) 1.0 x10^3/uL (1.0-4.8) Monocytes # (Auto) 0.6 x10^3/uL (0.0-1.1) Eosinophils # (Auto) 0.1 x10^3/uL (0.0-0.7) Basophils # (Auto) 0.1 x10^3/uL (0.0-0.2) Prothrombin Time 14.6 SEC (11.7-14.0) Prothromb Time International Ratio 1.2 (0.8-1.1) Sodium Level 141 mmol/L (136-145) Potassium Level 4.1 mmol/L (3.5-5.1) Chloride Level 106 mmol/L (98-107) Carbon Dioxide Level 30 mmol/L (21-32) Anion Gap 5 (6-14) Blood Urea Nitrogen 18 mg/dL (7-20) Creatinine 0.8 mg/dL (0.6-1.0) Estimated GFR (Cockcroft-Gault) 73.7 BUN/Creatinine Ratio 23 (6-20) Glucose Level 106 mg/dL (70-99) Calcium Level 8.7 mg/dL (8.5-10.1) Magnesium Level 1.7 mg/dL (1.8-2.4) 1.9 mg/dL (1.8-2.4) Total Bilirubin 1.5 mg/dL (0.2-1.0) Aspartate Amino Transf (AST/SGOT) 61 U/L (15-37) Alanine Aminotransferase (ALT/SGPT) 35 U/L (14-59) Alkaline Phosphatase 123 U/L (46-116) Ammonia 53 mcmol/L (11-34) 42 mcmol/L (11-34) Creatine Kinase 77 U/L (26-192) Creatine Kinase MB (Mass) 0.7 ng/mL (0.0-3.6) Creatine Kinase MB Relative Index 0.9 % (0-4) Troponin I Quantitative < 0.017 ng/mL (0.000-0.055) < 0.017 ng/mL (0.000-0.055) XN-Ioh-K-Type Natriuretic Peptide 112 pg/mL (0-124) Total Protein 5.4 g/dL (6.4-8.2) Albumin 1.7 g/dL (3.4-5.0) Albumin/Globulin Ratio 0.5 (1.0-1.7) Lipase 136 U/L (73-393) O2 Saturation 94 % (92-99) Arterial Blood pH 7.39 (7.35-7.45) Arterial Blood pCO2 at Patient Temp 41 mmHg (35-46) Arterial Blood pO2 at Patient Temp 72 mmHg (75-108) Arterial Blood HCO3 25 mmol/L (21-28) Arterial Blood Base Excess 0 mmol/L (-3-3) Oxyhemoglobin 93.0 % Methemoglobin 0.7 % (0.0-1.9) Carbon Monoxide, Quantitative 0.3 % (0.0-1.9) FiO2 28 Urine Collection Type Unknown Urine Color Kandice Urine Clarity Clear Urine pH Urine Specific [place] >=1.030 Urine Protein mg/dL (NEG-TRACE) Urine Glucose (UA) mg/dL (NEG) Urine Ketones (Stick) mg/dL (NEG) Urine Blood (NEG) Urine Nitrite (NEG) Urine Bilirubin (NEG) Urine Urobilinogen Dipstick mg/dL (0.2 mg/dL) Urine Leukocyte Esterase (NEG) Urine RBC 6-10 /HPF (0-2) Urine WBC 20-40 /HPF (0-4) Urine Squamous Epithelial Cells Mod /LPF Urine Bacteria Moderate /HPF (0-FEW) Triglycerides Level 50 mg/dL (0-150) Cholesterol Level 103 mg/dL (0-200) LDL Cholesterol, Calculated 55 mg/dL (0-100) VLDL Cholesterol, Calculated 10 mg/dL (0-40) Non-HDL Cholesterol Calculated 65 mg/dL (0-129) HDL Cholesterol 38 mg/dL (40-60) Cholesterol/HDL Ratio 2.7 Test 12/19/17 08:30 White Blood Count 7.8 x10^3/uL (4.0-11.0) Red Blood Count 3.79 x10^6/uL (3.50-5.40) Hemoglobin 12.3 g/dL (12.0-15.5) Hematocrit 36.0 % (36.0-47.0) Mean Corpuscular Volume 95 fL (79-100) Mean Corpuscular Hemoglobin 33 pg (25-35) Mean Corpuscular Hemoglobin Concent 34 g/dL (31-37) Red Cell Distribution Width 15.3 % (11.5-14.5) Platelet Count 105 x10^3/uL (140-400) Neutrophils (%) (Auto) 68 % (31-73) Lymphocytes (%) (Auto) 18 % (24-48) Monocytes (%) (Auto) 9 % (0-9) Eosinophils (%) (Auto) 4 % (0-3) Basophils (%) (Auto) 1 % (0-3) Neutrophils # (Auto) 5.4 x10^3uL (1.8-7.7) Lymphocytes # (Auto) 1.4 x10^3/uL (1.0-4.8) Monocytes # (Auto) 0.7 x10^3/uL (0.0-1.1) Eosinophils # (Auto) 0.3 x10^3/uL (0.0-0.7) Basophils # (Auto) 0.0 x10^3/uL (0.0-0.2) Sodium Level 142 mmol/L (136-145) Potassium Level 4.1 mmol/L (3.5-5.1) Chloride Level 106 mmol/L (98-107) Carbon Dioxide Level 32 mmol/L (21-32) Anion Gap 4 (6-14) Blood Urea Nitrogen 25 mg/dL (7-20) Creatinine 0.7 mg/dL (0.6-1.0) Estimated GFR (Cockcroft-Gault) 85.9 BUN/Creatinine Ratio 36 (6-20) Glucose Level 100 mg/dL (70-99) Calcium Level 8.6 mg/dL (8.5-10.1) Total Bilirubin 0.9 mg/dL (0.2-1.0) Aspartate Amino Transf (AST/SGOT) 51 U/L (15-37) Alanine Aminotransferase (ALT/SGPT) 28 U/L (14-59) Alkaline Phosphatase 125 U/L (46-116) Ammonia 34 mcmol/L (11-34) Total Protein 5.4 g/dL (6.4-8.2) Albumin 1.5 g/dL (3.4-5.0) Albumin/Globulin Ratio 0.4 (1.0-1.7) Laboratory Tests Test 12/19/17 08:30 White Blood Count 7.8 x10^3/uL (4.0-11.0) Red Blood Count 3.79 x10^6/uL (3.50-5.40) Hemoglobin 12.3 g/dL (12.0-15.5) Hematocrit 36.0 % (36.0-47.0) Mean Corpuscular Volume 95 fL (79-100) Mean Corpuscular Hemoglobin 33 pg (25-35) Mean Corpuscular Hemoglobin Concent 34 g/dL (31-37) Red Cell Distribution Width 15.3 % (11.5-14.5) Platelet Count 105 x10^3/uL (140-400) Neutrophils (%) (Auto) 68 % (31-73) Lymphocytes (%) (Auto) 18 % (24-48) Monocytes (%) (Auto) 9 % (0-9) Eosinophils (%) (Auto) 4 % (0-3) Basophils (%) (Auto) 1 % (0-3) Neutrophils # (Auto) 5.4 x10^3uL (1.8-7.7) Lymphocytes # (Auto) 1.4 x10^3/uL (1.0-4.8) Monocytes # (Auto) 0.7 x10^3/uL (0.0-1.1) Eosinophils # (Auto) 0.3 x10^3/uL (0.0-0.7) Basophils # (Auto) 0.0 x10^3/uL (0.0-0.2) Sodium Level 142 mmol/L (136-145) Potassium Level 4.1 mmol/L (3.5-5.1) Chloride Level 106 mmol/L (98-107) Carbon Dioxide Level 32 mmol/L (21-32) Anion Gap 4 (6-14) Blood Urea Nitrogen 25 mg/dL (7-20) Creatinine 0.7 mg/dL (0.6-1.0) Estimated GFR (Cockcroft-Gault) 85.9 BUN/Creatinine Ratio 36 (6-20) Glucose Level 100 mg/dL (70-99) Calcium Level 8.6 mg/dL (8.5-10.1) Total Bilirubin 0.9 mg/dL (0.2-1.0) Aspartate Amino Transf (AST/SGOT) 51 U/L (15-37) Alanine Aminotransferase (ALT/SGPT) 28 U/L (14-59) Alkaline Phosphatase 125 U/L (46-116) Ammonia 34 mcmol/L (11-34) Total Protein 5.4 g/dL (6.4-8.2) Albumin 1.5 g/dL (3.4-5.0) Albumin/Globulin Ratio 0.4 (1.0-1.7) Medications Active Scripts Medications Dose Route/Sig Max Daily Dose Days Date Category Prednisone 50 Mg Tablet 1 Tab PO DAILY 04/15/17 Rx Miralax (Polyethylene Glycol 3350) 17 Gm Powd.pack 1 Packet PO DAILY 05/13/16 Rx Amox Tr-K Clv 875-125 Mg Tab (Amoxicillin/Potassium Clav) 1 Each Tablet 1 Tab PO BID 05/13/16 Rx Proair Hfa Inhaler (Albuterol Sulfate) 8.5 Gm Hfa.aer.ad 1 Puff INH 05/05/16 Reported Folic Acid 1 Mg Tablet 1 Mg PO 05/05/16 Reported Spironolactone 50 Mg Tablet 50 Mg PO 05/05/16 Reported Propranolol Hcl 10 Mg Tablet 10 Mg PO 05/05/16 Reported Lansoprazole 30 Mg Capsule.dr 30 Mg PO 05/05/16 Reported Xifaxan (Rifaximin) 550 Mg Tablet 1 Tab PO 05/05/16 Reported Ondansetron Odt (Ondansetron) 4 Mg Tab.rapdis 1 Tab PO 05/05/16 Reported Impression . IMPRESSION: 1. Chronic respiratory failure, multifactorial. 2. Bilateral pleural effusion secondary to ascites. 3. Ascites secondary to end-stage liver disease. 4. End-stage liver disease, status post transjugular intrahepatic portosystemic shunt. 5. Tobacco dependent. 6. Chronic obstructive pulmonary disease. 7. Accelerated hypertension. 8. Coagulopathy. 9. Protein malnutrition, present upon admission. Plan . 1. The patient states that she feels better status post paracentesis. 2. Not enough fluid to warrant a thoracentesis. 3. Continue treatment of COPD with oxygen supplementation, nebulized treatments. 4. The patient instructed on the importance to discontinue tobacco use. 5. We will follow and make further recommendations. SHANTELL PAL MD Dec 19, 2017 12:01
--- NOTE | 2017-12-19 12:44 | PDOC ---
PROGRESS NOTES Chief Complaint Chief Complaint she states that she feels better after the tap, she states also she has been walking back and forth from the room, no fever or chills, no other concerns noted History of Present Illness History of Present Illness Assessment/Plan Assessment/Plan Pleuritic chest pain in the background of greenish cough-no pneumonia on chest x -ray Mqdpo-lu-sdwdesvu pleural effusion bilateral - SOA on exertion Small-moderate right and small left pleural effusions. . Suspect splenomegaly. Ascites, history TIPS Chronic liver disease [id number] 1.7 Severe PCM, albumin 1.8 Elevated ammonia-54, on lactulose at home Plan: s/p paracentesis by IR. ONLY 500CC copd exac treatment pulm toilet encourage ambulation empiric rocephin given recent change in color of sputum, severe PCM DuoNeb's Repeat ammonia , give the lactulose 3-4 times a day for bowel movement obtain records from [facility] Vitals Vitals Vital Signs Date Time Temp Pulse Resp B/P (MAP) Pulse Ox O2 Delivery O2 Flow Rate FiO2 12/19/17 11:00 98.3 82 20 161/76 (104) 93 Nasal Cannula 98.3 12/19/17 09:03 2.0 Physical Exam General: Alert, Oriented X3, Cooperative, mild distress Heart: Regular rate, Normal S1, Normal S2 Lungs: Clear Abdomen: Normal bowel sounds, Soft, Other (obese, nontender) Extremities: Normal pulses Skin: No breakdown, No significant lesion Labs LABS Laboratory Tests Test 12/19/17 08:30 White Blood Count 7.8 x10^3/uL (4.0-11.0) Red Blood Count 3.79 x10^6/uL (3.50-5.40) Hemoglobin 12.3 g/dL (12.0-15.5) Hematocrit 36.0 % (36.0-47.0) Mean Corpuscular Volume 95 fL (79-100) Mean Corpuscular Hemoglobin 33 pg (25-35) Mean Corpuscular Hemoglobin Concent 34 g/dL (31-37) Red Cell Distribution Width 15.3 % (11.5-14.5) Platelet Count 105 x10^3/uL (140-400) Neutrophils (%) (Auto) 68 % (31-73) Lymphocytes (%) (Auto) 18 % (24-48) Monocytes (%) (Auto) 9 % (0-9) Eosinophils (%) (Auto) 4 % (0-3) Basophils (%) (Auto) 1 % (0-3) Neutrophils # (Auto) 5.4 x10^3uL (1.8-7.7) Lymphocytes # (Auto) 1.4 x10^3/uL (1.0-4.8) Monocytes # (Auto) 0.7 x10^3/uL (0.0-1.1) Eosinophils # (Auto) 0.3 x10^3/uL (0.0-0.7) Basophils # (Auto) 0.0 x10^3/uL (0.0-0.2) Sodium Level 142 mmol/L (136-145) Potassium Level 4.1 mmol/L (3.5-5.1) Chloride Level 106 mmol/L (98-107) Carbon Dioxide Level 32 mmol/L (21-32) Anion Gap 4 (6-14) Blood Urea Nitrogen 25 mg/dL (7-20) Creatinine 0.7 mg/dL (0.6-1.0) Estimated GFR (Cockcroft-Gault) 85.9 BUN/Creatinine Ratio 36 (6-20) Glucose Level 100 mg/dL (70-99) Calcium Level 8.6 mg/dL (8.5-10.1) Total Bilirubin 0.9 mg/dL (0.2-1.0) Aspartate Amino Transf (AST/SGOT) 51 U/L (15-37) Alanine Aminotransferase (ALT/SGPT) 28 U/L (14-59) Alkaline Phosphatase 125 U/L (46-116) Ammonia 34 mcmol/L (11-34) Total Protein 5.4 g/dL (6.4-8.2) Albumin 1.5 g/dL (3.4-5.0) Albumin/Globulin Ratio 0.4 (1.0-1.7) Assessment and Plan Assessmemt and Plan Problems Medical Problems: (1) Chest pain Status: Acute (2) Cirrhosis of liver Status: Acute (3) Shortness of breath Status: Acute Comment Review of Relevant I have reviewed the following items tamar (where applicable) has been applied. Labs Laboratory Tests Test 12/17/17 15:30 12/17/17 16:10 12/18/17 01:00 12/18/17 03:18 White Blood Count 7.4 x10^3/uL (4.0-11.0) Red Blood Count 4.09 x10^6/uL (3.50-5.40) Hemoglobin 13.4 g/dL (12.0-15.5) Hematocrit 38.9 % (36.0-47.0) Mean Corpuscular Volume 95 fL (79-100) Mean Corpuscular Hemoglobin 33 pg (25-35) Mean Corpuscular Hemoglobin Concent 34 g/dL (31-37) Red Cell Distribution Width 15.1 % (11.5-14.5) Platelet Count 110 x10^3/uL (140-400) Neutrophils (%) (Auto) 77 % (31-73) Lymphocytes (%) (Auto) 14 % (24-48) Monocytes (%) (Auto) 7 % (0-9) Eosinophils (%) (Auto) 2 % (0-3) Basophils (%) (Auto) 1 % (0-3) Neutrophils # (Auto) 5.7 x10^3uL (1.8-7.7) Lymphocytes # (Auto) 1.0 x10^3/uL (1.0-4.8) Monocytes # (Auto) 0.6 x10^3/uL (0.0-1.1) Eosinophils # (Auto) 0.1 x10^3/uL (0.0-0.7) Basophils # (Auto) 0.1 x10^3/uL (0.0-0.2) Prothrombin Time 14.6 SEC (11.7-14.0) Prothromb Time International Ratio 1.2 (0.8-1.1) Sodium Level 141 mmol/L (136-145) Potassium Level 4.1 mmol/L (3.5-5.1) Chloride Level 106 mmol/L (98-107) Carbon Dioxide Level 30 mmol/L (21-32) Anion Gap 5 (6-14) Blood Urea Nitrogen 18 mg/dL (7-20) Creatinine 0.8 mg/dL (0.6-1.0) Estimated GFR (Cockcroft-Gault) 73.7 BUN/Creatinine Ratio 23 (6-20) Glucose Level 106 mg/dL (70-99) Calcium Level 8.7 mg/dL (8.5-10.1) Magnesium Level 1.7 mg/dL (1.8-2.4) 1.9 mg/dL (1.8-2.4) Total Bilirubin 1.5 mg/dL (0.2-1.0) Aspartate Amino Transf (AST/SGOT) 61 U/L (15-37) Alanine Aminotransferase (ALT/SGPT) 35 U/L (14-59) Alkaline Phosphatase 123 U/L (46-116) Ammonia 53 mcmol/L (11-34) 42 mcmol/L (11-34) Creatine Kinase 77 U/L (26-192) Creatine Kinase MB (Mass) 0.7 ng/mL (0.0-3.6) Creatine Kinase MB Relative Index 0.9 % (0-4) Troponin I Quantitative < 0.017 ng/mL (0.000-0.055) < 0.017 ng/mL (0.000-0.055) HM-Vlj-B-Type Natriuretic Peptide 112 pg/mL (0-124) Total Protein 5.4 g/dL (6.4-8.2) Albumin 1.7 g/dL (3.4-5.0) Albumin/Globulin Ratio 0.5 (1.0-1.7) Lipase 136 U/L (73-393) O2 Saturation 94 % (92-99) Arterial Blood pH 7.39 (7.35-7.45) Arterial Blood pCO2 at Patient Temp 41 mmHg (35-46) Arterial Blood pO2 at Patient Temp 72 mmHg (75-108) Arterial Blood HCO3 25 mmol/L (21-28) Arterial Blood Base Excess 0 mmol/L (-3-3) Oxyhemoglobin 93.0 % Methemoglobin 0.7 % (0.0-1.9) Carbon Monoxide, Quantitative 0.3 % (0.0-1.9) FiO2 28 Urine Collection Type Unknown Urine Color Kandice Urine Clarity Clear Urine pH Urine Specific [place] >=1.030 Urine Protein mg/dL (NEG-TRACE) Urine Glucose (UA) mg/dL (NEG) Urine Ketones (Stick) mg/dL (NEG) Urine Blood (NEG) Urine Nitrite (NEG) Urine Bilirubin (NEG) Urine Urobilinogen Dipstick mg/dL (0.2 mg/dL) Urine Leukocyte Esterase (NEG) Urine RBC 6-10 /HPF (0-2) Urine WBC 20-40 /HPF (0-4) Urine Squamous Epithelial Cells Mod /LPF Urine Bacteria Moderate /HPF (0-FEW) Triglycerides Level 50 mg/dL (0-150) Cholesterol Level 103 mg/dL (0-200) LDL Cholesterol, Calculated 55 mg/dL (0-100) VLDL Cholesterol, Calculated 10 mg/dL (0-40) Non-HDL Cholesterol Calculated 65 mg/dL (0-129) HDL Cholesterol 38 mg/dL (40-60) Cholesterol/HDL Ratio 2.7 Test 12/19/17 08:30 White Blood Count 7.8 x10^3/uL (4.0-11.0) Red Blood Count 3.79 x10^6/uL (3.50-5.40) Hemoglobin 12.3 g/dL (12.0-15.5) Hematocrit 36.0 % (36.0-47.0) Mean Corpuscular Volume 95 fL (79-100) Mean Corpuscular Hemoglobin 33 pg (25-35) Mean Corpuscular Hemoglobin Concent 34 g/dL (31-37) Red Cell Distribution Width 15.3 % (11.5-14.5) Platelet Count 105 x10^3/uL (140-400) Neutrophils (%) (Auto) 68 % (31-73) Lymphocytes (%) (Auto) 18 % (24-48) Monocytes (%) (Auto) 9 % (0-9) Eosinophils (%) (Auto) 4 % (0-3) Basophils (%) (Auto) 1 % (0-3) Neutrophils # (Auto) 5.4 x10^3uL (1.8-7.7) Lymphocytes # (Auto) 1.4 x10^3/uL (1.0-4.8) Monocytes # (Auto) 0.7 x10^3/uL (0.0-1.1) Eosinophils # (Auto) 0.3 x10^3/uL (0.0-0.7) Basophils # (Auto) 0.0 x10^3/uL (0.0-0.2) Sodium Level 142 mmol/L (136-145) Potassium Level 4.1 mmol/L (3.5-5.1) Chloride Level 106 mmol/L (98-107) Carbon Dioxide Level 32 mmol/L (21-32) Anion Gap 4 (6-14) Blood Urea Nitrogen 25 mg/dL (7-20) Creatinine 0.7 mg/dL (0.6-1.0) Estimated GFR (Cockcroft-Gault) 85.9 BUN/Creatinine Ratio 36 (6-20) Glucose Level 100 mg/dL (70-99) Calcium Level 8.6 mg/dL (8.5-10.1) Total Bilirubin 0.9 mg/dL (0.2-1.0) Aspartate Amino Transf (AST/SGOT) 51 U/L (15-37) Alanine Aminotransferase (ALT/SGPT) 28 U/L (14-59) Alkaline Phosphatase 125 U/L (46-116) Ammonia 34 mcmol/L (11-34) Total Protein 5.4 g/dL (6.4-8.2) Albumin 1.5 g/dL (3.4-5.0) Albumin/Globulin Ratio 0.4 (1.0-1.7) Laboratory Tests Test 12/19/17 08:30 White Blood Count 7.8 x10^3/uL (4.0-11.0) Red Blood Count 3.79 x10^6/uL (3.50-5.40) Hemoglobin 12.3 g/dL (12.0-15.5) Hematocrit 36.0 % (36.0-47.0) Mean Corpuscular Volume 95 fL (79-100) Mean Corpuscular Hemoglobin 33 pg (25-35) Mean Corpuscular Hemoglobin Concent 34 g/dL (31-37) Red Cell Distribution Width 15.3 % (11.5-14.5) Platelet Count 105 x10^3/uL (140-400) Neutrophils (%) (Auto) 68 % (31-73) Lymphocytes (%) (Auto) 18 % (24-48) Monocytes (%) (Auto) 9 % (0-9) Eosinophils (%) (Auto) 4 % (0-3) Basophils (%) (Auto) 1 % (0-3) Neutrophils # (Auto) 5.4 x10^3uL (1.8-7.7) Lymphocytes # (Auto) 1.4 x10^3/uL (1.0-4.8) Monocytes # (Auto) 0.7 x10^3/uL (0.0-1.1) Eosinophils # (Auto) 0.3 x10^3/uL (0.0-0.7) Basophils # (Auto) 0.0 x10^3/uL (0.0-0.2) Sodium Level 142 mmol/L (136-145) Potassium Level 4.1 mmol/L (3.5-5.1) Chloride Level 106 mmol/L (98-107) Carbon Dioxide Level 32 mmol/L (21-32) Anion Gap 4 (6-14) Blood Urea Nitrogen 25 mg/dL (7-20) Creatinine 0.7 mg/dL (0.6-1.0) Estimated GFR (Cockcroft-Gault) 85.9 BUN/Creatinine Ratio 36 (6-20) Glucose Level 100 mg/dL (70-99) Calcium Level 8.6 mg/dL (8.5-10.1) Total Bilirubin 0.9 mg/dL (0.2-1.0) Aspartate Amino Transf (AST/SGOT) 51 U/L (15-37) Alanine Aminotransferase (ALT/SGPT) 28 U/L (14-59) Alkaline Phosphatase 125 U/L (46-116) Ammonia 34 mcmol/L (11-34) Total Protein 5.4 g/dL (6.4-8.2) Albumin 1.5 g/dL (3.4-5.0) Albumin/Globulin Ratio 0.4 (1.0-1.7) Medications Current Medications Sodium Chloride 1,000 ml @ 100 mls/hr Q10H IV Last administered on 12/17/17at 15:39; Start 12/17/17 at 15:27; Stop 12/17/17 at 17:22; Status DC Iohexol (Omnipaque 300 Mg/ml) 75 ml 1X ONCE IV Last administered on at 16:06; Start 12/17/17 at 16:00; Stop 12/17/17 at 16:01; Status DC Info (CONTRAST GIVEN -- Rx MONITORING) 1 each PRN DAILY PRN MC SEE COMMENTS; Start 12/17/17 at 16:00; Stop 12/19/17 at 15:59 Fentanyl Citrate (Fentanyl 2ml Vial) 50 mcg 1X ONCE IV Last administered on 17:03; Start 12/17/17 at 16:45; Stop 12/17/17 at 16:50; Status DC Ondansetron HCl (Zofran) 4 mg 1X ONCE IV Last administered on 12/17/17 17:02 ; Start 12/17/17 at 17:00; Stop 12/17/17 at 17:01; Status DC Ondansetron HCl (Zofran) 4 mg PRN Q6HRS PRN IV NAUSEA/VOMITING Last administered on 12/18/17at 09:41; Start 12/17/17 at 17:30 Ondansetron HCl (Zofran Odt) 4 mg PRN Q6HRS PRN PO NAUSEA/VOMITING 1ST CHOICE; Start 12/17/17 at 17:30 Guaifenesin (Robitussin Dm) 10 ml PRN Q6HRS PRN PO COUGH Last administered on 12/18/17 01:19; Start 12/17/17 at 17:30; Stop 12/18/17 at 21:02; Status DC Acetaminophen (Tylenol) 500 mg PRN Q6HRS PRN PO MILD PAIN / TEMP Last administered on 12/19/17 04:58; Start 12/17/17 at 17:30 Folic Acid (Folic Acid) 1 mg DAILY PO Last administered on 12/19/17 09:02; Start 12/17/17 at 18:30 Rifaximin (Xifaxan) 550 mg DAILY PO Last administered on 12/18/17 09:45; Start 12/17/17 at 18:30; Stop 12/18/17 at 13:02; Status DC Polyethylene Glycol (miraLAX PACKET) 17 gm DAILY PO Last administered on 09:01; Start 12/17/17 at 18:30 Albuterol Sulfate (Ventolin Neb Soln) 2.5 mg PRN Q4HRS PRN NEB SHORTNESS OF BREATH Last administered on 12/19/17 07:46; Start 12/17/17 at 17:30 Aspirin (Children'S Aspirin) 81 mg DAILYWBKFT PO Last administered on 09:02; Start 12/17/17 at 18:30 Alprazolam (Xanax) 0.25 mg PRN Q8HRS PRN PO ANXIETY / AGITATION Last administered on 12/18/17 21:55; Start 12/17/17 at 17:30 Magnesium Sulfate/ Dextrose 100 ml @ 100 mls/hr 1X ONCE IV Last administered on 12/17/17at 17:51; Start 12/17/17 at 17:30; Stop 12/17/17 at 18:29; Status DC Ceftriaxone Sodium 1 gm/ Dextrose 50 ml @ 100 mls/hr Q24H IV ; Start 12/17/17 at 17:45; Status UNV Guaifenesin (Robitussin Dm) 10 ml PRN Q6HRS PRN PO COUGH; Start 12/17/17 at 17 :45 Lactobacillus Rhamnosus (Culturelle) 1 cap BID PO Last administered on 09:01; Start 12/17/17 at 21:00 Ceftriaxone Sodium (Rocephin) 1 gm Q24H IVP Last administered on 12/18/17 16: 09; Start 12/17/17 at 18:30 Fentanyl Citrate (Fentanyl 2ml Vial) 50 mcg PRN Q2HR PRN IV PAIN Last administered on 12/19/17 09:03; Start 12/17/17 at 19:30 Influenza Virus Vaccine (Afluria Trivalent [id number] Syringe) 0.5 ml ONCE ONCE VAX IM Last administered on 12/18/17 09:47; Start 12/17/17 at 20:00; Stop 12/17/17 at 20:01; Status DC Lisinopril (Prinivil) 5 mg DAILY PO Last administered on 12/19/17 09:02; Start 12/18/17 at 12:00 Furosemide (Lasix) 60 mg 1X ONCE IVP Last administered on 12/18/17at 11:51; Start 12/18/17 at 11:45; Stop 12/18/17 at 11:46; Status DC Rifaximin (Xifaxan) 550 mg BID PO Last administered on 12/19/17 09:02; Start 12/18/17 at 21:00 Lactulose (Lactulose) 20 gm QID PO Last administered on 12/19/17at 09:01; Start 12/18/17 at 13:00 Al Hydroxide/Mg Hydroxide (Mylanta Plus Xs) 20 ml PRN Q3HRS PRN PO HEARTBURN / GAS Last administered on 12/18/17at 23:52; Start 12/18/17 at 23:45 Active Scripts Active Prednisone 50 Mg Tablet 1 Tab PO DAILY Miralax (Polyethylene Glycol 3350) 17 Gm Powd.pack 1 Packet PO DAILY Amox Tr-K Clv 875-125 Mg Tab (Amoxicillin/Potassium Clav) 1 Each Tablet 1 Tab PO BID Reported Proair Hfa Inhaler (Albuterol Sulfate) 8.5 Gm Hfa.aer.ad 1 Puff INH Folic Acid 1 Mg Tablet 1 Mg PO Spironolactone 50 Mg Tablet 50 Mg PO Propranolol Hcl 10 Mg Tablet 10 Mg PO Lansoprazole 30 Mg Capsule.dr 30 Mg PO Xifaxan (Rifaximin) 550 Mg Tablet 1 Tab PO Ondansetron Odt (Ondansetron) 4 Mg Tab.rapdis 1 Tab PO Vitals/I & O Vital Sign - Last 24 Hours 12/18/17 12/18/17 12/18/17 12/18/17 15:00 16:09 18:40 19:00 Temp 98.5 97.7 98.5 97.7 Pulse 94 82 Resp 20 B/P (MAP) 107/86 (93) 154/67 (96) Pulse Ox 91 95 O2 Delivery Nasal Cannula Nasal Cannula Nasal Cannula Nasal Cannula O2 Flow Rate 2.0 2.0 12/18/17 12/18/17 12/18/17 12/18/17 20:00 21:55 23:04 23:53 Temp 98.1 98.1 Pulse 85 Resp 16 20 16 B/P (MAP) 153/61 (91) Pulse Ox 95 94 94 O2 Delivery Nasal Cannula Nasal Cannula Nasal Cannula Nasal Cannula O2 Flow Rate 2.0 2.0 2.0 12/19/17 12/19/17 12/19/17 12/19/17 01:59 02:30 03:04 07:00 Temp 98.8 98.4 98.8 98.4 Pulse 87 103 Resp 16 16 20 22 B/P (MAP) 149/73 (98) 147/87 (107) Pulse Ox 94 91 91 90 O2 Delivery Nasal Cannula Nasal Cannula Nasal Cannula Nasal Cannula O2 Flow Rate 2.0 2.0 12/19/17 12/19/17 12/19/17 12/19/17 07:46 08:00 09:02 09:03 Pulse 87 B/P (MAP) 149/73 Pulse Ox 96 96 O2 Delivery Nasal Cannula Nasal Cannula Nasal Cannula O2 Flow Rate 2.0 2.0 2.0 12/19/17 11:00 Temp 98.3 98.3 Pulse 82 Resp 20 B/P (MAP) 161/76 (104) Pulse Ox 93 O2 Delivery Nasal Cannula Intake and Output 12/18/17 12/18/17 12/19/17 15:00 23:00 07:00 Intake Total 0 ml Output Total 350 ml 0 ml Balance -350 ml 0 ml MODESTA OLIVA MD Dec 19, 2017 12:44
--- NOTE | 2017-12-19 14:39 | PDOC ---
Subjective: Subjective: Feeling a little better - breathing better. Tolerating PO, no stools. Has heartburn. Says I need to contact [facility] and tell them what's going on. Objective: Objective: Has Mylanta. Vital Signs: Vital Signs Date Time Temp Pulse Resp B/P (MAP) Pulse Ox O2 Delivery O2 Flow Rate FiO2 12/19/17 11:00 98.3 82 20 161/76 (104) 93 Nasal Cannula 98.3 12/19/17 09:33 2.0 Labs: Laboratory Tests Test 12/19/17 08:30 White Blood Count 7.8 x10^3/uL Red Blood Count 3.79 x10^6/uL Hemoglobin 12.3 g/dL Hematocrit 36.0 % Mean Corpuscular Volume 95 fL Mean Corpuscular Hemoglobin 33 pg Mean Corpuscular Hemoglobin Concent 34 g/dL Red Cell Distribution Width 15.3 % Platelet Count 105 x10^3/uL Neutrophils (%) (Auto) 68 % Lymphocytes (%) (Auto) 18 % Monocytes (%) (Auto) 9 % Eosinophils (%) (Auto) 4 % Basophils (%) (Auto) 1 % Neutrophils # (Auto) 5.4 x10^3uL Lymphocytes # (Auto) 1.4 x10^3/uL Monocytes # (Auto) 0.7 x10^3/uL Eosinophils # (Auto) 0.3 x10^3/uL Basophils # (Auto) 0.0 x10^3/uL Sodium Level 142 mmol/L Potassium Level 4.1 mmol/L Chloride Level 106 mmol/L Carbon Dioxide Level 32 mmol/L Anion Gap 4 Blood Urea Nitrogen 25 mg/dL Creatinine 0.7 mg/dL Estimated GFR (Cockcroft-Gault) 85.9 BUN/Creatinine Ratio 36 Glucose Level 100 mg/dL Calcium Level 8.6 mg/dL Total Bilirubin 0.9 mg/dL Aspartate Amino Transf (AST/SGOT) 51 U/L Alanine Aminotransferase (ALT/SGPT) 28 U/L Alkaline Phosphatase 125 U/L Ammonia 34 mcmol/L Total Protein 5.4 g/dL Albumin 1.5 g/dL Albumin/Globulin Ratio 0.4 Imaging: Doppler US IMPRESSION: 1. Patent TIPS. 2. Hepatic cirrhosis with ascites and splenomegaly. 3. Cholelithiasis. 4. Bilateral pleural effusions. Paracentesis 350cc removed PE: GEN: NAD LUNGS: room air HEART: RRR ABD: stable - non-distended, non-tender NEURO/PSYCH: A & O 3 A/P: Hep C cirrhosis s/p TIPS -TIPS patent, minimal ascites s/p paracentesis -on Aldactone, lactulose, and Xifaxan Heartburn Cholelithiasis -- Resume PPI as at home. ?resume Aldcatone BRIDGET ALMANZA Dec 19, 2017 14:39
[2017-12-19 15:00] VITALS: BP 153/68
[2017-12-19] MEDS: MAG HYDROX/ALUMINUM HYD/SIMETH 30 ML ORAL.SUSP PO PRN ×2 (15:03→20:47)
[2017-12-19] MEDS: ALPRAZolam 0.25 MG TABLET PO PRN (17:09)
[2017-12-19] MEDS: PANTOPRAZOLE 40 MG TABLET.DR. PO SCH (17:09)
[2017-12-19] MEDS: cefTRIAXone IV Push 1 GM VIAL. IVP SCH (17:09)
[2017-12-19 19:00] VITALS: BP 132/84
[2017-12-19 23:00] VITALS: BP 142/72
[2017-12-20] MEDS: MAG HYDROX/ALUMINUM HYD/SIMETH 30 ML ORAL.SUSP PO PRN (01:17)
[2017-12-20 03:00] VITALS: BP 140/77
[2017-12-20] MEDS: ACETAMINOPHEN 500 MG TABLET PO PRN (04:29)
[2017-12-20] MEDS: ALPRAZolam 0.25 MG TABLET PO PRN (04:30)
[2017-12-20 07:00] VITALS: BP 144/79
[2017-12-20] MEDS: POLYETHYLENE GLYCOL 3350 17 GM PACKET. PO SCH (09:00)
[2017-12-20] MEDS: LACTULOSE 20 GM/30 ML SOLUTION. PO SCH ×3 (09:00→17:00)
[2017-12-20] MEDS ORDERED: SPIRONOLACTONE 25 MG TABLET PO SCH ×2 (09:00)
[2017-12-20] MEDS: PANTOPRAZOLE 40 MG TABLET.DR. PO SCH (09:40)
[2017-12-20] MEDS: rifAXIMin 550 MG TABLET PO SCH (09:41)
[2017-12-20] MEDS: ASPIRIN CHEWABLE 81 MG TABLET. PO SCH (09:41)
[2017-12-20] MEDS: FOLIC ACID 1 MG TABLET. PO SCH (09:41)
[2017-12-20] MEDS: LACTOBACILLUS RHAMNOSUS GG 1 CAPSULE. PO SCH (09:41)
[2017-12-20] MEDS: LISINOPRIL 5 MG TABLET. PO SCH (09:41)
[2017-12-20] MEDS ORDERED: LACT20SO PO (09:58)
--- NOTE | 2017-12-20 10:01 | PDOC3 ---
Discharge Summary Visit Information Date of Admission: Dec 17, 2017 Date of Discharge: Dec 20, 2017 Admitting Diagnosis Comment: Pleuritic chest pain in the background of greenish cough-no pneumonia on chest x -ray Nbchm-tb-curccaer pleural effusion bilateral - SOA on exertion Ascites, history TIPS - s/p paracentesis 3 L (12/19) Chronic liver disease Svgv-fxsaljvnr-[id number] 1.7 - replaced Severe PCM, albumin 1.8 Elevated ammonia-54, on lactulose at home Final Diagnosis Problems Medical Problems: (1) Chest pain Status: Acute (2) Cirrhosis of liver Status: Acute (3) Shortness of breath Status: Acute Brief Hospital Course Allergies Allergies Coded Allergies Type Severity Reaction Last Updated Verified azithromycin Allergy Intermediate 05/05/16 Yes diphenhydramine Allergy Intermediate 05/05/16 Yes morphine Allergy Intermediate 05/05/16 Yes Vital Signs Vital Signs Date Time Temp Pulse Resp B/P (MAP) Pulse Ox O2 Delivery O2 Flow Rate FiO2 12/20/17 09:41 90 140/77 12/20/17 03:00 97.9 18 93 Nasal Cannula 3.0 97.9 Lab Results Laboratory Tests Test 12/19/17 08:30 White Blood Count 7.8 x10^3/uL (4.0-11.0) Red Blood Count 3.79 x10^6/uL (3.50-5.40) Hemoglobin 12.3 g/dL (12.0-15.5) Hematocrit 36.0 % (36.0-47.0) Mean Corpuscular Volume 95 fL (79-100) Mean Corpuscular Hemoglobin 33 pg (25-35) Mean Corpuscular Hemoglobin Concent 34 g/dL (31-37) Red Cell Distribution Width 15.3 % (11.5-14.5) Platelet Count 105 x10^3/uL (140-400) Neutrophils (%) (Auto) 68 % (31-73) Lymphocytes (%) (Auto) 18 % (24-48) Monocytes (%) (Auto) 9 % (0-9) Eosinophils (%) (Auto) 4 % (0-3) Basophils (%) (Auto) 1 % (0-3) Neutrophils # (Auto) 5.4 x10^3uL (1.8-7.7) Lymphocytes # (Auto) 1.4 x10^3/uL (1.0-4.8) Monocytes # (Auto) 0.7 x10^3/uL (0.0-1.1) Eosinophils # (Auto) 0.3 x10^3/uL (0.0-0.7) Basophils # (Auto) 0.0 x10^3/uL (0.0-0.2) Sodium Level 142 mmol/L (136-145) Potassium Level 4.1 mmol/L (3.5-5.1) Chloride Level 106 mmol/L (98-107) Carbon Dioxide Level 32 mmol/L (21-32) Anion Gap 4 (6-14) Blood Urea Nitrogen 25 mg/dL (7-20) Creatinine 0.7 mg/dL (0.6-1.0) Estimated GFR (Cockcroft-Gault) 85.9 BUN/Creatinine Ratio 36 (6-20) Glucose Level 100 mg/dL (70-99) Calcium Level 8.6 mg/dL (8.5-10.1) Total Bilirubin 0.9 mg/dL (0.2-1.0) Aspartate Amino Transf (AST/SGOT) 51 U/L (15-37) Alanine Aminotransferase (ALT/SGPT) 28 U/L (14-59) Alkaline Phosphatase 125 U/L (46-116) Ammonia 34 mcmol/L (11-34) Total Protein 5.4 g/dL (6.4-8.2) Albumin 1.5 g/dL (3.4-5.0) Albumin/Globulin Ratio 0.4 (1.0-1.7) Brief Hospital Course Ms. Glass is a 57 old white male with history of alcoholism but has been sober ever since had diagnosis of cirrhosis status post TIPS, etc complicated liver hx - all her records are at . She comes here because of some confusion elevated ammonia and ascites. Needed to be tapped and much better mentation better and feeling better after paracentesis of 3 L fluid. Some mild or small pleural effusion not needing to be thoracentesis as per pulmonary. She needed prescription for pain meds, refill of lactulose and advised to continue spironolactone by GI. Consults performed GI, pulmonary, IR Procedures performed paracentesis by IR 12/19/17, 3 L of abdominal fluid No PT needs. Compliance emphasized, she has some issues with noncompliance. DC time 31 minutes with 50% DC education counseling compliance, Rx on chart Discharge Information Condition at Discharge: Improved, Stable Disposition/Orders: D/C to Home Scheduled Amoxicillin/Potassium Clav (Amox Tr-K Clv 875-125 Mg Tab) 1 Each Tablet, 1 TAB PO BID, #10 Prescribed by: LIZ COULTER on 05/13/161117 Last Action: HELD on 12/17/171723 by SAWYER CRAIG Polyethylene Glycol 3350 (Miralax) 17 Gm Powd.pack, 1 PACKET PO DAILY, #30 Ref 3 Prescribed by: LIZ COULTER on 05/13/161117 Last Action: Converted on 12/17/171723 by SAWYER CRAIG Prednisone (Prednisone) 50 Mg Tablet, 1 TAB PO DAILY, #5 Prescribed by: SACHIN SCHUSTER on 04/15/171758 Last Action: HELD on 12/17/171723 by SAWYER CRAIG Scheduled PRN Lactulose (Lactulose) 20 Gm/30 Ml Solution, 20 GM PO TID PRN PRN for CONSTIPATION for 14 Days Prescribed by: SAWYER CRAIG on 12/20/17 0958 Miscellaneous Medications Albuterol Sulfate (Proair Hfa Inhaler) 8.5 Gm Hfa.aer.ad, 1 PUFF INH for SHORTNESS OF BREATH, Ref 0 (Reported) Entered as Reported by: Ismael Mcallister on 05/05/16432 Last Action: Converted on 12/17/171723 by SAWYER CRAIG Folic Acid (Folic Acid) 1 Mg Tablet, 1 MG PO, (Reported) Entered as Reported by: Ismael Mcallister on 05/05/16432 Last Action: Continued on 12/17/171723 by SAWYER CRAIG Lansoprazole (Lansoprazole) 30 Mg Capsule.dr, 30 MG PO, (Reported) Entered as Reported by: Ismael Mcallister on 05/05/16431 Last Action: HELD on 12/17/171723 by SAWYER CRAIG Ondansetron (Ondansetron Odt) 4 Mg Tab.rapdis, 1 TAB PO, #16 (Reported) Entered as Reported by: Ismael Mcallister on 05/05/16431 Last Action: HELD on 12/17/171723 by SAWYER CRAIG Propranolol Hcl (Propranolol Hcl) 10 Mg Tablet, 10 MG PO, (Reported) Entered as Reported by: Ismael Mcallister on 05/05/16432 Last Action: HELD on 12/17/171723 by SAWYER CRAIG Rifaximin (Xifaxan) 550 Mg Tablet, 1 TAB PO, #28 (Reported) Entered as Reported by: Ismael Mcallister on 05/05/16431 Last Action: Continued on 12/17/171723 by SAWYER CRAIG Spironolactone (Spironolactone) 50 Mg Tablet, 50 MG PO, (Reported) Entered as Reported by: Ismael Mcallister on 05/05/16432 Last Action: HELD on 12/17/171723 by SAWYER BARBER MD Dec 20, 2017 10:00
[2017-12-20 11:00] VITALS: BP 118/61
--- NOTE | 2017-12-20 11:32 | PDOC ---
PULMONARY PROGRESS NOTES Subjective PT NOT SOA Vitals Vital Signs Date Time Temp Pulse Resp B/P (MAP) Pulse Ox O2 Delivery O2 Flow Rate FiO2 12/20/17 09:41 90 140/77 12/20/17 03:00 97.9 18 93 Nasal Cannula 3.0 97.9 ROS: No Nausea, No Chest Pain, No Abdominal Pain, No Increase Cough General: Alert Lungs: Clear Cardiovascular: S1, S2, Other (DISTENTDED) Abdomen: Soft Neuro Exam: Alert Extremities: No Edema Skin: Warm Labs Laboratory Tests Test 12/19/17 08:30 White Blood Count 7.8 x10^3/uL (4.0-11.0) Red Blood Count 3.79 x10^6/uL (3.50-5.40) Hemoglobin 12.3 g/dL (12.0-15.5) Hematocrit 36.0 % (36.0-47.0) Mean Corpuscular Volume 95 fL (79-100) Mean Corpuscular Hemoglobin 33 pg (25-35) Mean Corpuscular Hemoglobin Concent 34 g/dL (31-37) Red Cell Distribution Width 15.3 % (11.5-14.5) Platelet Count 105 x10^3/uL (140-400) Neutrophils (%) (Auto) 68 % (31-73) Lymphocytes (%) (Auto) 18 % (24-48) Monocytes (%) (Auto) 9 % (0-9) Eosinophils (%) (Auto) 4 % (0-3) Basophils (%) (Auto) 1 % (0-3) Neutrophils # (Auto) 5.4 x10^3uL (1.8-7.7) Lymphocytes # (Auto) 1.4 x10^3/uL (1.0-4.8) Monocytes # (Auto) 0.7 x10^3/uL (0.0-1.1) Eosinophils # (Auto) 0.3 x10^3/uL (0.0-0.7) Basophils # (Auto) 0.0 x10^3/uL (0.0-0.2) Sodium Level 142 mmol/L (136-145) Potassium Level 4.1 mmol/L (3.5-5.1) Chloride Level 106 mmol/L (98-107) Carbon Dioxide Level 32 mmol/L (21-32) Anion Gap 4 (6-14) Blood Urea Nitrogen 25 mg/dL (7-20) Creatinine 0.7 mg/dL (0.6-1.0) Estimated GFR (Cockcroft-Gault) 85.9 BUN/Creatinine Ratio 36 (6-20) Glucose Level 100 mg/dL (70-99) Calcium Level 8.6 mg/dL (8.5-10.1) Total Bilirubin 0.9 mg/dL (0.2-1.0) Aspartate Amino Transf (AST/SGOT) 51 U/L (15-37) Alanine Aminotransferase (ALT/SGPT) 28 U/L (14-59) Alkaline Phosphatase 125 U/L (46-116) Ammonia 34 mcmol/L (11-34) Total Protein 5.4 g/dL (6.4-8.2) Albumin 1.5 g/dL (3.4-5.0) Albumin/Globulin Ratio 0.4 (1.0-1.7) Medications Active Scripts Medications Dose Route/Sig Max Daily Dose Days Date Category Prednisone 50 Mg Tablet 1 Tab PO DAILY 04/15/17 Rx Miralax (Polyethylene Glycol 3350) 17 Gm Powd.pack 1 Packet PO DAILY 05/13/16 Rx Amox Tr-K Clv 875-125 Mg Tab (Amoxicillin/Potassium Clav) 1 Each Tablet 1 Tab PO BID 05/13/16 Rx Proair Hfa Inhaler (Albuterol Sulfate) 8.5 Gm Hfa.aer.ad 1 Puff INH 05/05/16 Reported Folic Acid 1 Mg Tablet 1 Mg PO 05/05/16 Reported Spironolactone 50 Mg Tablet 50 Mg PO 05/05/16 Reported Propranolol Hcl 10 Mg Tablet 10 Mg PO 05/05/16 Reported Lansoprazole 30 Mg Capsule.dr 30 Mg PO 05/05/16 Reported Xifaxan (Rifaximin) 550 Mg Tablet 1 Tab PO 05/05/16 Reported Ondansetron Odt (Ondansetron) 4 Mg Tab.rapdis 1 Tab PO 05/05/16 Reported Impression . IMPRESSION: 1. Chronic respiratory failure, multifactorial. 2. Bilateral pleural effusion secondary to ascites. 3. Ascites secondary to end-stage liver disease. 4. End-stage liver disease, status post transjugular intrahepatic portosystemic shunt. 5. Tobacco dependent. 6. Chronic obstructive pulmonary disease. 7. Accelerated hypertension. 8. Coagulopathy. 9. Protein malnutrition, present upon admission. Plan . OK TO D/C NO RESP DISTRESS 1. The patient states that she feels better status post paracentesis. 2. Not enough fluid to warrant a thoracentesis. 3. Continue treatment of COPD with oxygen supplementation, nebulized treatments. 4. The patient instructed on the importance to discontinue tobacco use. SHANTELL PAL MD Dec 20, 2017 11:32
[2017-12-20 15:00] VITALS: BP 113/55
== END 2017-12-20 18:19 | disposition home or self-care (01) | DRG 441 ==
LOC: ER 15:15 → 5 NORTH 17:00
PROVIDERS: ADMIT Internal Medicine; ATTEND Internal Medicine
PROC: 0W9G3ZZ Drainage of Peritoneal Cavity, Percutaneous Approach (ICD-10-PCS; principal; 2017-12-17)
DX: K72.90 Hepatic failure, unspecified without coma (principal); E43 Unspecified severe protein-calorie malnutrition; N18.6 End stage renal disease; J90 Pleural effusion, not elsewhere classified; R18.8 Other ascites; J96.10 Chronic respiratory failure, unspecified whether with hypoxia or hypercapnia; D68.9 Coagulation defect, unspecified; I12.0 Hypertensive chronic kidney disease with stage 5 chronic kidney disease or end stage renal disease; R07.89 Other chest pain; K74.60 Unspecified cirrhosis of liver; B19.20 Unspecified viral hepatitis C without hepatic coma; D69.59 Other secondary thrombocytopenia; E83.42 Hypomagnesemia; F10.21 Alcohol dependence, in remission; F17.210 Nicotine dependence, cigarettes, uncomplicated; F31.9 Bipolar disorder, unspecified; F43.10 Post-traumatic stress disorder, unspecified; J44.9 Chronic obstructive pulmonary disease, unspecified; K21.9 Gastro-esophageal reflux disease without esophagitis; M19.90 Unspecified osteoarthritis, unspecified site; K80.20 Calculus of gallbladder without cholecystitis without obstruction; M81.0 Age-related osteoporosis without current pathological fracture; Z60.2 Problems related to living alone; Z79.899 Other long term (current) drug therapy; Z91.19 Patient's noncompliance with other medical treatment and regimen; Z99.81 Dependence on supplemental oxygen; Z88.8 Allergy status to other drugs, medicaments and biological substances; Z90.49 Acquired absence of other specified parts of digestive tract; Z68.34 Body mass index [BMI] 34.0-34.9, adult
CPT/HCPCS: 36415; 36600; 49083; 71045; 71275; 80053; 80061; 81001; 82140; 82553; 82805; 83690; 83735; 83880; 84484; 85025; 85610; 87086; 90471; 90756; 93005; 93306; 93976; 94640; 94760; 96361; 96374; J0696; J1940; J2405; J3010; J3475; J7030; J7613; Q0162; Q9967; 99285-25; Q2035